=== PATIENT | male | born 1940 | race Caucasian/White ===

== ENCOUNTER 2017-03-23 09:37 | Emergency (ER) | payer MEDICARE, BC, SELFPAY | END 2017-03-23 13:12 | disposition home or self-care (01) | PROVIDERS: Emergency Provider Emergency Medicine; Family Provider Nurse Practitioner; Visit Provider Emergency Medicine | DX: R07.9 Chest pain, unspecified (principal); S22.49XA Multiple fractures of ribs, unspecified side, initial encounter for closed fracture; W19.XXXA Unspecified fall, initial encounter; I10 Essential (primary) hypertension; E78.5 Hyperlipidemia, unspecified; E11.8 Type 2 diabetes mellitus with unspecified complications; Y93.9 Activity, unspecified; Y92.9 Unspecified place or not applicable; Z79.02 Long term (current) use of antithrombotics/antiplatelets; Z79.82 Long term (current) use of aspirin; Z79.899 Other long term (current) drug therapy; Z87.891 Personal history of nicotine dependence | CPT/HCPCS: 36415; 71010; 80053; 82550; 82553; 84484; 85025; 93005; 93041; 96374; 99284 ==

== ENCOUNTER → 2017-04-27 10:50 | Outpatient (CLI) | payer MEDICARE, OTHER, SELFPAY ==
--- NOTE | 2017-04-27 11:01 | NVE_ITS ---
Venous Exam Indications: 782.3 Edema. IMPRESSIONS 1. There is no evidence of significant Reflux. 2. No evidence of deep or superficial vein thrombosis involving the left lower extremity Left lower extremity venous duplex evaluation. Doppler flow study including spectral analysis, color and gomez scale imaging. Location: Vascular laboratory. Patient status: Outpatient. CRITICAL FINDINGS - Reported to: LU Moe Read back and verified. - 04/27/17 - 1115 - NONE Tables: Venous flow and imaging: + +-------+ + Location Overall Flow properties + +-------+ + Left common femoral Patent Normal phasicity; spontaneous; normal augmentation; compressible + +-------+ + Left saphenofemoral junction Patent Compressible + +-------+ + Left profunda femoral Patent Compressible + +-------+ + Left femoral Patent Normal phasicity; spontaneous; normal augmentation; compressible + +-------+ + Left greater saphenous Patent Normal phasicity; spontaneous; normal augmentation; compressible + +-------+ + Left popliteal Patent Normal phasicity; spontaneous; normal augmentation; compressible + +-------+ + Left posterior tibial Patent Compressible + +-------+ + Left peroneal Patent Compressible + +-------+ + Left gastrocnemius Patent Compressible + +-------+ + Left soleal Patent Compressible + +-------+ + (Report amended ) Electronically signed by: Salas Alex [id number]
== END ==
PROVIDERS: PCP Nurse Practitioner; Visit Provider Internal Medicine Cardiovascular Disease
DX: M79.605 Pain in left leg (principal); I25.10 Atherosclerotic heart disease of native coronary artery without angina pectoris; I10 Essential (primary) hypertension; N18.3 Chronic kidney disease, stage 3 (moderate); E78.5 Hyperlipidemia, unspecified; I45.10 Unspecified right bundle-branch block
CPT/HCPCS: 93971

== ENCOUNTER → 2017-05-06 11:09 | Outpatient (CLI) | payer MEDICARE, OTHER, SELFPAY ==
[2017-05-06 16:39] LABS: Anion Gap 15.4 mEq/L (5-15); Blood Urea Nitrogen 33 mg/dL (7-18); Carbon Dioxide 26 mmol/L (21.0-32.0); Chloride 101 mmol/L (98-107); Creatinine,Serum 2.49 mg/dL (0.70-1.30); Estimated Glomerular Filt Rate 25 ml/min (>60); GFR (African American) 31 ML/MIN (>60); Glucose 157 mg/dL (74-106); Potassium 4.4 mmoL/L (3.5-5.1); Sodium 138 mmol/L (136-145)
== END ==
PROVIDERS: PCP Nurse Practitioner; Visit Provider Internal Medicine Cardiovascular Disease
DX: N18.3 Chronic kidney disease, stage 3 (moderate) (principal); E78.5 Hyperlipidemia, unspecified; I10 Essential (primary) hypertension; I25.10 Atherosclerotic heart disease of native coronary artery without angina pectoris
CPT/HCPCS: 36415; 80048

== ENCOUNTER → 2017-05-26 11:33 | Outpatient (CLI) | payer MEDICARE, OTHER, SELFPAY ==
[2017-05-26 13:36] LABS: Carbon Dioxide 26 mmol/L (21.0-32.0); Chloride 100 mmol/L (98-107); Sodium 136 mmol/L (136-145)
[2017-05-26 13:55] LABS: Blood Urea Nitrogen 38 mg/dL (7-18); Creatinine,Serum 2.54 mg/dL (0.70-1.30); Estimated Glomerular Filt Rate 25 ml/min (>60); GFR (African American) 30 ML/MIN (>60); Glucose 187 mg/dL (74-106)
== END ==
PROVIDERS: Family Provider Nurse Practitioner; PCP Nurse Practitioner; Visit Provider Internal Medicine Cardiovascular Disease
DX: R60.0 Localized edema (principal); N18.3 Chronic kidney disease, stage 3 (moderate); I25.10 Atherosclerotic heart disease of native coronary artery without angina pectoris; I10 Essential (primary) hypertension; E78.4 Other hyperlipidemia
CPT/HCPCS: 36415; 80048

== ENCOUNTER 2017-07-07 07:49 | Observation (INO) ==
[2017-07-07 09:02] LABS: Basophils % 0.7 % (0.1-2.0); Eosinophils # 0.2 K/mm3 (0.0-0.4); Eosinophils % 3.6 % (0.1-12.0); Hematocrit 37.8 % (42.0-52.0); Hemoglobin 12.4 g/dL (14.1-18.0); Lymphocytes # 1.9 K/mm3 (0.7-4.5); Lymphocytes % 28.3 K/mm3 (10-50); Mean Corpuscular HGB Conc 32.7 g/dL (31.8-35.4); Mean Corpuscular Hemoglobin 29.7 pg (27.0-31.2); Mean Corpuscular Volume 90.8 fl (80-94); Mean Platelet Volume 7.8 fl (7.4-10.4); Monocytes # 0.4 K/mm3 (0.1-1.0); Monocytes % 6.4 % (1.7-9.3); Neutrophils % 61.1 % (37.0-80.0); Platelet Count 241 K/mm3 (142-424); Red Blood Count 4.17 M/mm3 (4.60-6.20); Red Cell Distribution Width 13.7 % (11.5-17.5); White Blood Count 6.6 K/mm3 (4.8-10.8)
[2017-07-07 09:14] LABS: Anion Gap 11.3 mEq/L (5-15); Potassium 4.3 mmoL/L (3.5-5.1)
--- NOTE | 2017-07-07 13:55 | Progress Note ---
[facility] Anesthesia Checklist - Patient Identification Patient Identification: Arm Band - Structural Data Admitted From: Home Planned Operative Procedure/s: left heart cath Consent for Planned Operative Procedure(s) Verified: Yes Verified Documents: Surgical Consent, History and Physical - NPO Status Verified Time NPO: 00:00 - Additional verifications Anesthesia Reactions: No - Airway Assessment C-Spine Mobility Assessed: Yes (mp2) TMJ Mobility Assessed: Yes - Neurological Assessment Level of Consciousness: Awake, Alert - Anesthesia Plan Anesthesia Risk discussed: Yes Anesthesia Plan: Verified ASA Class: III Anesthesia Type: [facility] Anesthesia HX I have reviewed the patient's past medical history: Yes Medical History: Reports:: Coronary Artery Disease, Diabetes Mellitus Type 2, Hyperlipidemia, Hypertension, Renal Disease, Renal Insufficiency Denies:: Cancer, Diabetes Mellitus Type 1, Internal Pacemaker, MRSA, Seizures Other Surgeries: Yes: Hernia Repair, Other. No: Pacemaker Amputation: No Fractures: No *Family Hx:: Coronary Artery Disease, Heart Attack
--- NOTE | 2017-07-07 16:39 | History & Physical Report ---
*Admission Date: 07/07/17 *Chief complaint: As of breath *History of present illness: 6-year-old male with known coronary artery disease who has been experiencing nocturnal chest pain and shortness of breath despite medical therapies. Today he underwent left heart catheterization which revealed patent stents but evidence of pulmonary hypertension was discovered. Cardiology service requested admission to primary service for monitoring of response to diuretics. Patient was given 80 mg of Lasix after cardiac catheterization at approximately 130 and at the time of this dictation (430) has put out nearly 2 L of clear urine. Patient himself has known atrial fibrillation in addition to coronary artery disease. He has been experiencing shortness of breath in addition to chest pain. He is resting comfortably in the bed at this time and denies any problems. [facility] History I have reviewed the patient's past medical history: Yes Medical History: Reports:: Congestive Heart Failure, Coronary Artery Disease, Diabetes Mellitus Type 2, Hyperlipidemia, Hypertension, Renal Disease, Renal Insufficiency Denies:: Cancer, Diabetes Mellitus Type 1, Internal Pacemaker, MRSA, Seizures Other Surgeries: Yes: Hernia Repair, Other. No: Pacemaker Amputation: No Fractures: No - *Social History Educational Level: Attended High School Smoking Status: Former smoker Tobacco Type: cigarettes Alcohol Intake: never Alcohol Intake Frequency:: other Occupational Status: retired, disabled Housing: house Household Members: significant other - Psychiatric History Expresses thoughts of harming self/others: None Suicide Plan Description: No Plan *Family Hx:: Coronary Artery Disease, Heart Attack Review of Systems - Review of Systems Review of systems:: pertinent systems reviewed and negative unless documented below Meds Home Medications Medication Instructions Recorded Confirmed Type atenolol 25 mg tablet 25 mg PO QDAY 04/26/17 07/07/17 History calcium carbonate 600 mg calcium 600 mg PO QDAY tab 04/26/17 07/07/17 History (1,500 mg) tablet cholecalciferol (vitamin D3) 5,000 5,000 unit PO QDAY 04/26/17 07/07/17 History unit capsule clopidogrel 75 mg tablet 75 mg PO QDAY 04/26/17 07/07/17 History diphenhydramine 25 mg capsule 25 mg PO Q6H cap 04/26/17 07/07/17 History diphenoxylate-atropine 2.5 2 tab PO Q6H tab 04/26/17 07/07/17 History mg-0.025 mg tablet fenofibrate nanocrystallized 145 145 mg PO QDAY 04/26/17 07/07/17 History mg tablet fluticasone 50 mcg/actuation nasal 50 mcg INTRANASAL ONCE 04/26/17 07/07/17 History spray,suspension furosemide 40 mg tablet 40 mg PO QDAY 04/26/17 07/07/17 History glucosamine HCl 1,500 mg tablet 1,500 mg PO QDAY 04/26/17 07/07/17 History hydralazine 25 mg tablet 12.5 mg PO TID tab 04/26/17 07/07/17 History insulin detemir (U-100) 100 65 unit SUB-Q QAM ml 04/26/17 07/07/17 History unit/mL subcutaneous solution lactobacillus combination no.8 3 3,000 mmu cells PO QDAY 04/26/17 07/07/17 History billion cell capsule loperamide 2 mg tablet 2 mg PO QDAY tab 04/26/17 07/07/17 History loratadine 10 mg tablet 10 mg PO QDAY 04/26/17 07/07/17 History lovastatin 40 mg tablet 40 mg PO QDAY 04/26/17 07/07/17 History methylsulfonylmethane 1,000 mg 1,000 mg PO ONCE cap 04/26/17 07/07/17 History capsule omega 7-nxe-pdr-fish oil 1,000 mg 1 cap PO DAILY 04/26/17 07/07/17 History (120 mg-180 mg) capsule potassium 99 mg tablet 99 mg PO QDAY 04/26/17 07/07/17 History tamsulosin 0.4 mg capsule 0.4 mg PO QDAY 04/26/17 07/07/17 History isosorbide mononitrate ER 30 mg 30 mg PO BID tab 07/06/17 07/07/17 History tablet,extended release 24 hr Ranolazine [Ranexa] 1,000 mg PO Q12H 07/07/17 07/07/17 History Allergies Allergy/AdvReac Type Severity Reaction Status Date / Time azithromycin Allergy Mild Verified 07/07/17 16:19 clindamycin Allergy Mild Verified 07/07/17 16:19 Penicillins Allergy Mild Verified 07/07/17 16:19 ticagrelor [From Brilinta] Allergy Mild Verified 07/07/17 16:19 mycins Allergy Mild Uncoded 07/07/17 16:19 Exam Vital signs and Labs for Last 24 Hours: Temp Pulse Resp BP Pulse Ox 98.1 F 79 18 185/83 95 07/07/17 15:47 07/07/17 15:47 07/07/17 15:47 07/07/17 15:47 07/07/17 15:47 Laboratory Results - last 24 hr 07/07/17 08:47: WBC 6.6, RBC 4.17 L, Hgb 12.4 L, Hct 37.8 L, MCV 90.8, MCH 29.7 , MCHC 32.7, RDW 13.7, Plt Count 241, MPV 7.8, Neut % (Auto) 61.1, Lymph % (Auto ) 28.3, [place] % (Auto) 6.4, Eos % (Auto) 3.6, Baso % (Auto) 0.7, Neut # (Auto) 4.0, Lymph # (Auto) 1.9, [place] # (Auto) 0.4, Eos # (Auto) 0.2, Baso # (Auto) 0.0 07/07/17 08:47: Sodium 141, Potassium 4.3, Chloride 104, Carbon Dioxide 30, Anion Gap 11.3, BUN 52 H, Creatinine 3.15 H, Estimated Creat Clear 29, Estimated GFR 19 L*, Est GFR ( Amer) 23 L, Glucose 127 H, Troponin I 0.02 I & O for Last 24 hours: Intake & Output 07/05/17 07/06/17 07/07/17 07/08/17 11:59 11:59 11:59 11:59 Output Total 1700 / 1700 Balance -1700 / -1700 Weight 231 lb 222 lb Narrative: Patient is awake and alert sitting up in bed. Oropharynx is moist. Neck is without jugular venous distention. Lungs are clear to auscultation. Heart rate is irregularly irregular. Abdomen is soft and nontender. Extremities are without any edema and he has a dry lightly erythematous rash on the dorsum of the left foot. H&P: Result - Labs Labs: Short CBC 07/07/17 Range/Units 08:47 WBC 6.6 (4.8-10.8) K/mm3 Hgb 12.4 L (14.1-18.0) g/dL Hct 37.8 L (42.0-52.0) % Plt Count 241 (142-424) K/mm3 BMP 07/07/17 08:47 Sodium 141 Potassium 4.3 Chloride 104 Carbon Dioxide 30 BUN 52 H Creatinine 3.15 H Glucose 127 H Cardiac Enzymes 07/07/17 Range/Units 08:47 Troponin I 0.02 (0.00-0.06) ng/ml Assessment and Plan (1) Chronic kidney disease, stage IV (severe) Current visit: Yes Status: Acute Category: Medical Code(s): N18.4 - Chronic kidney disease, stage 4 (severe) (2) Pulmonary artery hypertension Current visit: Yes Status: Acute Category: Medical Code(s): I27.21 - Secondary pulmonary arterial hypertension (3) Coronary arteriosclerosis Current visit: No Status: Chronic Category: Medical Code(s): I25.10 - Atherosclerotic heart disease of [place] coronary artery without angina pectoris (4) Hypertensive disorder Current visit: No Status: Chronic Qualifiers: Category: Medical Code(s): I10 - Essential (primary) hypertension - Assessment and plan all Dx Assessment and Plan for all problems:: Patient is having an excellent response to diuresis. Benjamin catheter is in place. Monitor further urine output overnight but I do not plan to give him any further diuretics. If there are no significant changes patient will be discharged in the morning
--- NOTE | 2017-07-07 16:55 | Discharge Summary ---
General - General Admission date: 07/07/17 Discharge date: 07/08/17 HPI HPI: MD 6-year-old male with known coronary artery disease who has been experiencing nocturnal chest pain and shortness of breath despite medical therapies. Today he underwent left heart catheterization which revealed patent stents but evidence of pulmonary hypertension was discovered. Cardiology service requested admission to primary service for monitoring of response to diuretics. Patient was given 80 mg of Lasix after cardiac catheterization at approximately 130 and at the time of this dictation (430) has put out nearly 2 L of clear urine. Patient himself has known atrial fibrillation in addition to coronary artery disease. He has been experiencing shortness of breath in addition to chest pain. He is resting comfortably in the bed at this time and denies any problems. Hospital Course Hospital Course: Patient was admitted after being given Lasix for diuresis due to elevated left ventricular diastolic pressures and pulmonary hypertension. Patient had excellent response to initial dose of 80 mg of furosemide intravenously putting out over 2 L of fluid within a few hours of administration of medication. Urine output was monitored with Benjamin catheter. Patient did not have any dyspnea while hospitalized. He continued good urine output and was discharged home the following morning. Patient will follow up with Dr. Rodrigez in his clinic. Objective Vital signs: Temp Pulse Resp BP Pulse Ox 98.1 F 79 18 185/83 95 07/07/17 15:47 07/07/17 15:47 07/07/17 15:47 07/07/17 15:47 07/07/17 15:47 Results Labs on day of discharge: Labs from last 24 hours 07/07/17 07/07/17 08:47 08:47 WBC 6.6 RBC 4.17 L Hgb 12.4 L Hct 37.8 L MCV 90.8 MCH 29.7 MCHC 32.7 RDW 13.7 Plt Count 241 MPV 7.8 Neut % (Auto) 61.1 Lymph % (Auto) 28.3 [place] % (Auto) 6.4 Eos % (Auto) 3.6 Baso % (Auto) 0.7 Neut # (Auto) 4.0 Lymph # (Auto) 1.9 [place] # (Auto) 0.4 Eos # (Auto) 0.2 Baso # (Auto) 0.0 Sodium 141 Potassium 4.3 Chloride 104 Carbon Dioxide 30 Anion Gap 11.3 BUN 52 H Creatinine 3.15 H Estimated Creat Clear 29 Estimated GFR 19 L* Est GFR ( Amer) 23 L Glucose 127 H Troponin I 0.02 DS: Diagnosis - Discharge Diagnosis (1) Pulmonary artery hypertension Status: Acute (2) Chronic kidney disease, stage IV (severe) Status: Acute (3) Coronary arteriosclerosis Status: Chronic (4) Hypertensive disorder Status: Chronic Discharge Plan - Patient Discharge Instructions ACTIVITY: Continue current activity DIET: other (CHF) Patient Instructions: Heart Failure, Cardiac Catheterization, Surgical Site Infection - Follow up Plan Follow up with: Landon Freitas MD [Staff Physician] - 07/12/17 Yael Tapia APRN [Primary Care Provider] - 07/14/17 Disposition: Home, Self-[facility] Medications: Home Medications Medication Instructions Recorded Confirmed Type atenolol 25 mg tablet 25 mg PO QDAY 04/26/17 07/07/17 History calcium carbonate 600 mg calcium 600 mg PO QDAY tab 04/26/17 07/07/17 History (1,500 mg) tablet cholecalciferol (vitamin D3) 5,000 5,000 unit PO QDAY 04/26/17 07/07/17 History unit capsule clopidogrel 75 mg tablet 75 mg PO QDAY 04/26/17 07/07/17 History diphenhydramine 25 mg capsule 25 mg PO Q6H cap 04/26/17 07/07/17 History diphenoxylate-atropine 2.5 2 tab PO Q6H tab 04/26/17 07/07/17 History mg-0.025 mg tablet fenofibrate nanocrystallized 145 145 mg PO QDAY 04/26/17 07/07/17 History mg tablet fluticasone 50 mcg/actuation nasal 50 mcg INTRANASAL ONCE 04/26/17 07/07/17 History spray,suspension glucosamine HCl 1,500 mg tablet 1,500 mg PO QDAY 04/26/17 07/07/17 History insulin detemir (U-100) 100 65 unit SUB-Q QAM ml 04/26/17 07/07/17 History unit/mL subcutaneous solution lactobacillus combination no.8 3 3,000 mmu cells PO QDAY 04/26/17 07/07/17 History billion cell capsule loperamide 2 mg tablet 2 mg PO QDAY tab 04/26/17 07/07/17 History loratadine 10 mg tablet 10 mg PO QDAY 04/26/17 07/07/17 History lovastatin 40 mg tablet 40 mg PO QDAY 04/26/17 07/07/17 History methylsulfonylmethane 1,000 mg 1,000 mg PO ONCE cap 04/26/17 07/07/17 History capsule omega 7-ftv-mek-fish oil 1,000 mg 1 cap PO DAILY 04/26/17 07/07/17 History (120 mg-180 mg) capsule potassium 99 mg tablet 99 mg PO QDAY 04/26/17 07/07/17 History tamsulosin 0.4 mg capsule 0.4 mg PO QDAY 04/26/17 07/07/17 History isosorbide mononitrate ER 30 mg 30 mg PO BID tab 07/06/17 07/07/17 History tablet,extended release 24 hr Ranolazine [Ranexa] 1,000 mg PO Q12H 07/07/17 07/07/17 History Prescriptions/Medication Reconciliation: Continue atenolol 25 mg tablet 25 mg PO QDAY diphenhydramine 25 mg capsule 25 mg PO Q6H cap calcium carbonate 600 mg calcium (1,500 mg) tablet 600 mg PO QDAY tab fluticasone 50 mcg/actuation nasal spray,suspension 50 mcg INTRANASAL ONCE glucosamine HCl 1,500 mg tablet 1,500 mg PO QDAY insulin detemir (U-100) 100 unit/mL subcutaneous solution 65 unit SUB-Q QAM ml diphenoxylate-atropine 2.5 mg-0.025 mg tablet 2 tab PO Q6H tab loratadine 10 mg tablet 10 mg PO QDAY lovastatin 40 mg tablet 40 mg PO QDAY methylsulfonylmethane 1,000 mg capsule 1,000 mg PO ONCE cap potassium 99 mg tablet 99 mg PO QDAY lactobacillus combination no.8 3 billion cell capsule 3,000 mmu cells PO QDAY tamsulosin 0.4 mg capsule 0.4 mg PO QDAY fenofibrate nanocrystallized 145 mg tablet 145 mg PO QDAY cholecalciferol (vitamin D3) 5,000 unit capsule 5,000 unit PO QDAY loperamide 2 mg tablet 2 mg PO QDAY tab isosorbide mononitrate ER 30 mg tablet,extended release 24 hr 30 mg PO BID tab nitroglycerin 0.4 mg sublingual tablet 0.4 mg SUBLINGUAL Q5M PRN #100 tab PRN Reason: chest pain omega 7-zqd-oxh-fish oil 1,000 mg (120 mg-180 mg) capsule 1 cap PO DAILY clopidogrel 75 mg tablet 75 mg PO QDAY Ranolazine [Ranexa] 1,000 mg PO Q12H Hydralazine HCl [Hydralazine HCl 25mg Tablet] 12.5 mg PO TID #90 tab Furosemide [Furosemide 40MG tAB] 40 mg PO QDAY #60 tab Discontinued furosemide 20 mg tablet 20 mg PO QDAY #30 tab
[2017-07-08 05:46] LABS: Hematocrit 35.1 % (42.0-52.0); Hemoglobin 11.4 g/dL (14.1-18.0)
--- NOTE | 2017-07-08 07:57 | Progress Note ---
Internal Medicine - PN: Subj *Date: 07/08/17 *Time: 07:56 Interval history: Saw patient this morning, covering for Dr. Da Silva, patient is pleasant, up on the side of the bed eating breakfast, feels great, no chest pain, Exam Vital signs and Labs for Last 24 Hours: Temp Pulse Resp BP Pulse Ox 97.6 F 60 18 112/44 92 L 07/08/17 03:52 07/08/17 04:00 07/08/17 03:52 07/08/17 03:52 07/08/17 03:52 Laboratory Results - last 24 hr 07/07/17 08:47: WBC 6.6, RBC 4.17 L, Hgb 12.4 L, Hct 37.8 L, MCV 90.8, MCH 29.7 , MCHC 32.7, RDW 13.7, Plt Count 241, MPV 7.8, Neut % (Auto) 61.1, Lymph % (Auto ) 28.3, [place] % (Auto) 6.4, Eos % (Auto) 3.6, Baso % (Auto) 0.7, Neut # (Auto) 4.0, Lymph # (Auto) 1.9, [place] # (Auto) 0.4, Eos # (Auto) 0.2, Baso # (Auto) 0.0 07/07/17 08:47: Sodium 141, Potassium 4.3, Chloride 104, Carbon Dioxide 30, Anion Gap 11.3, BUN 52 H, Creatinine 3.15 H, Estimated Creat Clear 29, Estimated GFR 19 L*, Est GFR ( Amer) 23 L, Glucose 127 H, Troponin I 0.02 07/07/17 21:37: POC Glucose 206 07/08/17 05:30: Hgb 11.4 L, Hct 35.1 L 07/08/17 05:30: Creatinine 3.04 H, Estimated Creat Clear 29, Estimated GFR 20 L , Est GFR ( Amer) 24 L I & O for Last 24 hours: Intake & Output 07/05/17 07/06/17 07/07/17 07/08/17 11:59 11:59 11:59 11:59 Intake Total 720 / 720 Output Total 2150 / 2150 Balance -1430 / -1430 Weight 231 lb 219 lb 6 oz Narrative: Lungs clear bilaterally, heart rate regular. No edema. Patient is awake, alert and pleasant. Assessment and Plan (1) Chronic kidney disease, stage IV (severe) Current visit: Yes Status: Acute Category: Medical Code(s): N18.4 - Chronic kidney disease, stage 4 (severe) (2) Pulmonary artery hypertension Current visit: Yes Status: Acute Category: Medical Code(s): I27.21 - Secondary pulmonary arterial hypertension (3) Coronary arteriosclerosis Current visit: No Status: Chronic Category: Medical Code(s): I25.10 - Atherosclerotic heart disease of [place] coronary artery without angina pectoris (4) Hypertensive disorder Current visit: No Status: Chronic Qualifiers: Category: Medical Code(s): I10 - Essential (primary) hypertension - Assessment and plan all Dx Assessment and Plan for all problems:: Patient is nicely improved after diuresis. Agree with discharge plan outlined by Dr. Da Silva.
== END 2017-07-08 09:15 | disposition home or self-care (01) ==
LOC: CATHLAB 07:49 → 2ND 15:27 → INTOOBSV 15:27
PROVIDERS: ADMIT Family Medicine; ATTEND Family Medicine

== ENCOUNTER → 2017-08-11 08:41 | Outpatient (CLI) | payer MEDICARE, SELFPAY ==
[2017-08-11 10:46] LABS: Anion Gap 12.7 mEq/L (5-15); Blood Urea Nitrogen 35 mg/dL (7-18); Carbon Dioxide 29 mmol/L (21.0-32.0); Chloride 106 mmol/L (98-107); Creatinine,Serum 2.68 mg/dL (0.70-1.30); Estimated Glomerular Filt Rate 23 ml/min (>60); GFR (African American) 28 ML/MIN (>60); Glucose 99 mg/dL (74-106); Potassium 4.7 mmoL/L (3.5-5.1); Sodium 143 mmol/L (136-145)
== END ==
PROVIDERS: Visit Provider Internal Medicine Cardiovascular Disease
DX: I50.9 Heart failure, unspecified (principal); I10 Essential (primary) hypertension; I25.10 Atherosclerotic heart disease of native coronary artery without angina pectoris
CPT/HCPCS: 36415; 80048

== ENCOUNTER → 2017-09-01 08:27 | Outpatient (CLI) | payer MEDICARE, SELFPAY ==
[2017-09-01 10:07] LABS: Anion Gap 14.3 mEq/L (5-15); Blood Urea Nitrogen 66 mg/dL (7-18); Carbon Dioxide 30 mmol/L (21.0-32.0); Chloride 102 mmol/L (98-107); Estimated Glomerular Filt Rate 16 ml/min (>60); GFR (African American) 19 ML/MIN (>60); Glucose 111 mg/dL (74-106); Potassium 4.3 mmoL/L (3.5-5.1); Sodium 142 mmol/L (136-145)
[2017-09-01 10:18] LABS: Creatinine,Serum 3.72 mg/dL (0.70-1.30)
== END ==
PROVIDERS: Visit Provider Internal Medicine Cardiovascular Disease
DX: R60.9 Edema, unspecified (principal); I25.10 Atherosclerotic heart disease of native coronary artery without angina pectoris; I10 Essential (primary) hypertension
CPT/HCPCS: 36415; 80048

== ENCOUNTER → 2017-09-05 08:04 | Outpatient (CLI) | payer MEDICARE, SELFPAY ==
[2017-09-05 10:46] LABS: Anion Gap 13.5 mEq/L (5-15); Blood Urea Nitrogen 66 mg/dL (7-18); Carbon Dioxide 31 mmol/L (21.0-32.0); Chloride 100 mmol/L (98-107); Estimated Glomerular Filt Rate 15 ml/min (>60); GFR (African American) 19 ML/MIN (>60); Glucose 79 mg/dL (74-106); Potassium 4.5 mmoL/L (3.5-5.1); Sodium 140 mmol/L (136-145)
[2017-09-05 11:06] LABS: Creatinine,Serum 3.82 mg/dL (0.70-1.30)
== END ==
PROVIDERS: Visit Provider Physician Assistant
DX: N18.4 Chronic kidney disease, stage 4 (severe) (principal); I25.10 Atherosclerotic heart disease of native coronary artery without angina pectoris; E78.5 Hyperlipidemia, unspecified; I10 Essential (primary) hypertension
CPT/HCPCS: 36415; 80048

== ENCOUNTER → 2017-10-03 07:53 | Outpatient (CLI) | payer MEDICARE, SELFPAY ==
[2017-10-03 08:02] LABS: Microscopic, Urine URINE MICROSCOPIC (MICROSCOPIC)
[2017-10-03 08:30] LABS: Appearance,Urine CLEAR (Clear); Bilirubin,Urine Negative (Negative); Blood, Urine Negative (Negative); Color,Urine YELLOW (Yellow); Glucose,Urine (UA) Negative (Negative); Ketones,Urine Negative (Negative); Leukocyte Esterase,Urine Negative (Negative); Nitrate,Urine Negative (Negative); Protein,Urine Negative (Negative); Specific Gravity, Urine 1.015 (1.005-1.030); Urobilinogen,Urine 0.2 EU/dl (0.2)
[2017-10-03 08:33] LABS: Basophils # 0.1 K/mm3 (0-0.2); Basophils % 0.8 % (0.1-2.0); Eosinophils # 0.4 K/mm3 (0.0-0.4); Eosinophils % 5.3 % (0.1-12.0); Hematocrit 38.8 % (42.0-52.0); Hemoglobin 12.7 g/dL (14.1-18.0); Lymphocytes # 1.9 K/mm3 (0.7-4.5); Lymphocytes % 27.3 K/mm3 (10-50); Mean Corpuscular HGB Conc 32.8 g/dL (31.8-35.4); Mean Corpuscular Hemoglobin 29.7 pg (27.0-31.2); Mean Corpuscular Volume 90.6 fl (80-94); Mean Platelet Volume 7.6 fl (7.4-10.4); Monocytes # 0.5 K/mm3 (0.1-1.0); Monocytes % 6.6 % (1.7-9.3); Neutrophils # 4.1 K/mm3 (1.8-7.8); Platelet Count 252 K/mm3 (142-424); Red Blood Count 4.28 M/mm3 (4.60-6.20); Red Cell Distribution Width 13.8 % (11.5-17.5); White Blood Count 6.8 K/mm3 (4.8-10.8)
[2017-10-03 08:48] LABS: Bacteria,Urine Trace /lpf; Squamous Epithelial Cell,Urine Occasional #/hpf (0-5)
[2017-10-03 08:51] LABS: Creatinine,Urine Random 96 mg/dL (20-320); Total Protein,Urine Random 18.5 mg/dL (0.0-11.9)
[2017-10-03 09:02] LABS: Albumin Level 3.6 gm/dL (3.4-5.0); Anion Gap 14.1 mEq/L (5-15); Blood Urea Nitrogen 47 mg/dL (7-18); Calcium 8.4 mg/dL (8.5-10.1); Carbon Dioxide 28 mmol/L (21.0-32.0); Chloride 103 mmol/L (98-107); Creatinine,Serum 3.48 mg/dL (0.70-1.30); Estimated Glomerular Filt Rate 17 ml/min (>60); GFR (African American) 21 ML/MIN (>60); Glucose 96 mg/dL (74-106); Potassium 4.1 mmoL/L (3.5-5.1); Sodium 141 mmol/L (136-145)
[2017-10-05 08:06] LABS: Vitamin D 25 Hydroxy 56.1 ng/mL (30.0-100.0)
[2017-10-05 08:07] LABS: Parathyroid Hormone Intact 66 pg/mL (15-65)
== END ==
PROVIDERS: Visit Provider Internal Medicine Nephrology
DX: N18.4 Chronic kidney disease, stage 4 (severe) (principal)
CPT/HCPCS: 36415; 80069; 81001; 82570; 82652; 83970; 84155; 85025

== ENCOUNTER → 2017-10-09 15:39 | Outpatient (POV) | payer MEDICARE, SELFPAY | PROVIDERS: Family Provider Nurse Practitioner; PCP Nurse Practitioner; Visit Provider Internal Medicine Nephrology | DX: Z00.00 Encounter for general adult medical examination without abnormal findings (principal) ==

== ENCOUNTER → 2017-12-27 11:50 | Outpatient (CLI) | payer MEDICARE, SELFPAY ==
[2017-12-27 14:08] LABS: Chloride 103 mmol/L (98-107); Potassium 3.9 mmoL/L (3.5-5.1)
[2017-12-27 14:50] LABS: Anion Gap 15.9 mEq/L (5-15); Blood Urea Nitrogen 73 mg/dL (7-18); Calcium 8.6 mg/dL (8.5-10.1); Carbon Dioxide 26 mmol/L (21.0-32.0); Estimated Glomerular Filt Rate 14 ml/min (>60); GFR (African American) 17 ML/MIN (>60); Glucose 189 mg/dL (74-106); Sodium 141 mmol/L (136-145)
[2017-12-27 14:59] LABS: Creatinine,Serum 4.12 mg/dL (0.70-1.30)
== END ==
PROVIDERS: Family Provider Nurse Practitioner; PCP Nurse Practitioner; Visit Provider Internal Medicine Cardiovascular Disease
DX: E78.5 Hyperlipidemia, unspecified (principal); I25.10 Atherosclerotic heart disease of native coronary artery without angina pectoris; N18.3 Chronic kidney disease, stage 3 (moderate)
CPT/HCPCS: 36415; 80048

== ENCOUNTER → 2017-12-28 09:43 | Outpatient (CLI) | payer MEDICARE, SELFPAY ==
[2017-12-28 11:23] LABS: Blood Urea Nitrogen 70 mg/dL (7-18); Calcium 8.4 mg/dL (8.5-10.1); Carbon Dioxide 28 mmol/L (21.0-32.0); Chloride 100 mmol/L (98-107); Estimated Glomerular Filt Rate 15 ml/min (>60); GFR (African American) 18 ML/MIN (>60); Glucose 153 mg/dL (74-106); Sodium 139 mmol/L (136-145)
[2017-12-28 11:53] LABS: Creatinine,Serum 3.92 mg/dL (0.70-1.30)
== END ==
PROVIDERS: PCP Nurse Practitioner; Visit Provider Physician Assistant
DX: E78.5 Hyperlipidemia, unspecified (principal); I25.10 Atherosclerotic heart disease of native coronary artery without angina pectoris; I27.21 Secondary pulmonary arterial hypertension; N18.4 Chronic kidney disease, stage 4 (severe); R60.0 Localized edema
CPT/HCPCS: 36415; 80048; 83880

== ENCOUNTER → 2018-01-03 11:35 | Outpatient (CLI) | payer MEDICARE, SELFPAY ==
[2018-01-03 12:46] LABS: Basophils # 0.1 K/mm3 (0-0.2); Basophils % 0.7 % (0.1-2.0); Eosinophils # 0.2 K/mm3 (0.0-0.4); Eosinophils % 2.6 % (0.1-12.0); Hematocrit 35.3 % (42.0-52.0); Hemoglobin 11.6 g/dL (14.1-18.0); Lymphocytes # 1.8 K/mm3 (0.7-4.5); Lymphocytes % 24.9 K/mm3 (10-50); Mean Corpuscular HGB Conc 32.9 g/dL (31.8-35.4); Mean Corpuscular Hemoglobin 29.5 pg (27.0-31.2); Mean Corpuscular Volume 89.8 fl (80-94); Mean Platelet Volume 7.6 fl (7.4-10.4); Monocytes # 0.4 K/mm3 (0.1-1.0); Monocytes % 5.1 % (1.7-9.3); Neutrophils # 4.9 K/mm3 (1.8-7.8); Neutrophils % 66.8 % (37.0-80.0); Platelet Count 268 K/mm3 (142-424); Red Blood Count 3.93 M/mm3 (4.60-6.20); Red Cell Distribution Width 14.3 % (11.5-17.5); White Blood Count 7.3 K/mm3 (4.8-10.8)
[2018-01-03 14:24] LABS: Albumin Level 3.5 gm/dL (3.4-5.0); Anion Gap 14.8 mEq/L (5-15); Blood Urea Nitrogen 62 mg/dL (7-18); Calcium 8.5 mg/dL (8.5-10.1); Carbon Dioxide 29 mmol/L (21.0-32.0); Chloride 98 mmol/L (98-107); Estimated Glomerular Filt Rate 15 ml/min (>60); GFR (African American) 18 ML/MIN (>60); Glucose 121 mg/dL (74-106); Phosphorous 4.1 mg/dL (2.4-4.9); Potassium 3.8 mmoL/L (3.5-5.1); Sodium 138 mmol/L (136-145)
[2018-01-03 14:28] LABS: Creatinine,Serum 3.85 mg/dL (0.70-1.30)
[2018-01-04 08:37] LABS: Vitamin D 25 Hydroxy 56.2 ng/mL (30.0-100.0)
[2018-01-04 16:21] LABS: Calcium, Ionized 4.8 mg/dL (4.5-5.6)
[2018-01-05 06:31] LABS: Parathyroid Hormone Intact 76 pg/mL (15-65)
== END ==
PROVIDERS: PCP Nurse Practitioner; Visit Provider Internal Medicine Nephrology
DX: N18.4 Chronic kidney disease, stage 4 (severe) (principal)
CPT/HCPCS: 36415; 80069; 82330; 82652; 83970; 85025

== ENCOUNTER → 2018-01-17 13:48 | Outpatient (CLI) | payer MEDICARE, SELFPAY ==
[2018-01-17 15:47] VITALS: PULSE 67; PULSE 72
== END ==
PROVIDERS: Family Provider Nurse Practitioner; PCP Nurse Practitioner; Visit Provider Internal Medicine Cardiovascular Disease
DX: R06.09 Other forms of dyspnea (principal)
CPT/HCPCS: 94060; 94640

== ENCOUNTER → 2018-03-09 11:24 | Outpatient (CLI) | payer MEDICARE, SELFPAY ==
[2018-03-09 12:02] LABS: Basophils # 0.1 K/mm3 (0-0.2); Basophils % 0.8 % (0.1-2.0); Eosinophils # 0.3 K/mm3 (0.0-0.4); Eosinophils % 4.1 % (0.1-12.0); Hematocrit 37.1 % (42.0-52.0); Hemoglobin 12.1 g/dL (14.1-18.0); Lymphocytes # 1.8 K/mm3 (0.7-4.5); Lymphocytes % 22.4 % (10-50); Mean Corpuscular HGB Conc 32.5 g/dL (31.8-35.4); Mean Corpuscular Volume 92.2 fl (80-94); Mean Platelet Volume 7.9 fl (7.4-10.4); Monocytes # 0.4 K/mm3 (0.1-1.0); Monocytes % 5.1 % (1.7-9.3); Neutrophils # 5.4 K/mm3 (1.8-7.8); Neutrophils % 67.7 % (37.0-80.0); Platelet Count 206 K/mm3 (142-424); Red Blood Count 4.02 M/mm3 (4.60-6.20); Red Cell Distribution Width 14.5 % (11.5-17.5)
[2018-03-09 14:11] LABS: Albumin Level 3.4 gm/dL (3.4-5.0); Anion Gap 15.9 mEq/L (5-15); Blood Urea Nitrogen 67 mg/dL (7-18); Calcium 8.8 mg/dL (8.5-10.1); Carbon Dioxide 27 mmol/L (21.0-32.0); Chloride 101 mmol/L (98-107); Creatinine,Serum 2.69 mg/dL (0.70-1.30); Estimated Glomerular Filt Rate 23 ml/min (>60); GFR (African American) 28 ML/MIN (>60); Glucose 228 mg/dL (74-106); Phosphorous 4.5 mg/dL (2.4-4.9); Potassium 3.9 mmoL/L (3.5-5.1); Sodium 140 mmol/L (136-145)
== END ==
PROVIDERS: Visit Provider Internal Medicine Nephrology
DX: N18.4 Chronic kidney disease, stage 4 (severe) (principal)
CPT/HCPCS: 36415; 80069; 85025

== ENCOUNTER → 2018-03-12 15:17 | Outpatient (POV) | payer MEDICARE, SELFPAY | PROVIDERS: Visit Provider Internal Medicine Nephrology | DX: Z00.00 Encounter for general adult medical examination without abnormal findings (principal) ==

== ENCOUNTER → 2018-04-13 10:04 | Outpatient (POV) | payer MEDICARE, SELFPAY | PROVIDERS: Visit Provider Internal Medicine | DX: Z00.00 Encounter for general adult medical examination without abnormal findings (principal) ==

== ENCOUNTER → 2018-04-26 12:46 | Outpatient (CLI) | payer MEDICARE, SELFPAY ==
--- NOTE | 2018-04-26 12:50 | CT_ITS ---
CT lung screening EXAM: CT LUNG LOW DOSE WO CONTRAST HISTORY: 40 pack-year smoking history asymptomatic for lung cancer ITS.REASON: HX TOBACCO USE ORDERING PHYSICIAN: Sravan Coleman MD PATIENT AGE: 77 years COMPARISON: None TECHNIQUE: The exam was performed on a GE Light Speed [address] scanner using 2.90 mGy CTDI. A low dose helical CT CHEST was performed on a multi-detector scanner. All CT scans at the facility use one or more dose reduction, viz: automated exposure control, ma/kV adjustment per patient size (including targeted exams where dose is matched to indication, i.e. head), or iterative reconstruction technique. The LDCT was performed in a facility that meets the criteria for the screening program. Data regarding this exam was submitted to ACR which is an approved registry. The order for this exam indicates that it came as a result of a lung cancer screening counseling shard decision-making visit that included all the elements required of such a visit including smoking cessation. The radiologist interpreting this exam meets the [facility] criteria for the LDCT lung cancer screening program. The exam is reported using the Lung-RADS classification scale and reported to the ACR registry. NOTE: This study was performed for the specific purposes of lung cancer screening and is not an alternative to diagnostic chest CT. RADIATION DOSE: CTDI vol(CT dose Index-volume) = 2.90mG DLP (Dose Length Product) = 127.94 mGcm FINDINGS: There is hyperinflation with attenuation of the peripheral pulmonary vessels and bronchial thickening consistent with obstructive chronic bronchitis. There is an 8 mm subpleural nodule in the left upper lobe posteriorly axial image #29. 7 mm noncalcified nodule left lower lobe axial image #88. Mild scarring in the lung apices with a few subpleural nodular opacities 4 mm or less Extensive coronary artery calcification is noted. There are multiple old right rib fractures of the fifth through eighth ribs. IMPRESSION: 1. Lung RADS Category: 3, probably benign, 8 mm nodule left upper lobe and 7 mm nodule left lower lobe. Suggest 6 month follow-up 2. Other findings: COPD, coronary artery disease RECOMMENDATIONS: 6 month LDCT follow-up
== END ==
PROVIDERS: PCP Nurse Practitioner; Visit Provider Internal Medicine
DX: Z12.2 Encounter for screening for malignant neoplasm of respiratory organs (principal); Z87.891 Personal history of nicotine dependence

== ENCOUNTER → 2018-05-18 12:34 | Outpatient (CLI) | payer MEDICARE, SELFPAY | PROVIDERS: PCP Nurse Practitioner; Visit Provider Internal Medicine Cardiovascular Disease | DX: R00.1 Bradycardia, unspecified (principal) | CPT/HCPCS: 93225 ==

== ENCOUNTER → 2018-05-31 08:44 | Outpatient (CLI) | payer MEDICARE, SELFPAY ==
--- NOTE | 2018-05-31 08:48 | CA_ITS ---
PROCEDURE: 2-D M-mode and color Doppler study INDICATIONS FOR THE TEST: Chest pain COPD Heart Murmur Tobacco Smoking Palpitations Fatigue+ Syncope Edema Hypertension+Diabetes Mellitus+ Rheumatic Fever SOB+NICHOLS Obesity Hyperlipidemia+ Family History HD Additional History CAD, bradycardia, RBBB, dizziness, CHF PATIENT INFORMATION HEIGHT: 75 WEIGHT: 218 GENDER: M B/P: 130/70 2-D/M-MODE INTERPRETATION: 2-D MEASUREMENTS OBSERVED VALUES IN CMS Right Ventricular Dimension (RVDd) 2.1 Interventricular Septum (Thickness)(IVsd) 1.0 Left Ventricular Internal Dimensions(LVIDd) 5.0 Left Ventricular Posterior Wall (Thickness)(LVPWd) 1.0 Aortic Root 3.4 Aortic Cusp Separation 2.1 Left Atrial Dimensions (LAD) 4.6 2D 1. Left atrium is moderately enlarged, left ventricle is normal size, mild concentric left ventricular hypertrophy, visually estimated ejection fraction approximately 35%, there is marked hypokinesis involving the inferolateral and posterolateral wall. 2. The right atrium and right ventricle are normal size and contractility. 3. The aortic valve is thickened and calcified 4. The mitral and tricuspid valve leaflets are minimally thickened. 5. The pulmonic valve is poorly present. 6. No significant pericardial effusion noted. DOPPLER INTERROGATION: 1. The maximum aortic out flow velocity -2.1 m/s, resulting in a mean gradient across valve of 10 mmHg, represents mild aortic stenosis, there is mild aortic insufficiency. 2. The mitral inflow velocity within normal range, there is no mitral stenosis, there is mild mitral regurgitation. Grade 1 diastolic dysfunction seen with tissue Doppler evidence of raised left atrial pressure. 3. Mild tricuspid regurgitation, tricuspid regurgitation jet velocity is inadequate for calculation of the right ventricular systolic pressure. CONCLUSION: 1. Moderately enlarged left atrium, normal left ventricular size, mild concentric left ventricular hypertrophy, visually estimated ejection fraction 35% with multiple segmental wall motion abnormality described above, grade 1 diastolic dysfunction seen with tissue Doppler evidence of raised left atrial pressure. 2. Thickened and calcified aortic valve without Doppler evidence of mild aortic stenosis and mild aortic insufficiency. 3. Mild mitral and tricuspid regurgitation 4. No significant pericardial effusion noted.
== END ==
PROVIDERS: PCP Nurse Practitioner; Visit Provider Internal Medicine
DX: I45.2 Bifascicular block (principal)
CPT/HCPCS: 93306

== ENCOUNTER → 2018-07-09 10:44 | Outpatient (CLI) | payer MEDICARE, SELFPAY ==
[2018-07-09 11:02] LABS: Basophils # 0.1 K/mm3 (0-0.2); Basophils % 0.9 % (0.1-2.0); Eosinophils # 0.5 K/mm3 (0.0-0.4); Eosinophils % 6.2 % (0.1-12.0); Hematocrit 38.1 % (42.0-52.0); Lymphocytes # 1.9 K/mm3 (0.7-4.5); Lymphocytes % 24.2 % (10-50); Mean Corpuscular HGB Conc 34.3 g/dL (31.8-35.4); Mean Corpuscular Hemoglobin 31.5 pg (27.0-31.2); Mean Corpuscular Volume 91.8 fl (80-94); Mean Platelet Volume 8.4 fl (7.4-10.4); Monocytes # 0.4 K/mm3 (0.1-1.0); Monocytes % 5.5 % (1.7-9.3); Neutrophils # 4.9 K/mm3 (1.8-7.8); Neutrophils % 63.3 % (37.0-80.0); Platelet Count 198 K/mm3 (142-424); Red Blood Count 4.14 M/mm3 (4.60-6.20); Red Cell Distribution Width 14.3 % (11.5-17.5); White Blood Count 7.7 K/mm3 (4.8-10.8)
[2018-07-09 11:45] LABS: Albumin Level 3.5 gm/dL (3.4-5.0); Anion Gap 15.2 mEq/L (5-15); Blood Urea Nitrogen 55 mg/dL (7-18); Calcium 8.7 mg/dL (8.5-10.1); Carbon Dioxide 28 mmol/L (21.0-32.0); Chloride 99 mmol/L (98-107); Creatinine,Serum 2.56 mg/dL (0.70-1.30); Estimated Glomerular Filt Rate 24 ml/min (>60); GFR (African American) 29 ML/MIN (>60); Glucose 204 mg/dL (74-106); Phosphorous 4.4 mg/dL (2.4-4.9); Potassium 4.2 mmoL/L (3.5-5.1); Sodium 138 mmol/L (136-145)
[2018-07-10 07:02] LABS: Vitamin D 25 Hydroxy 39.7 ng/mL (30.0-100.0)
[2018-07-10 16:29] LABS: Calcium, Ionized 5.1 mg/dL (4.5-5.6); Parathyroid Hormone Intact 68 pg/mL (15-65)
== END ==
PROVIDERS: Visit Provider Internal Medicine Nephrology
DX: N18.4 Chronic kidney disease, stage 4 (severe) (principal)
CPT/HCPCS: 36415; 80069; 82330; 82652; 83970; 85025

== ENCOUNTER → 2018-07-23 14:33 | Outpatient (POV) | payer MEDICARE, SELFPAY | PROVIDERS: Visit Provider Internal Medicine Nephrology | DX: Z00.00 Encounter for general adult medical examination without abnormal findings (principal) ==

== ENCOUNTER 2018-08-23 16:13 | Observation (INO) | payer MEDICARE, SELFPAY ==
[2018-08-23] VITALS (7 sets, daily range): BP systolic 140–160; BP diastolic 56–84; PULSE 58–74; RESP 16–20; TEMP 36.6–37.6; O2SAT 95–99; BMI 27.5; BMI 27.8
--- NOTE | 2018-08-23 16:49 | HMH.EDCP ---
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 The time I documented below is in addition to time spent performing reported procedures but includes the following listed in this critical care notation. Medical Decision Making - Medical Records Medical records reviewed: Yes: I reviewed the patient's medical records. - Sunil Inquiry Pt receiving controlled substance: No Sunil was queried for this patient: No Vital Signs: 08/23/18 16:18 08/23/18 17:17 08/23/18 17:23 Temperature 99.7 F H Temperature Source Oral Pulse Rate [Right] 72 72 74 Respiratory Rate 20 20 20 Blood Pressure [Right Arm] 151/84 H 151/84 H 140/56 L Blood Pressure Mean [Right Arm] 106 106 84 Blood Pressure Source [Right Arm] Automatic Cuff Automatic Cuff Automatic Cuff Blood Pressure Position [Right Arm] Sitting Sitting Sitting 02 Sat by Pulse Oximetry 97 97 95 Oxygen Delivery Method Room Air Room Air Room Air Oxygen Flow Rate (LPM) 08/23/18 17:30 Temperature Temperature Source Pulse Rate [Right] 68 Respiratory Rate 16 Blood Pressure [Right Arm] 147/65 H Blood Pressure Mean [Right Arm] 92 Blood Pressure Source [Right Arm] Automatic Cuff Blood Pressure Position [Right Arm] Supine 02 Sat by Pulse Oximetry 96 Oxygen Delivery Method Nasal Cannula Oxygen Flow Rate (LPM) 2 - Lab Data Lab results reviewed: Yes: I reviewed the patient's lab results. Lab Results 08/23/18 16:50: WBC 8.4, RBC 3.89 L, Hgb 12.3 L, Hct 34.5 L, MCV 88.5, MCH 31.5 H, MCHC 35.5 H, RDW 13.9, Plt Count 256, MPV 7.2 L, Neut % (Auto) 70.4, Lymph % (Auto) 21.5, [place] % (Auto) 5.4, Eos % (Auto) 2.2, Baso % (Auto) 0.6, Neut # (Auto) 5.9, Lymph # (Auto) 1.8, [place] # (Auto) 0.5, Eos # (Auto) 0.2, Baso # (Auto) 0.1 08/23/18 16:50: Sodium 141, Potassium 4.0, Chloride 104, Carbon Dioxide 24, Anion Gap 17.0 H, BUN 51 H, Creatinine 2.57 H, Estimated Creat Clear 33, Estimated GFR 24 L, Est GFR ( Amer) 29 L, Glucose 236 H, Calcium 8.6, Magnesium 2.0, Total Bilirubin 0.4, AST 14 L, ALT 22, Alkaline Phosphatase 103, Troponin I < 0.02, Total Protein 7.1, Albumin 3.2 L, Globulin 3.9 H, Albumin/Globulin Ratio 0.8 L Result diagrams: 08/23/18 16:50 08/23/18 16:50 Orders (Tests/Meds): ED MEDICATIONS Discontinued Medications Generic Name Dose Route Start Last Admin Trade Name Freq PRN Reason Stop Dose Admin Nitroglycerin 1 gm 08/23/18 16:49 08/23/18 17:19 Nitroglycerin 1 Inch Oint Udp TD 08/23/18 16:50 1 gm ONCE ONE Administration ORDERS Category Date Time Status ECG Request by /Snehal Stat Y 08/23/18 16:53 Stop Req - Physician Consults Physician Consulted: veronica Reason -: Pt condition Comment/Response: rec admission Additional Consult: Yamileth Reason -: Pt condition, Cardiology Eval/Care Comment/Response: obs, consult cards - YUSUF Score for Non-Stemi Age of Patient: 70-79 years old Heart Rate: 70-89 bpm Systolic Blood Pressure: 140-159 mmHg Serum Creatinine: 2.00-3.99 mg/dl CHF [place] Class: I-No CHF Other Risk Factors: ST Segment Deviation Non-Stemi Risk Score: 157 Chest Pain HPI - General Chief Complaint: Chest Pain Stated Complaint: chest pain Time Seen by Provider: 08/23/18 17:00 Mode of Arrival: Ambulatory Source of Information: Patient, Spouse Limitations: No Limitations Description of Symptoms (Recalled from ER Triage Doc. by RN): intermittent chest pain beginn
--- NOTE | 2018-08-23 16:50 | XR_ITS ---
XR chest portable HISTORY: ITS.REASON: chest pain ORDERING PHYSICIAN: Dawson Medrano MD PATIENT AGE: 77 years COMPARISON: 06/01/2018 FINDINGS: Cardiomegaly without failure. Bipolar pacer is present from left subclavian approach. There are multiple old right-sided rib fractures. Lungs are clear. IMPRESSION: Old right-sided rib fractures with cardiomegaly, no acute finding
--- NOTE | 2018-08-23 16:52 | ED_ITS ---
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 The time I documented below is in addition to time spent performing reported procedures but includes the following listed in this critical care notation. Medical Decision Making - Medical Records Medical records reviewed: Yes: I reviewed the patient's medical records. - Sunil Inquiry Pt receiving controlled substance: No Sunil was queried for this patient: No Vital Signs: 08/23/18 16:18 08/23/18 17:17 08/23/18 17:23 Temperature 99.7 F H Temperature Source Oral Pulse Rate [Right] 72 72 74 Respiratory Rate 20 20 20 Blood Pressure [Right Arm] 151/84 H 151/84 H 140/56 L Blood Pressure Mean [Right Arm] 106 106 84 Blood Pressure Source [Right Arm] Automatic Cuff Automatic Cuff Automatic Cuff Blood Pressure Position [Right Arm] Sitting Sitting Sitting 02 Sat by Pulse Oximetry 97 97 95 Oxygen Delivery Method Room Air Room Air Room Air Oxygen Flow Rate (LPM) 08/23/18 17:30 Temperature Temperature Source Pulse Rate [Right] 68 Respiratory Rate 16 Blood Pressure [Right Arm] 147/65 H Blood Pressure Mean [Right Arm] 92 Blood Pressure Source [Right Arm] Automatic Cuff Blood Pressure Position [Right Arm] Supine 02 Sat by Pulse Oximetry 96 Oxygen Delivery Method Nasal Cannula Oxygen Flow Rate (LPM) 2 - Lab Data Lab results reviewed: Yes: I reviewed the patient's lab results. Lab Results 08/23/18 16:50: WBC 8.4, RBC 3.89 L, Hgb 12.3 L, Hct 34.5 L, MCV 88.5, MCH 31.5 H, MCHC 35.5 H, RDW 13.9, Plt Count 256, MPV 7.2 L, Neut % (Auto) 70.4, Lymph % (Auto) 21.5, [place] % (Auto) 5.4, Eos % (Auto) 2.2, Baso % (Auto) 0.6, Neut # (Auto) 5.9, Lymph # (Auto) 1.8, [place] # (Auto) 0.5, Eos # (Auto) 0.2, Baso # (Auto) 0.1 08/23/18 16:50: Sodium 141, Potassium 4.0, Chloride 104, Carbon Dioxide 24, Anion Gap 17.0 H, BUN 51 H, Creatinine 2.57 H, Estimated Creat Clear 33, Estimated GFR 24 L, Est GFR ( Amer) 29 L, Glucose 236 H, Calcium 8.6, Magnesium 2.0, Total Bilirubin 0.4, AST 14 L, ALT 22, Alkaline Phosphatase 103, Troponin I < 0.02, Total Protein 7.1, Albumin 3.2 L, Globulin 3.9 H, Albumin/Globulin Ratio 0.8 L Result diagrams: 08/23/18 16:50 08/23/18 16:50 Orders (Tests/Meds): ED MEDICATIONS Discontinued Medications Generic Name Dose Route Start Last Admin Trade Name Freq PRN Reason Stop Dose Admin Nitroglycerin 1 gm 08/23/18 16:49 08/23/18 17:19 Nitroglycerin 1 Inch Oint Udp TD 08/23/18 16:50 1 gm ONCE ONE Administration ORDERS
[2018-08-23 17:10] LABS: Basophils # 0.1 K/mm3 (0-0.2); Basophils % 0.6 % (0.1-2.0); Eosinophils # 0.2 K/mm3 (0.0-0.4); Eosinophils % 2.2 % (0.1-12.0); Hematocrit 34.5 % (42.0-52.0); Hemoglobin 12.3 g/dL (14.1-18.0); Lymphocytes # 1.8 K/mm3 (0.7-4.5); Lymphocytes % 21.5 % (10-50); Mean Corpuscular HGB Conc 35.5 g/dL (31.8-35.4); Mean Corpuscular Hemoglobin 31.5 pg (27.0-31.2); Mean Corpuscular Volume 88.5 fl (80-94); Mean Platelet Volume 7.2 fl (7.4-10.4); Monocytes # 0.5 K/mm3 (0.1-1.0); Monocytes % 5.4 % (1.7-9.3); Neutrophils # 5.9 K/mm3 (1.8-7.8); Neutrophils % 70.4 % (37.0-80.0); Platelet Count 256 K/mm3 (142-424); Red Blood Count 3.89 M/mm3 (4.60-6.20); Red Cell Distribution Width 13.9 % (11.5-17.5); White Blood Count 8.4 K/mm3 (4.8-10.8)
[2018-08-23 18:16] LABS: Alanine Aminotransferase 22 U/L (12-78); Albumin Level 3.2 gm/dL (3.4-5.0); Albumin/Globulin Ratio 0.8 (1.1-1.8); Alkaline Phosphatase 103 U/L (46-116); Aspartate Amino Transferase 14 U/L (15-37); Bilirubin,Total 0.4 mg/dL (0.2-1.0); Blood Urea Nitrogen 51 mg/dL (7-18); Calcium 8.6 mg/dL (8.5-10.1); Carbon Dioxide 24 mmol/L (21.0-32.0); Chloride 104 mmol/L (98-107); Creatinine Clearance Estimated 33 mL/min (50-200); Creatinine,Serum 2.57 mg/dL (0.70-1.30); Estimated Glomerular Filt Rate 24 ml/min (>60); GFR (African American) 29 ML/MIN (>60); Globulin 3.9 gm/dl (1.3-3.2); Glucose 236 mg/dL (74-106); Sodium 141 mmol/L (136-145); Total Protein,Serum 7.1 gm/dL (6.4-8.2); Troponin I < 0.02 ng/ml (0.00-0.06)
--- NOTE | 2018-08-23 18:45 | PC.NURSE ---
call placed to dr martin
--- NOTE | 2018-08-23 19:09 | PC.NURSE ---
dr monet spoke to dr martin
--- NOTE | 2018-08-23 19:13 | PC.NURSE ---
DR POND SPEAKING WITH DR RABAGO AT THIS TIME
--- NOTE | 2018-08-23 20:05 | PC.NURSE ---
PT ARRIVED TO FLOOR VIA WHEELCHAIR FROM ED
[2018-08-23 21:23] LABS: POC Glucose,Bedside 184 (70-110)
[2018-08-23 23:05] LABS: Troponin I 0.03 ng/ml (0.00-0.06)
[2018-08-24] VITALS (7 sets, daily range): BP systolic 123–161; BP diastolic 57–90; PULSE 56–72; RESP 15–20; TEMP 36.4–36.8; O2SAT 97–99; BMI 27.8; BMI 27.7
--- NOTE | 2018-08-24 02:45 | PC.NURSE ---
He has been awake t/o the night. He denies chest pain. He has nitro paste on at this time. Denies SOA and weakness. Has ambulated independently with steady gait.
[2018-08-24 05:14] LABS: Basophils # 0.1 K/mm3 (0-0.2); Basophils % 0.7 % (0.1-2.0); Eosinophils # 0.4 K/mm3 (0.0-0.4); Eosinophils % 4.5 % (0.1-12.0); Hematocrit 38.3 % (42.0-52.0); Hemoglobin 13.4 g/dL (14.1-18.0); Lymphocytes # 2.2 K/mm3 (0.7-4.5); Lymphocytes % 23.4 % (10-50); Mean Corpuscular HGB Conc 35.1 g/dL (31.8-35.4); Mean Corpuscular Volume 88.2 fl (80-94); Mean Platelet Volume 8.3 fl (7.4-10.4); Monocytes # 0.5 K/mm3 (0.1-1.0); Monocytes % 5.7 % (1.7-9.3); Neutrophils # 6.1 K/mm3 (1.8-7.8); Neutrophils % 65.7 % (37.0-80.0); Platelet Count 254 K/mm3 (142-424); Red Blood Count 4.34 M/mm3 (4.60-6.20); Red Cell Distribution Width 13.9 % (11.5-17.5); White Blood Count 9.2 K/mm3 (4.8-10.8)
[2018-08-24 05:21] LABS: POC Glucose,Bedside 154 (70-110)
[2018-08-24 05:22] LABS: Anion Gap 15.5 mEq/L (5-15); Blood Urea Nitrogen 47 mg/dL (7-18); Calcium 8.7 mg/dL (8.5-10.1); Carbon Dioxide 26 mmol/L (21.0-32.0); Chloride 104 mmol/L (98-107); Creatinine Clearance Estimated 37 mL/min (50-200); Creatinine,Serum 2.33 mg/dL (0.70-1.30); Estimated Glomerular Filt Rate 27 ml/min (>60); GFR (African American) 33 ML/MIN (>60); Glucose 158 mg/dL (74-106); Potassium 3.5 mmoL/L (3.5-5.1); Sodium 142 mmol/L (136-145)
[2018-08-24 05:32] LABS: Troponin I 0.04 ng/ml (0.00-0.06)
--- NOTE | 2018-08-24 07:14 | CA_ITS ---
PROCEDURE: 2-D M-mode and color Doppler study INDICATIONS FOR THE TEST: Chest pain COPD Heart Murmur Tobacco SmokingEX Palpitations Fatigue Syncope Edema HypertensionXDiabetes MellitusX Rheumatic Fever SOBXDOE Obesity Hyperlipidemia Family History HD Additional History CM,ABN EKG EF 35% 05/29 PATIENT INFORMATION HEIGHT: 75 WEIGHT:223 GENDER: Male B/P:147/65 2-D/M-MODE INTERPRETATION: 2-D MEASUREMENTS OBSERVED VALUES IN CMS Right Ventricular Dimension (RVDd) 2.5 Interventricular Septum (Thickness)(IVsd) 1.1 Left Ventricular Internal Dimensions(LVIDd) 6.9 Left Ventricular Posterior Wall (Thickness)(LVPWd) 1.2 Aortic Root 3.3 Aortic Cusp Separation 1.5 Left Atrial Dimensions (LAD) 3.6 2D 1. Technically difficult study because of the patient's factor and poor acoustic windows 2. Left atrium is mildly enlarged, left ventricle is mildly dilated, mild concentric left ventricular hypertrophy, visually estimated ejection fraction approximately 35%, there is moderate hypokinesis involving the inferior, distal septum and apical wall. 3. The right atrium and right ventricle are normal size and contractility. There is pacemaker lead seen right ventricle. 4. The aortic valve is thickened and calcified leaflet continue to display mobility. 5. Mitral and tricuspid valve leaflets are minimally thickened. 6. The pulmonic valve is poorly visualized. 7. No significant pericardial effusion noted. DOPPLER INTERROGATION: The maximum aortic out flow velocity recorded study 2.4 m/s, resulting in a mean gradient across valve of 13 mmHg, represents mild aortic stenosis, there is trace aortic insufficiency. Mild mitral and tricuspid regurgitation, tricuspid regurgitation jet velocity is inadequate for calculation of the right ventricular systolic pressure, diastolic parameters are inconclusive. CONCLUSION: 1. Technically difficult study because of the patient's factors and poor acoustic windows 2. Mildly enlarged left atrium, mildly dilated left ventricle, mild concentric left ventricular hypertrophy, visually estimated ejection fraction of 35% with segmental wall motion abnormality described above, diastolic parameters are inconclusive. 3. Thickened and calcified aortic valve with mean gradient across valve of 13 mmHg represents mild aortic stenosis, there is trace aortic insufficiency. 4. Mild mitral and tricuspid regurgitation 5. No significant pericardial effusion noted.
--- NOTE | 2018-08-24 07:25 | HMH.HP ---
*Admission Date: 08/23/18 *Chief complaint: Chest pain *History of present illness: 77-year-old male with history of coronary artery disease presented to the emergency department after he began experiencing left upper chest/pectoral pain that radiated down into his left arm all the way to his middle and index finger as well as thumb. Patient would use nitroglycerin to relieve his pain which he states would take about 2 to 3 minutes but the nitroglycerin would stop the chest discomfort. However with any subsequent light activity such as walking from his recliner to his bathroom at home he would have recurring chest pain. Decision was made to admit the patient for rule out of [place] and cardiology evaluation this morning. Patient ended up taking about 5 nitroglycerin for episodes of chest pain and ultimately decided to come to the emergency department. Patient had Nitropaste applied in the emergency department and reports that overnight he has not had any further episodes of chest pain although reports some upset stomach. Patient's past medical history is significant for LV dysfunction with ejection fraction of 35% on echocardiogram in May 2018, patient is status post pacemaker implantation earlier this year. Last cardiac catheterization was June 2017. [facility] History I have reviewed the patient's past medical history: Yes Medical History: Reports:: Congestive Heart Failure, Coronary Artery Disease, Diabetes Mellitus Type 2, Hyperlipidemia, Hypertension, Internal Pacemaker, Renal Disease, Renal Insufficiency Denies:: Cancer, Diabetes Mellitus Type 1, MRSA, Seizures *Have you ever received a pneumonia vaccine?: No *Have you received a flu vaccine this season?: No Other Medical History: Reports: Other. Denies: Blood Transfusion Reaction Other Surgeries: Yes: Hernia Repair, Pacemaker, Other Amputation: Yes (traumatic tip right index finger) Fractures: No - *Social History Educational Level: Attended High School Smoking Status: Former smoker Tobacco Type: cigarettes # Packs/Day (cigarettes): 4 #Yrs smoked (if former smoker): 50 Smoking End Date: 2010 Alcohol Intake: never Alcohol Intake Frequency:: other Substance Use Type: denies use *Occupational Status:: retired, disabled Housing: house Household Members: significant other *Travel in the last 8 weeks: None - Psychiatric History Expresses thoughts of harming self/others: None Suicide Plan Description: No Plan Family Hx:: Coronary Artery Disease, Heart Attack Review of Systems - Review of Systems Review of systems:: pertinent systems reviewed and negative unless documented below - Constitutional Denies body ache(s), Denies chills, Denies daytime sleepiness - *Cardiovascular Reports chest pain with activity, Reports shortness of breath with activity, Denies chest pain at rest, Denies excessive sweating, Denies irregular heart rhythm, Denies lightheadedness - *Respiratory Reports shortness of breath with activity, Denies chest congestion, Denies cough, Denies shortness of breath, Denies coughing up blood - *Gastrointestinal Comments: Dyspepsia - *Neurologic Denies abnormal movements, Denies behavioral changes, Denies dizziness, Denies localized weakness, Denies numbness Meds Home Medications Medication Instructions Recorded Confirmed Type calcium carbonate 600 mg calcium 600 mg PO DAILY tab 04/26/17 08/23/18 History (1,500 mg) tablet cholecalciferol (vitamin D3) 5,000 5,000 unit PO DAILY 04/26/17 08/23/18 History unit capsule diphenhydramine 25 mg capsule 50 mg PO Q6H cap 04/26/17 08/23/18 History diphenoxylate-atropine 2.5 2 tab PO Q6H tab 04/26/17 08/23/18 History mg-0.025 mg tablet fluticasone propionate 50 50 mcg INTRANASAL DAILY 04/26/17 08/23/18 History mcg/actuation nasal spray,suspension glucosamine HCl 1,500 mg tablet 1,500 mg PO DAILY 04/26/17 08/23/18 History insulin detemir (U-100) 100 60 unit SUB-Q HS ml 04/26/17 08/23/18 History unit/
--- NOTE | 2018-08-24 07:28 | P.HP_ITS ---
*Admission Date: 08/23/18 *Chief complaint: Chest pain *History of present illness: 77-year-old male with history of coronary artery disease presented to the emergency department after he began experiencing left upper chest/pectoral pain that radiated down into his left arm all the way to his middle and index finger as well as thumb. Patient would use nitroglycerin to relieve his pain which he states would take about 2 to 3 minutes but the nitroglycerin would stop the chest discomfort. However with any subsequent light activity such as walking from his recliner to his bathroom at home he would have recurring chest pain. Decision was made to admit the patient for rule out of MD and cardiology evalua tion this morning. Patient ended up taking about 5 nitroglycerin for episodes of chest pain and ultimately decided to come to the emergency department. Patient had Nitropaste applied in the emergency department and reports that overnight he has not had any further episodes of chest pain although reports some upset stomach. Patient's past medical history is significant for LV dysfunction with ejection fraction of 35% on echocardiogram in May 2018, patient is status post pacemaker implantation earlier this year. Last cardiac catheterization was June 2017. [facility] History I have reviewed the patient's past medical history: Yes Medical History: Reports:: Congestive Heart Failure, Coronary Artery Disease, Diabetes Mellitus Type 2, Hyperlipidemia, Hypertension, Internal Pacemaker, Renal Disease, Renal Insufficiency Denies:: Cancer, Diabetes Mellitus Type 1, MRSA, Seizures *Have you ever received a pneumonia vaccine?: No *Have you received a flu vaccine this season?: No Other Medical History: Reports: Other. Denies: Blood Transfusion Reaction Other Surgeries: Yes: Hernia Repair, Pacemaker, Other Amputation: Yes (traumatic tip right index finger) Fractures: No - *Social History Educational Level: Attended High School Smoking Status: Former smoker Tobacco Type: cigarettes # Packs/Day (cigarettes): 4 #Yrs smoked (if former smoker): 50 Smoking End Date: 2010 Alcohol Intake: never Alcohol Intake Frequency:: other Substance Use Type: denies use *Occupational Status:: retired, disabled Housing: house Household Members: significant other *Travel in the last 8 weeks: None - Psychiatric History Expresses thoughts of harming self/others: None Suicide Plan Description: No Plan Family Hx:: Coronary Artery Disease, Heart Attack Review of Systems - Review of Systems Review of systems:: pertinent systems reviewed and negative unless documented below - Constitutional Denies body ache(s), Denies chills, Denies daytime sleepiness - *Cardiovascular Reports chest pain with activity, Reports shortness of breath with activity, Denies chest pain at rest, Denies excessive sweating, Denies irregular heart rhythm, Denies lightheadedness - *Respiratory Reports shortness of breath with activity, Denies chest congestion, Denies cough, Denies shortness of breath, Denies coughing up blood - *Gastrointestinal Comments: Dyspepsia - *Neurologic Denies abnormal movements, Denies behavioral changes, Denies dizziness, Denies localized weakness, Denies numbness Meds Home Medications Medication Instructions Recorded Confirmed Type calcium carbonate 600 mg calcium 600 mg PO DAILY tab 04/26/17 08/23/18 History (1,500 mg) tablet cholecalciferol (vitamin D3) 5,000 5,000 unit PO DAILY 04/26/17 08/23/18 History unit capsule diphenhydramine 25 mg
--- NOTE | 2018-08-24 07:32 | HMH.CNCARD ---
History of Present Illness Consult date: 08/24/18 Requesting physician: John Da Silva Consult reason: chest pain Chief complaint: chest pain Additional Medical History:: 1. CAD A. SAMEERA to LAD, Cx, First diagonal on two separate occasions in 11/2016. B. Ischemic CM, EF 40% at time of cath, 11/2016 with LVEDP of 35 mm Hg C. Echo, 01/2017, Moderate LAE, mild dilated LV, mild conc LVH, EF 40% with multiple seg wall abnormalities. Mild AR, MR, [facility], 06/2017, ANGIOGRAPHIC RESULTS: 1. The left main artery normal 2. The left anterior descending artery has a stent in the proximal to mid segment which is widely patent free of in-stent restenosis with excellent distal and proximal transitioning 3. The circumflex artery is nondominant and has stents in the proximal segment. The stent is widely patent with excellent proximal distal transitioning. The ramus intermedius is a moderate size vessel and has mid vessel 30% concentric stenosis 4. The right coronary artery is a large dominant vessel and has an ostial 20% additional 20% proximal and 30% concentric stenosis. Very distally the right coronary artery has a concentric 40-50% stenosis immediately proximal to the PDA and posterior lateral ventricular branch. Both distal branches are large and widely patent 5. The [facility] ventriculogram reveals moderate left ventricular dilatation ejection fraction 30% 6. The left ventricular end-diastolic pressure severely elevated at 40 mmHg 2. Rib fractures after fall, 03/2017 3. Hyperlipidemia 4. CKD, stage 4 with GFR 24 and Cr 2.57, 08/2018 5. DM 6. Cardiomyopathy A. Echo, 05/2018, 2D 1. Left atrium is moderately enlarged, left ventricle is normal size, mild concentric left ventricular hypertrophy, visually estimated ejection fraction approximately 35%, there is marked hypokinesis involving the inferolateral and posterolateral wall. 2. The right atrium and right ventricle are normal size and contractility. 3. The aortic valve is thickened and calcified 4. The mitral and tricuspid valve leaflets are minimally thickened. 5. The pulmonic valve is poorly present. 6. No significant pericardial effusion noted. DOPPLER INTERROGATION: 1. The maximum aortic out flow velocity 2.1 m/s, resulting in a mean gradient across valve of 10 mmHg, represents mild aortic stenosis, there is mild aortic insufficiency. 2. The mitral inflow velocity within normal range, there is no mitral stenosis, there is mild mitral regurgitation. Grade 1 diastolic dysfunction seen with tissue Doppler evidence of raised left atrial pressure. 3. Mild tricuspid regurgitation, tricuspid regurgitation jet velocity is inadequate for calculation of the right ventricular systolic pressure. CONCLUSION: 1. Moderately enlarged left atrium, normal left ventricular size, mild concentric left ventricular hypertrophy, visually estimated ejection fraction 35% with multiple segmental wall motion abnormality described above, grade 1 diastolic dysfunction seen with tissue Doppler evidence of raised left atrial pressure. 2. Thickened and calcified aortic valve without Doppler evidence of mild aortic stenosis and mild aortic insufficiency. 3. Mild mitral and tricuspid regurgitation 4. No significant pericardial effusion noted 7. [employer] Accolade Dual chamber pacemaker implanted, 06/2018. History of present illness: 77-year-old male with history of coronary artery disease presented to the emergency department after he began experiencing left upper chest/pectoral pain that radiated down into his left arm all the way to his middle and index finger as well as thumb. Patient would use nitroglycerin to relieve his pain which he states would take about 2 to 3 minutes but the nitroglycerin would stop the chest discomfort. However with any subsequent light activity such as walking from his recliner to his bathroom at home he would have recurring chest pain. Decision was made to admit the lolita
--- NOTE | 2018-08-24 07:32 | HMH.PHAVTE ---
[facility] Pharmacy VTE Monitoring - Patient Demographics Admission date: 08/23/18 Report Date: 08/24/18 Time: 07:32 Allergies/Adverse Reactions: Patient Allergies azithromycin Allergy (Mild, Verified 07/06/18 11:38) clindamycin Allergy (Mild, Verified 07/06/18 11:38) Penicillins Allergy (Mild, Verified 07/06/18 11:38) ticagrelor [From Brilinta] Allergy (Mild, Verified 07/06/18 11:38) mycins Allergy (Mild, Uncoded 07/06/18 11:38) Height: 1.91 m Weight: 101.151 kg Patient Problems: Current Active Problems (Updated 08/24/18 @ 07:32 by John Da Silva MD) Unstable angina pectoris (Acute) Chronic renal failure, stage 4 (severe) (Acute) Coronary artery disease (Acute) - VTE Risk Labs: VTE Related Lab Results Hgb 13.4 g/dL (14.1-18.0) L 08/24/18 05:00 Hct 38.3 % (42.0-52.0) L 08/24/18 05:00 Plt Count 254 K/mm3 (142-424) 08/24/18 05:00 BUN 47 mg/dL (7-18) H 08/24/18 05:00 Creatinine 2.33 mg/dL (0.70-1.30) H 08/24/18 05:00 Estimated Creat Clear 37 mL/min (50-200) 08/24/18 05:00 Was VTE Risk Assessment Performed: Yes VTE Score: 5 VTE Risk Level: Low Risk - Prophylaxis VTE Prophylaxis Ordered?: Yes Types of VTE Prophylaxis: TEDS Knee High Location of Applied Device: Bilateral Lower Extremeties - VTE Diagnosis Confirmed Treatment or plan recommended: Continue Current Treatment
[2018-08-24 10:53] LABS: POC Glucose,Bedside 192 (70-110)
--- NOTE | 2018-08-24 11:39 | HMH.PHAINT ---
MEDICATION RECONCILIATION COMPLETED ON PATIENT USING EXTERNAL FILL HISTORY FROM PHARMACY AND PHYSICIAN'S LIST. -[facility]
[2018-08-24 11:52] LABS: POC Glucose,Bedside 213 (70-110)
--- NOTE | 2018-08-24 16:08 | HMH.DCSUM ---
General - General Admission date:: 08/23/18 Discharge date: 08/24/18 HPI HPI: 77-year-old male with history of coronary artery disease presented to the emergency department after he began experiencing left upper chest/pectoral pain that radiated down into his left arm all the way to his middle and index finger as well as thumb. Patient would use nitroglycerin to relieve his pain which he states would take about 2 to 3 minutes but the nitroglycerin would stop the chest discomfort. However with any subsequent light activity such as walking from his recliner to his bathroom at home he would have recurring chest pain. Decision was made to admit the patient for rule out of OR and cardiology evaluation this morning. Patient ended up taking about 5 nitroglycerin for episodes of chest pain and ultimately decided to come to the emergency department. Patient had Nitropaste applied in the emergency department and reports that overnight he has not had any further episodes of chest pain although reports some upset stomach. Patient's past medical history is significant for LV dysfunction with ejection fraction of 35% on echocardiogram in May 2018, patient is status post pacemaker implantation earlier this year. Last cardiac catheterization was June 2017. Hospital Course Hospital Course: Patient was admitted to second floor for additional monitoring and evaluation. Echocardiogram was performed and revealed no changes from previous exam in May. Troponins negative. EKG is a paced rhythm in the 70s with frequent PACs. Patient reports feeling better and ready to go home at this time. Recommendations of cardiology include increase of metoprolol to 100 mg daily, continue current doses of isosorbide, ranexa, and plavis, will F/U with Dr VARGAS in one week. Follow up with myself in one week as well. August 31 at 1pm. Objective Vital signs: Temp Pulse Resp BP Pulse Ox 97.9 F 63 17 139/76 99 08/24/18 15:50 08/24/18 15:50 08/24/18 15:50 08/24/18 15:50 08/24/18 15:50 no acute distress, average body habitus, chronically ill appearing - *Routine Respiratory Exam Present: CTA bilaterally. Absent: accessory muscle use - *Routine Cardiovascular Exam Present: murmur, irregular rhythm - *Routine Abdominal Exam Present: soft, normoactive bowel sounds - *Routine Extremities Exam Present: edema Comments: 1 + pedal edema - *Routine Skin Exam Present: intact, pallor - *Routine Neurological Exam Present: alert, oriented X3 - Routine Psychiatric Exam Present: normal affect Results Labs on day of discharge: Labs from last 24 hours 08/24/18 08/24/18 08/24/18 11:44 08:33 05:04 WBC RBC Hgb Hct MCV MCH MCHC RDW Plt Count MPV Neut % (Auto) Lymph % (Auto) [place] % (Auto) Eos % (Auto) Baso % (Auto) Neut # (Auto) Lymph # (Auto) [place] # (Auto) Eos # (Auto) Baso # (Auto) Sodium Potassium Chloride Carbon Dioxide Anion Gap BUN Creatinine Estimated Creat Clear Estimated GFR Est GFR ( Amer) Glucose POC Glucose 213 H 192 H 154 H Calcium Magnesium Total Bilirubin AST ALT Alkaline Phosphatase Troponin I Total Protein Albumin Globulin Albumin/Globulin Ratio 08/24/18 08/24/18 08/24/18 05:00 05:00 05:00 WBC 9.2 RBC 4.34 L Hgb 13.4 L Hct 38.3 L MCV 88.2 MCH 31.0 MCHC 35.1 RDW 13.9 Plt Count 254 MPV 8.3 Neut % (Auto) 65.7 Lymph % (Auto) 23.4 [place] % (Auto) 5.7 Eos % (Auto) 4.5 Baso % (Auto) 0.7 Neut # (Auto) 6.1 Lymph # (Auto) 2.2 [place] # (Auto) 0.5 Eos # (Auto) 0.4 Baso # (Auto) 0.1 Sodium 142 Potassium 3.5 Chloride 104 Carbon Dioxide 26 Anion Gap 15.5 H BUN 47 H Creatinine 2.33 H Estimated Creat Clear 37 Estimated GFR 27 L Est GFR ( Am
--- NOTE | 2018-08-24 16:14 | P.DS_ITS ---
General - General Admission date:: 08/23/18 Discharge date: 08/24/18 HPI HPI: 77-year-old male with history of coronary artery disease presented to the emergency department after he began experiencing left upper chest/pectoral pain that radiated down into his left arm all the way to his middle and index finger as well as thumb. Patient would use nitroglycerin to relieve his pain which he states would take about 2 to 3 minutes but the nitroglycerin would stop the chest discomfort. However with any subsequent light activity such as walking from his recliner to his bathroom at home he would have recurring chest pain. Decision was made to admit the patient for rule out of OR and cardiology evaluation this morning. Patient ended up taking about 5 nitroglycerin for episodes of chest pain and ultimately decided to come to the emergency departm ent. Patient had Nitropaste applied in the emergency department and reports that overnight he has not had any further episodes of chest pain although reports some upset stomach. Patient's past medical history is significant for LV dysfunction with ejection fraction of 35% on echocardiogram in May 2018, patient is status post pacemaker implantation earlier this year. Last cardiac catheterization was June 2017. Hospital Course Hospital Course: Patient was admitted to second floor for additional monitoring and evaluation. Echocardiogram was performed and revealed no changes from previous exam in May. Troponins negative. EKG is a paced rhythm in the 70s with frequent PACs. Patient reports feeling better and ready to go home at this time. Recommendations of cardiology include increase of metoprolol to 100 mg daily, continue current doses of isosorbide, ranexa, and plavis, will F/U with Dr VARGAS in one week. Follow up with myself in one week as well. August 31 at 1pm. Objective Vital signs: Temp Pulse Resp BP Pulse Ox 97.9 F 63 17 139/76 99 08/24/18 15:50 08/24/18 15:50 08/24/18 15:50 08/24/18 15:50 08/24/18 15:50 no acute distress, average body habitus, chronically ill appearing - *Routine Respiratory Exam Present: CTA bilaterally. Absent: accessory muscle use - *Routine Cardiovascular Exam Present: murmur, irregular rhythm - *Routine Abdominal Exam Present: soft, normoactive bowel sounds - *Routine Extremities Exam Present: edema Comments: 1 + pedal edema - *Routine Skin Exam Present: intact, pallor - *Routine Neurological Exam Present: alert, oriented X3 - Routine Psychiatric Exam Present: normal affect Results Labs on day of discharge: Labs from last 24 hours 08/24/18 08/24/18 08/24/18 11:44 08:33 05:04 WBC RBC Hgb Hct MCV MCH MCHC RDW Plt Count MPV Neut % (Auto) Lymph % (Auto) [place] % (Auto) Eos % (Auto) Baso % (Auto) Neut # (Auto) Lymph # (Auto) [place] # (Auto) Eos # (Auto) Baso # (Auto) Sodium Potassium Chloride Carbon Dioxide Anion Gap BUN Creatinine Estimated Creat Clear Estimated GFR Est GFR ( Amer) Glucose POC Glucose 213 H 192 H 154
== END 2018-08-24 17:15 | disposition home or self-care (01) ==
LOC: ER 19:22 → 2ND 19:27
PROVIDERS: Admitting Provider Family Medicine; Emergency Provider Emergency Medicine; PCP Nurse Practitioner; Visit Provider Family Medicine
DX: I20.0 Unstable angina (principal); I25.10 Atherosclerotic heart disease of native coronary artery without angina pectoris; I50.9 Heart failure, unspecified; E11.22 Type 2 diabetes mellitus with diabetic chronic kidney disease; I13.0 Hypertensive heart and chronic kidney disease with heart failure and stage 1 through stage 4 chronic kidney disease, or unspecified chronic kidney disease; N18.4 Chronic kidney disease, stage 4 (severe); I25.5 Ischemic cardiomyopathy; I49.3 Ventricular premature depolarization; I45.2 Bifascicular block; Z88.8 Allergy status to other drugs, medicaments and biological substances; Z95.5 Presence of coronary angioplasty implant and graft; Z79.02 Long term (current) use of antithrombotics/antiplatelets; Z95.0 Presence of cardiac pacemaker; Z79.4 Long term (current) use of insulin; Z79.899 Other long term (current) drug therapy; Z88.1 Allergy status to other antibiotic agents; Z88.0 Allergy status to penicillin; Z87.891 Personal history of nicotine dependence; Z82.49 Family history of ischemic heart disease and other diseases of the circulatory system
CPT/HCPCS: 36415; 71045; 80048; 80053; 82962; 83735; 84484; 85025; 93005; 93306; 99284; G0378

== ENCOUNTER → 2018-09-04 14:37 | Outpatient (POV) | payer MEDICARE, SELFPAY | PROVIDERS: Visit Provider Internal Medicine | DX: Z00.00 Encounter for general adult medical examination without abnormal findings (principal) ==

== ENCOUNTER → 2019-01-08 10:01 | Outpatient (CLI) | payer MEDICARE, SELFPAY ==
[2019-01-08 10:23] LABS: Basophils # 0.1 K/mm3 (0-0.2); Basophils % 0.8 % (0.1-2.0); Eosinophils # 0.4 K/mm3 (0.0-0.4); Eosinophils % 4.8 % (0.1-12.0); Hematocrit 38.7 % (42.0-52.0); Hemoglobin 12.5 g/dL (14.1-18.0); Lymphocytes # 2.1 K/mm3 (0.7-4.5); Lymphocytes % 24.3 % (10-50); Mean Corpuscular HGB Conc 32.3 g/dL (31.8-35.4); Mean Corpuscular Hemoglobin 29.2 pg (27.0-31.2); Mean Corpuscular Volume 90.6 fl (80-94); Mean Platelet Volume 8.3 fl (7.4-10.4); Monocytes # 0.4 K/mm3 (0.1-1.0); Neutrophils # 5.6 K/mm3 (1.8-7.8); Neutrophils % 65.2 % (37.0-80.0); Platelet Count 209 K/mm3 (142-424); Red Blood Count 4.28 M/mm3 (4.60-6.20); Red Cell Distribution Width 15.6 % (11.5-17.5); White Blood Count 8.6 K/mm3 (4.8-10.8)
[2019-01-08 10:53] LABS: Albumin Level 3.5 gm/dL (3.4-5.0); Blood Urea Nitrogen 71 mg/dL (7-18); Calcium 8.9 mg/dL (8.5-10.1); Carbon Dioxide 28 mmol/L (21.0-32.0); Chloride 98 mmol/L (98-107); Creatinine,Serum 2.58 mg/dL (0.70-1.30); Estimated Glomerular Filt Rate 24 ml/min (>60); GFR (African American) 29 ML/MIN (>60); Glucose 327 mg/dL (74-106); Phosphorous 4.4 mg/dL (2.4-4.9); Sodium 137 mmol/L (136-145)
[2019-01-08 19:59] LABS: Creatinine,Urine Random 103 mg/dL (20-320); Total Protein,Urine Random 24.2 mg/dL (0.0-11.9)
[2019-01-09 16:46] LABS: Parathyroid Hormone Intact 42 pg/mL (15-65); Vitamin D 25 Hydroxy 46.6 ng/mL (30.0-100.0)
== END ==
PROVIDERS: Visit Provider Internal Medicine Nephrology
DX: N18.4 Chronic kidney disease, stage 4 (severe) (principal)
CPT/HCPCS: 36415; 80069; 82570; 82652; 83970; 84155; 85025

== ENCOUNTER → 2019-01-09 13:56 | Outpatient (POV) | payer MEDICARE, SELFPAY | PROVIDERS: Visit Provider Internal Medicine Nephrology | DX: Z00.00 Encounter for general adult medical examination without abnormal findings (principal) ==

== ENCOUNTER → 2019-03-11 11:58 | Outpatient (CLI) | payer MEDICARE, SELFPAY ==
[2019-03-11 12:49] LABS: Anion Gap 15.8 mEq/L (5-15); Blood Urea Nitrogen 67 mg/dL (7-18); Calcium 8.8 mg/dL (8.5-10.1); Carbon Dioxide 28 mmol/L (21.0-32.0); Chloride 95 mmol/L (98-107); Creatinine,Serum 3.14 mg/dL (0.70-1.30); Estimated Glomerular Filt Rate 19 ml/min (>60); GFR (African American) 23 ML/MIN (>60); Glucose 320 mg/dL (74-106); Potassium 3.8 mmoL/L (3.5-5.1); Sodium 135 mmol/L (136-145)
== END ==
PROVIDERS: Visit Provider Urology
DX: R06.02 Shortness of breath (principal)
CPT/HCPCS: 36415; 80048; 83880

== ENCOUNTER → 2019-05-08 13:29 | Outpatient (POV) | payer MEDICARE, SELFPAY ==
[2019-05-08 17:10] LABS: Albumin Level 3.2 gm/dL (3.4-5.0); Anion Gap 16.1 mEq/L (5-15); Blood Urea Nitrogen 36 mg/dL (7-18); Calcium 8.3 mg/dL (8.5-10.1); Carbon Dioxide 26 mmol/L (21.0-32.0); Chloride 100 mmol/L (98-107); Creatinine,Serum 2.39 mg/dL (0.70-1.30); Estimated Glomerular Filt Rate 26 ml/min (>60); GFR (African American) 32 ML/MIN (>60); Glucose 295 mg/dL (74-106); Potassium 4.1 mmoL/L (3.5-5.1); Sodium 138 mmol/L (136-145)
[2019-05-08 19:46] LABS: Basophils # 0.1 K/mm3 (0-0.2); Basophils % 0.7 % (0.1-2.0); Eosinophils # 0.3 K/mm3 (0.0-0.4); Eosinophils % 4.2 % (0.1-12.0); Hematocrit 39.2 % (42.0-52.0); Hemoglobin 13.1 g/dL (14.1-18.0); Lymphocytes # 2.1 K/mm3 (0.7-4.5); Lymphocytes % 26.4 % (10-50); Mean Corpuscular HGB Conc 33.4 g/dL (31.8-35.4); Mean Corpuscular Hemoglobin 30.2 pg (27.0-31.2); Mean Corpuscular Volume 90.4 fl (80-94); Mean Platelet Volume 8.8 fl (7.4-10.4); Monocytes # 0.5 K/mm3 (0.1-1.0); Monocytes % 5.7 % (1.7-9.3); Neutrophils % 62.9 % (37.0-80.0); Platelet Count 216 K/mm3 (142-424); Red Blood Count 4.34 M/mm3 (4.60-6.20); Red Cell Distribution Width 13.9 % (11.5-17.5)
== END ==
PROVIDERS: Visit Provider Internal Medicine Nephrology
DX: N18.4 Chronic kidney disease, stage 4 (severe) (principal)
CPT/HCPCS: 36415; 80069; 85025

== ENCOUNTER 2019-08-10 16:32 | Inpatient (IN) | payer MEDICARE, SELFPAY ==
[2019-08-10] VITALS (14 sets, daily range): BP systolic 99–185; BP diastolic 58–109; PULSE 50–101; RESP 16–20; TEMP 36.3–36.7; O2SAT 93–99; BMI 28.2; BMI 29.2
--- NOTE | 2019-08-10 16:38 | XR_ITS ---
PROCEDURE: XR CHEST 2V CLINICAL HISTORY: cp Chest pain, heart disease, former smoker COMPARISON: CXR1 CHEST-PORTABLE from 09/20/2013 CXR1 CHEST-PORTABLE from 03/23/2017 CXR1VP XR chest portable from 06/01/2018 FINDINGS: Coronary artery calcifications/stents are noted. There is a biventricular and right atrial pacemaker present. COPD. No lobar consolidation or collapse. The chin obscures the upper chest Old bilateral rib fractures IMPRESSION: No acute findings. Dictated by: Salas Alex MD 08/11/2019 06:41 Electronically signed by Salas Alex MD in [place] 08/11/2019 06:41
--- NOTE | 2019-08-10 16:38 | ECG_ITS ---
APPROVED REPORT Exam: Resting ECG HR:103 bpm ECG Measurements Heart Rate 103 AXES ND 156 P 60 QRSd 146 QRS -70 QT 398 T 90 QTc 521 <Conclusion> Sinus tachycardia with frequent premature ventricular complexes Right bundle branch block Left anterior fascicular block Bifascicular block Left ventricular hypertrophy with repolarization abnormality Cannot rule out Septal infarct, age undetermined Abnormal ECG Electronically signed by : John Rosario, 08/12/2019 21:00:44
--- NOTE | 2019-08-10 16:40 | PC.NURSE ---
Verified with Sanaz from pharmacy on heparin dosing, see mar
[2019-08-10 16:54] LABS: Activated Partial Thrombo Time 28.7 seconds (23.6-34.0); Chloride 101 mmol/L (98-107); INR 0.97 (0.9-1.1); Potassium 3.7 mmoL/L (3.5-5.1); Prothrombin Time 10.1 seconds (9.4-11.8); Sodium 137 mmol/L (136-145)
[2019-08-10 16:57] LABS: Anion Gap 15.7 mEq/L (5-15); Blood Urea Nitrogen 33 mg/dl (9-20); Carbon Dioxide 24 mmol/L (22.0-30.0); Creatinine Clearance Estimated 36 mL/min (50-200); Estimated Glomerular Filt Rate 27 ml/min (>60); GFR (African American) 33 ML/MIN (>60)
[2019-08-10 16:58] LABS: Calcium 9.3 mg/dl (8.4-10.2); Glucose 228 mg/dl (74-100)
--- NOTE | 2019-08-10 17:00 | PC.NURSE ---
PT TO RAD
[2019-08-10 17:05] LABS: Basophils # 0.1 K/mm3 (0-0.2); Basophils % 0.9 % (0.1-2.0); Eosinophils # 0.3 K/mm3 (0.0-0.4); Eosinophils % 3.2 % (0.1-12.0); Hematocrit 39.1 % (42.0-52.0); Hemoglobin 13.4 g/dL (14.1-18.0); Lymphocytes # 2.5 K/mm3 (0.7-4.5); Mean Corpuscular HGB Conc 34.4 g/dL (31.8-35.4); Mean Corpuscular Hemoglobin 30.8 pg (27.0-31.2); Mean Corpuscular Volume 89.5 fl (80-94); Mean Platelet Volume 7.4 fl (7.4-10.4); Monocytes # 0.6 K/mm3 (0.1-1.0); Monocytes % 6.4 % (1.7-9.3); Neutrophils # 5.4 K/mm3 (1.8-7.8); Neutrophils % 61.5 % (37.0-80.0); Platelet Count 207 K/mm3 (142-424); Red Blood Count 4.36 M/mm3 (4.60-6.20); Red Cell Distribution Width 14.1 % (11.5-17.5); White Blood Count 8.8 K/mm3 (4.8-10.8)
[2019-08-10 17:10] LABS: Troponin I 0.02 ng/ml (0.00-0.034)
--- NOTE | 2019-08-10 17:26 | PC.NURSE ---
dr martin and Dr Hernandez paged
--- NOTE | 2019-08-10 17:27 | PC.NURSE ---
Dr Leone speaking with Dr Rodrigez.
--- NOTE | 2019-08-10 17:36 | HMH.EDCP ---
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 The time I documented below is in addition to time spent performing reported procedures but includes the following listed in this critical care notation. Medical Decision Making - Medical Records Medical records reviewed: Yes: I reviewed the patient's medical records. - Sunil Inquiry Pt receiving controlled substance: No Vital Signs: 08/10/19 16:32 Temperature 98 F Temperature Source Oral Pulse Rate [Right] 101 H Respiratory Rate 20 Blood Pressure [Right Arm] 165/109 H Blood Pressure Mean [Right Arm] 127 02 Sat by Pulse Oximetry 97 - Lab Data Lab results reviewed: Yes: I reviewed the patient's lab results. Lab Results 08/10/19 16:35: WBC 8.8, RBC 4.36 L, Hgb 13.4 L, Hct 39.1 L, MCV 89.5, MCH 30.8, MCHC 34.4, RDW 14.1, Plt Count 207, MPV 7.4, Neut % (Auto) 61.5, Lymph % (Auto) 28.0, [place] % (Auto) 6.4, Eos % (Auto) 3.2, Baso % (Auto) 0.9, Neut # (Auto) 5.4, Lymph # (Auto) 2.5, [place] # (Auto) 0.6, Eos # (Auto) 0.3, Baso # (Auto) 0.1 08/10/19 16:35: Sodium 137, Potassium 3.7, Chloride 101, Carbon Dioxide 24, Anion Gap 15.7 H, BUN 33 H, Creatinine 2.30 H, Estimated Creat Clear 36, Estimated GFR 27 L, Est GFR ( Amer) 33 L, Glucose 228 H, Calcium 9.3, Troponin I 0.02 08/10/19 16:35: PT 10.1, INR 0.97, APTT 28.7 Result diagrams: 08/10/19 16:35 08/10/19 16:35 Orders (Tests/Meds): ED MEDICATIONS Generic Name Dose Route Start Last Admin Trade Name Cornelius PRN Reason Stop Dose Admin Atorvastatin Calcium 80 mg 08/10/19 21:00 08/10/19 17:04 Lipitor 40mg Tablet PO 09/09/19 20:59 80 mg HS REMY Administration Heparin Sodium/Dextrose 500 mls @ 20 mls/hr 08/10/19 16:45 08/10/19 17:22 Heparin 25,000 Units In D5w 500ml Premix IV 09/09/19 16:44 20 mls/hr .Q25H REMY Administration 1,000 UNITS/HR Discontinued Medications Generic Name Dose Route Start Last Admin Trade Name Cornelius PRN Reason Stop Dose Admin Aspirin 243 mg 08/10/19 16:42 08/10/19 16:43 Aspirin 81mg Chewable Tablet PO 08/10/19 16:43 243 mg ONCE ONE Administration Clopidogrel Bisulfate 300 mg 08/10/19 16:40 08/10/19 16:43 Plavix 300mg Tablet PO 08/10/19 16:41 300 mg ONCE ONE Administration Heparin Sodium (Porcine) 5,000 unit 08/10/19 16:41 08/10/19 16:43 Heparin Sodium 5,000 Units/Ml Vial IV 08/10/19 16:42 5,000 unit ONCE ONE Administration Morphine Sulfate 2 mg 08/10/19 17:13 08/10/19 17:15 Morphine 2mg/Ml Syringe IV 08/10/19 17:14 2 mg ONCE ONE Administration Morphine Sulfate 4 mg 08/10/19 17:31 08/10/19 17:34 Morphine 4mg/Ml Syringe IV 08/10/19 17:32 4 mg ONCE ONE Administration Nitroglycerin 1 gm 08/10/19 16:40 08/10/19 16:43 Nitroglycerin 1 Inch Oint Udp TD 08/10/19 16:41 1 gm ONCE ONE Administration Ondansetron HCl 4 mg 08/10/19 17:13 08/10/19 17:15 Zofran 4mg/2ml Vial IV 08/10/19 17:14 4 mg ONCE ONE Administration ORDERS Category Date Time Status XR chest 2V Stat Exams 08/10/19 16:38 Taken Troponin I Q3H Lab 08/10/19 19:45 Ordered Troponin I Q3H Lab 08/10/19 22:45 Ordered ECG Request by /Nse Stat Y 08/10/19 16:38 Ordered - Radiology Data #1 Image(s): Chest Preliminary Findings: Normal/NAD - ECG Data Tracing #1 I reviewed this ECG and
--- NOTE | 2019-08-10 17:37 | PC.NURSE ---
CALLED CHARGE NURSE FOR BED ASSIGNMENT. PATIENT WILL BE ADMITTED TO ROOM 216. ER STAFF NOTIFIED AT THIS TIME.
[2019-08-10 20:14] LABS: Troponin I 0.18 ng/ml (0.00-0.034)
--- NOTE | 2019-08-10 21:21 | ECG_ITS ---
APPROVED REPORT Exam: Resting ECG HR:83 bpm ECG Measurements Heart Rate 83 AXES [place] 210 P 55 QRSd 156 QRS -66 QT 450 T 67 QTc 528 <Conclusion> Sinus rhythm with 1st degree AV block and premature ventricular complexes or fusion complexes Right bundle branch block Left anterior fascicular block Bifascicular block Left ventricular hypertrophy with repolarization abnormality Abnormal ECG Electronically signed by : John Rosario, 08/12/2019 21:00:18
[2019-08-10 22:53] LABS: Troponin I 0.42 ng/ml (0.00-0.034)
[2019-08-10 23:57] LABS: Activated Partial Thrombo Time 53.2 seconds (23.6-34.0)
[2019-08-11] VITALS (11 sets, daily range): BP systolic 120–170; BP diastolic 41–72; PULSE 40–68; RESP 14–20; TEMP 36.4–36.7; O2SAT 95–98; BMI 29.1
[2019-08-11 00:11] LABS: POC Glucose,Bedside 278 (70-110)
[2019-08-11 06:31] LABS: Basophils # 0.1 K/mm3 (0-0.2); Basophils % 1.1 % (0.1-2.0); Eosinophils # 0.4 K/mm3 (0.0-0.4); Eosinophils % 6.6 % (0.1-12.0); Hematocrit 36.1 % (42.0-52.0); Hemoglobin 12.5 g/dL (14.1-18.0); Lymphocytes # 1.8 K/mm3 (0.7-4.5); Lymphocytes % 28.9 % (10-50); Mean Corpuscular HGB Conc 34.7 g/dL (31.8-35.4); Mean Corpuscular Hemoglobin 31.3 pg (27.0-31.2); Mean Platelet Volume 8.1 fl (7.4-10.4); Monocytes # 0.3 K/mm3 (0.1-1.0); Monocytes % 5.2 % (1.7-9.3); Neutrophils # 3.7 K/mm3 (1.8-7.8); Neutrophils % 58.2 % (37.0-80.0); Platelet Count 182 K/mm3 (142-424); Red Blood Count 4.01 M/mm3 (4.60-6.20); Red Cell Distribution Width 14.1 % (11.5-17.5); White Blood Count 6.4 K/mm3 (4.8-10.8)
[2019-08-11 06:51] LABS: Alanine Aminotransferase 27 U/L (12-78); Albumin Level 3.5 g/dl (3.5-5.0); Albumin/Globulin Ratio 1.3 (1.1-1.8); Alkaline Phosphatase 86 U/L (38-126); Anion Gap 9.9 mEq/L (5-15); Aspartate Amino Transferase 76 U/L (17-59); Bilirubin,Total 0.4 mg/dl (0.2-1.3); Blood Urea Nitrogen 36 mg/dl (9-20); Calcium 8.9 mg/dl (8.4-10.2); Carbon Dioxide 30 mmol/L (22.0-30.0); Chloride 99 mmol/L (98-107); Creatinine Clearance Estimated 39 mL/min (50-200); Estimated Glomerular Filt Rate 29 ml/min (>60); GFR (African American) 35 ML/MIN (>60); Globulin 2.8 g/dL (1.3-3.2); Potassium 3.9 mmoL/L (3.5-5.1); Sodium 135 mmol/L (136-145); Total Protein,Serum 6.3 g/dl (6.3-8.2)
[2019-08-11 06:54] LABS: Glucose 293 mg/dl (74-100)
[2019-08-11 06:54] LABS: POC Glucose,Bedside 280 (70-110)
--- NOTE | 2019-08-11 07:57 | HMH.HP ---
*Admission Date: 08/10/19 *Chief complaint: Chest pain *History of present illness: 78-year-old male with known coronary artery disease and chronic angina presented to the emergency department after multiple episodes of chest pain yesterday while mowing his yard. Patient reports he was mowing his yard and would get a very sharp left-sided chest pain that would radiate into his left arm down into his third fourth and fifth fingers. Each time he got chest pain he took nitroglycerin and nitroglycerin would alleviate the pain for approximately 20 minutes. Patient would resume mowing his yard and after 20 minutes he would have recurrence of chest pain. He reports the pain he was getting in his chest was slightly different this time then the chronic angina he experiences. However patient cannot specify whether it was more intense or a change in his chest pain he only states it was different . He admits to nausea with his usual angina and this time he even vomited. He also broke out in a sweat and experienced dyspnea. Patient ultimately presented to the emergency department for evaluation. In the ER because of the patient's persistent angina he was started on heparin and loaded with Plavix. Patient was also given aspirin 325 mg. Patient's payroll and benefits coordinator, Dr. Rodrigez, was contacted and agreed with the plan and patient was admitted to the hospital for serial enzymes which have gradually trended up. Last troponin was in an indeterminate range. Patient continued to have some chest pain until he was given morphine at around 1 AM. Patient reports with administration of morphine his chest pain is resolved and he has had no further chest pain since 1 AM. Patient remains on heparin drip. He also diuresed 1-1/2 L of fluid overnight. He admits that he has noticed increased swelling in his upper and lower extremities and had increased his diuretic at home. This is been the patient's pattern for quite some time and he will monitor his fluid intake and weight gain. Within the last 3 months patient is undergone evaluation at the [facility] regarding his chronic angina. Patient states after a 12-hour evaluation he was told there was nothing else that could be done for his heart from an intervention standpoint and management would need to be medical. Patient averages 1 nitroglycerin per day but admits that he usually only takes nitroglycerin every 3 to 4 days, meaning he uses multiple doses of nitroglycerin when it is being used. He does describe resolution of chest pain at times when he rests but he likes to stay active. [facility] History I have reviewed the patient's past medical history: Yes Medical History: Reports:: Congestive Heart Failure, Coronary Artery Disease, Diabetes Mellitus Type 2, Hyperlipidemia, Hypertension, Internal Pacemaker, Renal Disease, Renal Insufficiency Denies:: Cancer, Diabetes Mellitus Type 1, MRSA, Seizures *Have you ever received a pneumonia vaccine?: No *Have you received a flu vaccine this season?: No Other Medical History: Reports: Other. Denies: Blood Transfusion Reaction Laterality Cases: Bilateral: Cataract Other Surgeries: Yes: Cardiac Catheterization, Hernia Repair, Pacemaker, Other Amputation: Yes (traumatic tip right index finger) Fractures: No - *Social History Educational Level: Attended High School Smoking Status: Former smoker Tobacco Type: cigarettes # Packs/Day (cigarettes): 4 #Yrs smoked (if former smoker): 50 Alcohol Intake: never Alcohol Intake Frequency:: other Substance Use Type: denies use *Occupational Status:: retired Housing: house Household Members: significant other *Travel in the last 8 weeks: None Family Hx:: Diabetes, Kidney Disease Review of Systems - Review of Systems Review of systems:: pertinent systems reviewed and negative unless documented below Meds Home Medications Medication Instructions Recorded Confirmed Type calcium carbonate 600 mg calcium 600 mg PO DAILY tab 04/26/17
--- NOTE | 2019-08-11 07:58 | PC.NURSE ---
Late Entry: Early in shift, pt c/o chest pain 2/10 on [employer]. Pt denied any SOA or dyspnea. BP elevated of 157/96 and HR 70-80's with frequent PVC's (q 4th beat with single or couplet PVC) noted on tele. Pt turned onto right side and immediately reported that pain increased, pt rating 8/10 on [employer]EL[employer]. Pt medicated with Morphine per MAR, placed on 2L NC and EKG obtained. It was also noted that pt's 2nd troponin increased to 0.18. Dr. Hernandez is notified of the above findings including ER and current EKGs. MD stated to contact Dr. Rodrigez to report the troponin changes and forward the new EKG for review. This RN s/w Dr. Rodrigez and new order received for Metoprolol Tartrate 50mg PO 1x dose now and to call him back in 1 hr for an update. This RN s/w Dr. Hernandez again after speaking with Dr. Rodrigez, updated him on the above. Dr. Hernandez placed new orders for Bumex 1mg IVP 1x now and reordered a few home meds as well as SSI. Pt's CP decreased to 0, BP decreased and HR showing more paced with bigeminal PVCs. Pt fell asleep shortly after care. The 3rd serial troponin increased to 0.42. Dr. Rodrigez was notified of the 3rd troponin and updated on pt's VS, heart rhythm, Dr. Hernandez's new orders, and pt reporting to be pain free and sleeping. MD stated to continue pt on heparin gtt and that if he continued to c/o CP, he would cath him Monday (08/10). If pt is CP free, MD will wait until Monday (08/11). Dr. Hernandez was also notified of the 3rd troponin level and Dr. Rodrigez's plan. Pt had a good response to the Bumex and diueresed 1,600ml of urine. Pt has denied any continued CP t/o the remainder of the shift. BP has decreased, HR 40- low 80's t/o shift. While pt is asleep HR is paced at 60 bpm without PVC and while pt is awake, the freq PVC's return. Lungs CTA, very diminished L base. No edema noted. Pt's heparin gtt was increased to 22ml/hr per Sanaz Koo @ 8090 and new order placed for repeat PTT @ 0630. Will continue to monitor pt.
[2019-08-11 08:08] LABS: Troponin I 3.52 ng/ml (0.00-0.034)
--- NOTE | 2019-08-11 09:12 | HMH.PHAVTE ---
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 (Acute) Hypertensive heart disease (Acute) NSTEMI (non-ST elevated myocardial infarction) (Acute) Type 2 diabetes mellitus with hyperglycemia, with long-term current use of insulin (Acute) Right bundle branch block (RBBB) (Chronic) Hyperlipidemia (Chronic) Hypertensive disorder (Chronic) Chronic kidney disease, stage 3 (Chronic) - VTE Risk Labs: VTE Related Lab Results Hgb 12.5 g/dL (14.1-18.0) L 08/11/19 06:10 Hct 36.1 % (42.0-52.0) L 08/11/19 06:10 Plt Count 182 K/mm3 (142-424) 08/11/19 06:10 PT 10.1 seconds (9.4-11.8) 08/10/19 16:35 INR 0.97 (0.9-1.1) 08/10/19 16:35 APTT 52.0 seconds (23.6-34.0) H* 08/11/19 06:10 BUN 36 mg/dl (9-20) H 08/11/19 06:10 Creatinine 2.20 mg/dl (0.66-1.25) H 08/11/19 06:10 Estimated Creat Clear 39 mL/min (50-200) 08/11/19 06:10 Was VTE Risk Assessment Performed: Yes VTE Score: 6 VTE Risk Level: Moderate Risk - Prophylaxis VTE Prophylaxis Ordered?: Yes Types of VTE Prophylaxis: Pharmacological Pharmacologic Type: Heparin
[2019-08-11 11:23] LABS: POC Glucose,Bedside 367 (70-110)
--- NOTE | 2019-08-11 13:12 | HMH.PHAHEP ---
[facility] Pharmacy Heparin Dosing - Demographic Data Admission date:: 08/10/19 Date: 08/11/19 Time: 13:13 Allergies/Adverse Reactions: Allergies Allergy/AdvReac Type Severity Reaction Status Date / Time azithromycin Allergy Mild Verified 04/24/19 11:25 clindamycin Allergy Mild Verified 04/24/19 11:25 Penicillins Allergy Mild Verified 04/24/19 11:25 ticagrelor [From Brilinta] Allergy Mild Verified 04/24/19 11:25 mycins Allergy Mild Uncoded 04/24/19 11:25 Height: 1.88 m Weight: 103 kg - Indication Medication therapy:: Heparin Patient Problems: Current Active Problems Chest pain (Acute) 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 (Acute) Hypertensive heart disease (Acute) NSTEMI (non-ST elevated myocardial infarction) (Acute) Type 2 diabetes mellitus with hyperglycemia, with long-term current use of insulin (Acute) Right bundle branch block (RBBB) (Chronic) Hyperlipidemia (Chronic) Hypertensive disorder (Chronic) Chronic kidney disease, stage 3 (Chronic) CVA?: No Bleeding problem?: No Kidney disease?: No AL?: No Desired PTT range:: 60-80 seconds - Labs Anticoagulation Lab Results:: 08/10/19 08/11/19 16:35 06:10 Hgb 13.4 L 12.5 L Hct 39.1 L 36.1 L Plt Count 207 182 - Monitoring Dose Monitor 1 Date: 08/10/19 Time: 16:35 PTT Result:: 28.7 Infusion Rate:: 20 ML/HR Comment:: 5000 UNIT BOLUS GIVEN [id number] Dose Monitor 2 Date: 08/10/19 Time: 23:35 PTT Result:: 53.2 Infusion Rate:: 22 ML/HR Dose Monitor 3 Date: 08/11/19 Time: 06:30 PTT Result:: 52.0 Infusion Rate:: 24 ML/HR Comment:: [id number] Dose Monitor 4 Date: 08/11/19 Time: 14:00 PTT Result:: 55.1 Infusion Rate:: 26 ML/HR Dose Monitor 5 Date: 08/11/19 Time: 21:00 PTT Result:: 68.3 Infusion Rate:: 26 ML/HR Dose Monitor 6 Date: 08/12/19 Time: 04:00 PTT Result:: 78.7 Infusion Rate:: 25 ML/HR - Core Measures Is INR > or = 2 at discharge?: No Most Recent Labs:: Laboratory Results - last 24 hr 08/10/19 16:35: WBC 8.8, RBC 4.36 L, Hgb 13.4 L, Hct 39.1 L, MCV 89.5, MCH 30.8, MCHC 34.4, RDW 14.1, Plt Count 207, MPV 7.4, Neut % (Auto) 61.5, Lymph % (Auto) 28.0, [place] % (Auto) 6.4, Eos % (Auto) 3.2, Baso % (Auto) 0.9, Neut # (Auto) 5.4, Lymph # (Auto) 2.5, [place] # (Auto) 0.6, Eos # (Auto) 0.3, Baso # (Auto) 0.1 08/10/19 16:35: Sodium 137, Potassium 3.7, Chloride 101, Carbon Dioxide 24, Anion Gap 15.7 H, BUN 33 H, Creatinine 2.30 H, Estimated Creat Clear 36, Estimated GFR 27 L, Est GFR ( Amer) 33 L, Glucose 228 H, Calcium 9.3, Troponin I 0.02 08/10/19 16:35: PT 10.1, INR 0.97, APTT 28.7 08/10/19 19:45: Troponin I 0.18 H 08/10/19 21:31: POC Glucose 278 H 08/10/19 22:23: Troponin I 0.42 H 08/10/19 23:35: APTT 53.2 H* D 08/11/19 05:10: Troponin I 3.52 H 08/11/19 06:10: WBC 6.4 D, RBC 4.01 L, Hgb 12.5 L, Hct 36.1 L, MCV 90.0, MCH 31.3 H, MCHC 34.7, RDW 14.1, Plt Count 182, MPV 8.1, Neut % (Auto) 58.2, Lymph % (Auto) 28.9, [place] % (Auto) 5.2, Eos % (Auto) 6.6, Baso % (Auto) 1.1, Neut # (Auto) 3.7, Lymph # (Auto) 1.8, [place] # (Auto) 0.3, Eos # (Auto) 0.4, Baso # (Auto) 0.1 08/11/19 06:10: Sodium 135 L, Potassium 3.9, Chloride 99, Carbon Dioxide 30 D, Anion Gap 9.9, BUN 36 H, Creatinine 2.20 H, Estimated Creat Clear 39, Estimated GFR 29 L, Est GFR ( Amer) 35 L, Glucose 293 H D, Calcium 8.9, Total Bilirubin 0.4, AST 76 H, ALT 27, Alkaline Phosphatase 86, Total Protein 6.3, Albumin 3.5, Globulin 2.8, Albumin/Globulin Ratio 1.3 08/11/19 06:10: APTT 52.0 H* 08/11/19 06:39: POC Glucose 280 H 08/11/19 11:11: POC Glucose 367 H* If INR was < than 2.0 why was therapy stopped?: ON HEPARIN FOR CARDIAC, WENT TO [facility] AND DRIP WAS STOPPED Were Heparin and Warfarin started on the same day?: No If not, why?: WARFARIN NOT INDICATED, NO VTE
[2019-08-11 14:57] LABS: Activated Partial Thrombo Time 55.1 seconds (23.6-34.0)
[2019-08-11 16:23] LABS: POC Glucose,Bedside 398 (70-110)
--- NOTE | 2019-08-11 16:36 | PC.NURSE ---
PT IS SITTING UP IN THE CHAIR. ALERT AND ORIENTED X4. PT STATES HE WILL NOT LET THEM DO A HEART CATH ON HIM TOMORROW UNLESS THEY PUT HIM COMPLETELY ASLEEP B/C HE IS NOT ABLE TO TOLERATE LYING FLAT. PT HAS BEEN PACED ON THE MONITOR T/O THE SHIFT. LUNG SOUNDS DIMINISHED. BOWEL SOUNDS NORMAL. VSS. SCATTERED ABRASIONS NOTED TO BLE. WILL CONTINUE TO MONITOR.
[2019-08-11 21:24] LABS: Activated Partial Thrombo Time 68.3 seconds (23.6-34.0)
--- NOTE | 2019-08-11 21:34 | PC.NURSE ---
Spoke with Ford Koo in pharmacy. PTT 68.3. Keep Heparin gtt @ 26 ml/hr.
[2019-08-11 21:38] LABS: POC Glucose,Bedside 315 (70-110)
[2019-08-12] VITALS (20 sets, daily range): BP systolic 96–158; BP diastolic 44–81; PULSE 60–115; RESP 16–26; TEMP 36.4–36.6; O2SAT 87–100; BMI 29.1
--- NOTE | 2019-08-12 | IR_ITS ---
APPROVED REPORT Patient Location: Inpatient Roulette Dealer: KADY Randhawa RT (R) PROCEDURES Left heart catheterization Selective coronary angiogram INDICATION Acute non-ST elevation myocardial infarction troponin greater than 3 Informed consent was obtained prior to the procedure. COMPLICATIONS NONE Estimated Blood Loss: LESS THAN 10 MLS TECHNIQUE One percent lidocaine was used to anesthetize the right groin. The right femoral artery was accessed via the Seldinger technique. A 4-Czech sheath was placed in the right femoral artery. The JL-4 and JR-4 catheter was also used to perform left heart catheterization left ventriculogram and selective coronary angiogram. At the end of the procedure the patient was transferred to the post-op holding area in stable condition for arterial sheath removal. A total of 9 cc of contrast was used for the entire cardiac procedure ANGIOGRAPHIC RESULTS The left main artery Has mild ostial mid vessel 10 to 20% lpd-audr-enrzdliy stenoses The left anterior descending artery Is ostially normal and then has a stent in the proximal through mid segment which has mild to moderate npr-uhbd-sxojjlwd in-stent restenosis. The remaining LAD is widely patent. A large first diagonal artery has an ostial stent which is widely patent. Distal to the stent are 30 and 40% vuy-yfpm-ogbvtmlu stenoses The circumflex artery Is a large vessel with 2 large obtuse marginal arteries. Each vessel has 30% guw-dgde-elremfgx stenoses The right coronary artery Is a large dominant vessel and has proximal 30 to 40% concentric stenosis with mild diffuse vascular ectasia. Distally there is a 30% stenosis. The BOONE ventriculogram reveals None obtained The left ventricular end-diastolic pressure Less than 10 mmHg IMPRESSION Coronary artery disease as described above all of which is atb-kwgr-uzhjxizd with widely patent stents Currently patient has normal LVEDP PLAN 1. Continue medical management Electronically signed by : Shon Rodrigez, 08/12/2019 10:33:58
--- NOTE | 2019-08-12 00:01 | CA_ITS ---
APPROVED REPORT EXAM: Comprehensive 2D, Doppler, and color-flow Echocardiogram Dancing Master: Ana Grijalva CRT Ht: 6 ft 2 in Wt: 227lbs BSA: 2.29 BP: 120/46 mmHg Indications: HTN, DM, ex smoker, chf, pacer, stents, ex alcohol use, HLD. 2D Dimensions LVOT 2.38 cm (M/F) 1.5-2.5 M-Mode Dimensions RVDd 2.83 cm (0.9-2.6) LVDd 6.52 cm (3.5-5.7) LVDs 5.82 cm (3.5-5.7) IVSd 1.64 cm (0.6-1.1) PWd 0.70 cm (0.6-1.1) EF (Teich) 22.80% FS 10.70% EDV (Teich) 217.50 mL ESV (Teich) 167.90 mL LV Diastology E/A Ratio 1.05 Aortic Valve LVOT Max 114.00 (70-110 cm/s) LVOT VTI 25.69 cm Mitral Valve MV A Velocity 88.00 (40-130 cm/s) Left Ventricle Left atrium is mildly enlarged, left ventricle is normal size, mild concentric left ventricular hypertrophy, visually estimated ejection fraction approximately 40%, there is marked hypokinesis involving the inferior basal and posterior lateral wall. Grade 1 diastolic dysfunction seen with tissue Doppler evidence of raise left atrial pressure. Right Ventricle Right atrium and right ventricular mildly enlarged with normal contractility, there is a pacemaker lead seen right atrium and right ventricle. Aortic Valve Aortic valve is thickened and calcified leaflet continue to display mobility, Doppler is not indicated above significant aortic stenosis, there is mild aortic insufficiency. Mitral Valve Mitral valve leaflets are minimally thickened, there is no mitral stenosis, there is moderate mitral regurgitation. Tricuspid Valve Tricuspid valve is minimally thickened, there is mild tricuspid regurgitation, calculated right ventricular systolic pressure is 50 mmHg. Pulmonic Valve Pulmonic valve is poorly visualized. Great Vessels Aortic root is normal size. Pericardium No significant pericardial effusion noted. Conclusion 1. Normal left ventricular size, mild concentric left ventricular hypertrophy, visually estimated ejection fraction 40% with segmental wall motion abnormality described above, grade 1 diastolic dysfunction seen with tissue Doppler evidence of raise left atrial pressure. 2. Thickened and calcified aortic valve without Doppler evidence of aortic stenosis, there is mild aortic insufficiency. 3. Moderate mitral and tricuspid regurgitation, calculated right ventricular systolic pressure is 50 mmHg. 4. No significant pericardial effusion noted. Electronically signed by : Landon Freitas, 08/12/2019 20:16:35
[2019-08-12 04:51] LABS: Activated Partial Thrombo Time 78.7 seconds (23.6-34.0)
--- NOTE | 2019-08-12 05:45 | PC.NURSE ---
Pt is currently resting in chair. Has c/o discomfort to chest, shoulder, back and abdomen. Pt stated he had a burning sensation when he breathes in. Pt was asked if he has GERD. Pt stated , Yes . MD was consulted. Calcium carbonate ordered and administered. Pt states that discomfort has improved. Heparin gtt adjusted per pharmacy.APTT 78.7. Heparin currently 25 ml/hr per Sanaz Koo. VSS. Paced on telemetry. Pt is currently NPO for cardiac consult. No other concerns at this time. Will continue to monitor.
--- NOTE | 2019-08-12 07:19 | P.PN_ITS ---
Internal Medicine - PN: Subj *Date: 08/12/19 *Time: 07:19 Interval history: Patient developed a burning sensation in his chest yesterday that was successfully treated with pantoprazole and Tums. Patient admits he gets heartburn frequently and lives on Tums . He denies any further anginal chest pain. Exam Vital signs and Labs for Last 24 Hours: Temp Pulse Resp BP Pulse Ox 97.7 F 60 16 109/61 L 98 08/12/19 04:00 08/12/19 04:00 08/12/19 04:00 08/12/19 04:00 08/12/19 04:00 Laboratory Results - last 24 hr 08/11/19 05:10: Troponin I 3.52 H 08/11/19 11:11: POC Glucose 367 H* 08/11/19 14:21: APTT 55.1 H* 08/11/19 16:07: POC Glucose 398 H* 08/11/19 20:11: POC Glucose 315 H* 08/11/19 20:58: APTT 68.3 H* D 08/12/19 04:25: APTT 78.7 H* D I & O for Last 24 hours: Intake & Output 08/09/19 08/10/19 08/11/19 08/12/19 11:59 11:59 11:59 11:59 Intake Total 1311 / 1311 1184 / 1184 Output Total 1600 / 1600 675 / 675 Balance -289 / -289 509 / 509 Weight 227 lb 6 oz 227 lb 1.218 oz Narrative: Patient is awake and alert sitting up in bed. Lungs are clear to auscultation. Heart has a regular rate and rhythm. 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 Current visit: Yes Status: Acute Category: Medical Code(s): I25.710 - Atherosclerosis of autologous vein coronary artery bypass graft(s) with unstable angina pectoris (3) Hypertensive heart disease Current visit: Yes Status: Acute Qualifiers: Heart failure presence: with heart failure Heart failure type: systolic Heart failure chronicity: acute Qualified Code(s): I11.0 - Hypertensive heart disease with heart failure; I50.21 - Acute systolic (congestive) heart failure Category: Medical Code(s): I11.9 - Hypertensive heart disease without heart failure (4) Right bundle branch block (RBBB) Current visit: Yes Status: Chronic Category: Medical Code(s): I45.10 - Unspecified right bundle-branch block (5) Angina, class IV Current visit: No Status: Acute Category: Medical Code(s): I20.9 - Angina pectoris, unspecified (6) Cardiac pacemaker in situ Current visit: No Status: Acute Category: Medical Code(s): Z95.0 - Presence of cardiac pacemaker (7) Coronary artery disease Current visit: No Status: Acute Category: Medical Code(s): I25.10 - Atherosclerotic heart disease of [place] coronary artery without angina pectoris (8) LV dysfunction Current visit: No Status: Chronic Category: Medical Code(s): I51.9 - Heart disease, unspecified (9) Chronic kidney disease, stage IV (severe) Current visit: No Status: Chronic Category: Medical Code(s): N18.4 - Chronic kidney disease, stage 4 (severe) (10) Type 2 diabetes mellitus with hyperglycemia, with long-term current use of insulin Current visit: Yes Status: Acute Category: Medical Code(s): E11.65 - Type 2 diabetes mellitus with hyperglycemia; Z79.4 - snf (current) use of insulin - Assessment and plan all Dx Assessment and Plan for all problems:: 1. Left heart cath today 2. Echocardiogram this morning
[2019-08-12 07:57] LABS: POC Glucose,Bedside 222 (70-110)
[2019-08-12 08:24] LABS: Chloride 95 mmol/L (98-107); Potassium 4.9 mmoL/L (3.5-5.1); Sodium 134 mmol/L (136-145)
[2019-08-12 08:27] LABS: Anion Gap 16.9 mEq/L (5-15); Blood Urea Nitrogen 42 mg/dl (9-20); Calcium 9.1 mg/dl (8.4-10.2); Carbon Dioxide 27 mmol/L (22.0-30.0); Creatinine Clearance Estimated 30 mL/min (50-200); Estimated Glomerular Filt Rate 21 ml/min (>60); GFR (African American) 25 ML/MIN (>60); Glucose 209 mg/dl (74-100)
--- NOTE | 2019-08-12 09:01 | HMH.CNCARD ---
History of Present Illness Consult date: 08/12/19 Requesting physician: John Da Silva Consult reason: chest pain Chief complaint: chest pain Additional Medical History:: 1. CAD A. SAMEERA to LAD, Cx, First diagonal on two separate occasions in 11/2016. B. Ischemic CM, EF 40% at time of cath, 11/2016 with LVEDP of 35 mm Hg C. Echo, 01/2017, Moderate LAE, mild dilated LV, mild conc LVH, EF 40% with multiple seg wall abnormalities. Mild AR, MR, TR. D. [facility], 06/2017, patent stents in LAD, Circumflex with moderate, non-flow limiting disease noted. LVEF 30%. LVEDP 40 mm Hg. E. [facility], 09/2018, ANGIOGRAPHIC RESULTS: 1. The left main artery normal 2. The left anterior descending artery has an ostial 30-40% stenosis followed by a stent in the proximal through mid segment which is widely patent with 30-40% mid vessel in-stent restenosis. The remaining LAD has mild atheromatous plaque. The first diagonal artery has a stent which T's off the proximal LAD stent which is widely patent free of in-stent restenosis with МАРИЯ-3 flow down the vessel 3. The circumflex artery is nondominant and gives rise to ramus intermedius which has mild 10-20% stenoses. The circumflex artery itself has mid vessel 40% stenosis distal to its present which is widely patent with minimal in-stent restenosis 4. The right coronary artery is a large dominant vessel and has a proximal concentric 40% stenosis followed by mild to moderate diffuse vascular ectasia. The very distal segment of the right coronary artery has 30% stenosis proximal to the posterior descending artery. The posterior descending artery has mid vessel 30% stenosis 5. The BOONE ventriculogram reveals left ventricular dilatation with reduced ejection fraction estimated at 30% 6. The left ventricular end-diastolic pressure 35 to 40 mmHg 7. Right renal artery singular and normal 8. Left renal artery singular and normal IMPRESSION: 1. Nonflow limiting coronary artery disease as described above with widely patent stents as described above 2. Severe left ventricular dysfunction with severely elevated LVEDP 3. Normal renal arteries PLAN: 1. Medical management for coronary artery disease 2. Patient's angina stems from elevated LVEDP. He requires higher amounts of diuresis 3. Patient should be assessed for possible AICD and possible cardiac resynchronization therapy 2. Rib fractures after fall, 03/2017 3. Hyperlipidemia 4. CKD, stage 4 with GFR 24 and Cr 2.57, 08/2018 A. Cr 2.2-2.9, 08/2019 5. DM 6. Cardiomyopathy A. Echo, 08/2018,2D 1. Technically difficult study because of the patient's factor and poor acoustic windows 2. Left atrium is mildly enlarged, left ventricle is mildly dilated, mild concentric left ventricular hypertrophy, visually estimated ejection fraction approximately 35%, there is moderate hypokinesis involving the inferior, distal septum and apical wall. 3. The right atrium and right ventricle are normal size and contractility. There is pacemaker lead seen right ventricle. 4. The aortic valve is thickened and calcified leaflet continue to display mobility. 5. Mitral and tricuspid valve leaflets are minimally thickened. 6. The pulmonic valve is poorly visualized. 7. No significant pericardial effusion noted. DOPPLER INTERROGATION: The maximum aortic out flow velocity recorded study 2.4 m/s, resulting in a mean gradient across valve of 13 mmHg, represents mild aortic stenosis, there is trace aortic insufficiency. Mild mitral and tricuspid regurgitation, tricuspid regurgitation jet velocity is inadequate for calculation of the right ventricular systolic pressure, diastolic parameters are inconclusive. CONCLUSION: 1. Technically difficult study because of the patient's factors and poor acoustic windows 2. Mildly enlarged left atrium, mildly dilated left ventricle, mild concentric left ventricular hypertrophy, visually estimated ejection fraction of 35% with segmental w
--- NOTE | 2019-08-12 09:44 | PC.NURSE ---
spoke with stas donnelly at 0920. pt was moaning and crying to where staff could hear. pt states he needs something to help him relax. stas cony ordered ativan 0.5mg iv x 1. staff went to get consent signed for heart cath and admin ativan at approx 0930. pt states that he feels like the [place] are closing in on him. states he was told last night that he was having a panic attack. pt was able to be distracted and calmed down. at this time approx 0938 chemistry laboratory technician staff arrive in pt room to take pt down for cath r/t un known change in schedule time. during bedside report stas seo rn was notified that the consent was not signed nor had the pt received his am meds. stas seo rn states that she will get the consent signed and pt was given plavix at bedside.
--- NOTE | 2019-08-12 10:50 | HMH.ANESCL ---
[facility] Anesthesia Checklist - Patient Identification Patient Identification: Arm Band, Verbal (Name & ) - Structural Data Admitted From: Inpatient Planned Operative Procedure/s: Cardiac catherization Consent for Planned Operative Procedure(s) Verified: Yes Verified Documents: Surgical Consent, History and Physical - NPO Status Verified Time NPO: 00:00 - Chart Verification Results Verified: CBC, BMP, PT, PTT, INR, ECG (ECG and ECHO 35%), Chest Xray - Additional verifications Fingerstick Blood Glucose: 222 Anesthesia Reactions: No Hx Blood Transfusions: Yes Blood Transfusion Reaction: No - Airway Assessment C-Spine Mobility Assessed: Yes (limited neck ROM) TMJ Mobility Assessed: Yes Dentition: Dentures-good fit (upper, many missing lower) - Neurological Assessment Level of Consciousness: Awake, Alert, Appropriate, Follows Commands Hx Seizures: No Numbness or tingling in extremities: No - Anesthesia Plan Anesthesia Risk discussed: Yes Anesthesia Plan: Verified ASA Class: IV (Emergent) Anesthesia Type: MAC [facility] History I have reviewed the patient's past medical history: Yes Medical History: Reports:: Congestive Heart Failure, Chronic Obstructive Pulmonary Disease (COPD), Coronary Artery Disease, Diabetes Mellitus Type 2, Gastroesophageal Reflux Disease(GERD), Hyperlipidemia, Hypertension, Internal Pacemaker, Renal Disease, Renal Insufficiency Denies:: Cancer, Diabetes Mellitus Type 1, MRSA, Seizures *Have you ever received a pneumonia vaccine?: No *Have you received a flu vaccine this season?: No Other Medical History: Reports: Other. Denies: Blood Transfusion Reaction Comment:: Angina Anesthesia experience/problems:: None Laterality Cases: Bilateral: Cataract Other Surgeries: Yes: Cardiac Catheterization, Hernia Repair, Pacemaker (AICD), Other Amputation: Yes (traumatic tip right index finger) Fractures: No - *Social History Educational Level: Attended High School Smoking Status: Former smoker Tobacco Type: cigarettes # Packs/Day (cigarettes): 4 #Yrs smoked (if former smoker): 50 Alcohol Intake: never Alcohol Intake Frequency:: other Substance Use Type: denies use *Occupational Status:: retired Housing: house Household Members: significant other *Travel in the last 8 weeks: None Family Hx:: Diabetes, Kidney Disease
--- NOTE | 2019-08-12 11:14 | PC.NURSE ---
received report from stas seo rn
--- NOTE | 2019-08-12 13:16 | PC.NURSE ---
pt am meds were not given prior to cath. contacted pharmacy about medications. when pt returns to unit, meds that are daily will be given when pt is able to comply with care
[2019-08-12 14:11] LABS: CATHL Activated Clotting Time 212 SEC (74-125)
[2019-08-12 14:47] LABS: POC Glucose,Bedside 297 (70-110)
--- NOTE | 2019-08-12 15:44 | PC.NURSE ---
1458 called and spoke with stas donnelly in regards to pt condition. pt is agitated, states his back is hurting, then states he is hot and cant breath. pt had oscillating fan placed in room. pt then states he is cold. when fan wasn't removed from pt direction fast enough pt kicked fan over. pt has been yelling out and screaming. when asked what is wrong pt has the same complaints. pt lung sounds also contain audible rhonchi and wheezes. per [place], given 40 lasix now and give another 4mg dose of morphine. meds admin as ordered.
--- NOTE | 2019-08-12 15:56 | PC.NURSE ---
clarified with stas rosario at this time that heparin drip was to be stopped. per [place] yes stop drip
--- NOTE | 2019-08-12 16:38 | HMH.DCSUM ---
General - General Admission date:: 08/10/19 Discharge date: 08/12/19 HPI HPI: 78-year-old male with known coronary artery disease and chronic angina presented to the emergency department after multiple episodes of chest pain yesterday while mowing his yard. Patient reports he was mowing his yard and would get a very sharp left-sided chest pain that would radiate into his left arm down into his third fourth and fifth fingers. Each time he got chest pain he took nitroglycerin and nitroglycerin would alleviate the pain for approximately 20 minutes. Patient would resume mowing his yard and after 20 minutes he would have recurrence of chest pain. He reports the pain he was getting in his chest was slightly different this time then the chronic angina he experiences. However patient cannot specify whether it was more intense or a change in his chest pain he only states it was different . He admits to nausea with his usual angina and this time he even vomited. He also broke out in a sweat and experienced dyspnea. Patient ultimately presented to the emergency department for evaluation. In the ER because of the patient's persistent angina he was started on heparin and loaded with Plavix. Patient was also given aspirin 325 mg. Patient's batting machine operator insulation, Dr. Rodrigez, was contacted and agreed with the plan and patient was admitted to the hospital for serial enzymes which have gradually trended up. Last troponin was in an indeterminate range. Patient continued to have some chest pain until he was given morphine at around 1 AM. Patient reports with administration of morphine his chest pain is resolved and he has had no further chest pain since 1 AM. Patient remains on heparin drip. He also diuresed 1-1/2 L of fluid overnight. He admits that he has noticed increased swelling in his upper and lower extremities and had increased his diuretic at home. This is been the patient's pattern for quite some time and he will monitor his fluid intake and weight gain. Within the last 3 months patient is undergone evaluation at the [facility] regarding his chronic angina. Patient states after a 12-hour evaluation he was told there was nothing else that could be done for his heart from an intervention standpoint and management would need to be medical. Patient averages 1 nitroglycerin per day but admits that he usually only takes nitroglycerin every 3 to 4 days, meaning he uses multiple doses of nitroglycerin when it is being used. He does describe resolution of chest pain at times when he rests but he likes to stay active. Hospital Course Hospital Course: Patient was admitted after receiving aspirin and Plavix in the emergency department and a heparin drip was started. Patient continued to have chest discomfort until 1 AM the morning of admission at which point he received intravenous morphine and his chest pain resolved completely without recurrence the remainder of hospitalization. On admission he was also given intravenous Lasix and diuresed over a liter of fluid with improvement in pedal edema by the following morning. Troponin trended up and on the morning of August 10 was greater than 3. Cardiology was consulted and contacted and patient was scheduled for cardiac catheterization to be performed on the morning of August 11. On the morning of August 11 patient underwent cardiac catheterization with findings as follows: ANGIOGRAPHIC RESULTS The left main artery Has mild ostial mid vessel 10 to 20% abj-jnbd-cjknvbsf stenoses The left anterior descending artery Is ostially normal and then has a stent in the proximal through mid segment which has mild to moderate ydz-drff-xkbebpwb in-stent restenosis. The remaining LAD is widely patent. A large first diagonal artery has an ostial stent which is widely patent. Distal to the stent are 30 and 40% nvt-xsud-efwxbpjv stenoses The circumflex artery Is a large vessel with 2 large obtuse marginal arteries. Each vesse
--- NOTE | 2019-08-12 16:48 | XR_ITS ---
PROCEDURE: XR CHEST PORTABLE CLINICAL HISTORY: acute cough, congestion, confusion, post procedure COMPARISON: CXR1 CHEST-PORTABLE from 03/23/2017 CXR1VP XR chest portable from 06/01/2018 XR CHEST 2V from 08/10/2019 FINDINGS: Normal heart size. Biventricular pacemaker with right atrial lead noted unchanged. Increased density is present in the right upper lobe and right lower lobe consistent with pneumonia which is developed since the previous exam. There are multiple old right-sided rib fractures. IMPRESSION: Right upper and right lower lobe pneumonia Dictated by: Salas Alex MD 08/12/2019 17:34 Electronically signed by Salas Alex MD in [place] 08/12/2019 17:34
[2019-08-12 17:52] LABS: POC Glucose,Bedside 259 (70-110)
--- NOTE | 2019-08-12 18:09 | PC.NURSE ---
pt continues to have altered mental status. pt appears generally confused by items such as the hose for the BP cuff. is aware. md agreed to let pt have food but states that pt needs to be monitored closely. lung sounds continue to have coarse rhonchi and scattered wheezes. decreased pt ivf r/t fluid overload on xray. will continue to monitor. bedsafety in use.
--- NOTE | 2019-08-12 19:19 | PC.NURSE ---
report given to syed
[2019-08-12 22:38] LABS: POC Glucose,Bedside 219 (70-110)
[2019-08-13] VITALS (9 sets, daily range): BP systolic 109–147; BP diastolic 53–80; PULSE 78–99; RESP 16–27; TEMP 36.4–37; O2SAT 91–99
[2019-08-13 00:17] LABS: ABG Base Excess -3.7 mmol/L (-2.4-2.3); ABG HCO3 21.4 mmhg (22.0-26.0); ABG Oxygen Saturation 91 % (90-100); ABG PCO2 36.6 mmhg (35.0-45.0); ABG PH 7.38 mmol/L (7.35-7.45); ABG PO2 60.2 mmhg (80-100); ABG TCO2 22.5 mmhg (23-27)
[2019-08-13 00:18] LABS: Oxygen 2 LPM %
[2019-08-13 00:19] LABS: Allen's Test ACCEPTABLE; Source Right Radial
--- NOTE | 2019-08-13 00:45 | PC.NURSE ---
Late entry: @ 2100 s/w Dr. Da Silva regarding pt's agitation and difficult to console, pt c/o I can't breathe , and to report that pt has had a poor response to diuretics- only had 150ml of urine output since ~ 1430 when he came back to the floor post heart cath. Pt's VS are: BP 107/68 then 91/59, HR 76, sat 86% on 2L then 91% when O2 increased to 3L. Dr. Da Silva given the completed report on the most recent CXR and PNA is indicated in Right upper and lower lobe lung. ordered Levaquin 750 mg IV daily. Currently, lung sounds are noted to have coarse rhonchi t/o right and left lungs and crackles in bases. @ 2245 s/w Dr. Da Silva again regarding pt's agitation and restless and continuing to c/o I just can't breathe despite o2 sat 98-100% on 2L and now has audible and auscultated wheezes. Pt did get Morphine 4 mg ~ 2225 r/t neck, back pain and air hunger. Pt's BP had increased to 144/92 prior to receiving morphine. Pt received relief and pt relaxed and fell asleep for ~ 10min then back to yelling out help , I want to sleep , I just can't breathe , and get me out of this bed . ordered ABG, Stop IVF, Duoneb q4 PRN. RT in pt's rrom ait this time and stated that d/t pt receiving duoneb at this time, we will have to wait for 30 min after r/t pt being on 10L o2 for neb tx. Post neb tx, it is noted that audible wheezes are no longer present and auscultated wheezes are improved. With pt's continuos demand to go back to the chair, once RR decreased and pt no longer c/o I can't breathe , pt was transferred back to chair. Pt tolerated better than the previous transfer with o2 demand and dyspnea. Current BP 121/58, HR 86, RR 24, sat 96% on 2L. Pt continues to moan and call out Oh man and Oh . RT called and stated ABG was almost normal but I recommend increasing O2 to 3L . Pt's o2 was increased t 3L.
--- NOTE | 2019-08-13 05:26 | PC.NURSE ---
@ 0250 Pt became increasingly agitated and wanting to leave AMA. Asks staff to call GF to come and pick him up. Pt made aware that he could bleed out from recent heart cath and/or from his PNA if not treated appropriately. Pt states I don't care anymore, I just wanna get out of here! , Just let me go! This RN and John Brar, RN assessed the pt and found to be A&Ox3, is aware that he had something done today but can not state what he had done. Pt's GF, Minerva was called and given update on pt condition and if she could get pt to calm down. Minerva s/w pt although pt continued to yell towards her, shouting Come get me, please, just get me out of here. I mean it! and dropped the phone with no indication of picking it up again. Pt continued shouting and pulled off leads, sat monitor, gown, and BP cuff. IV still in place but pt was attempting to pull it out when he was interrupted by staff and IV dressed in coban. This RN retrieved phone and Minerva asked where do I come to pick him up? . Pt's GF informed that I would contact MD and then call her back. S/W Dr. Da Silva @ [phone], made aware of the above information. MD ordered Ativan 0.5mg IV 1x. Education on medication given to pt, although he refused to take it at first, stating I just wanna get out of here! I can't take it it anymore! Pt asked What can he not take anymore? , pt reported My back is killing me, I just want to sleep! . Pt informed this medication would help calm him down to sleep. Pt still skeptical but stated I'll try it, if it don't work I'm walking home . Pt medicated with ativan and within several minutes pt appeared to calm down and closing his eyes. Cardiac leads, sat probe, and NC reapplied to pt. Pt would not keep gown on but would allow a blanket. Pull alarm placed on blanket in front on pt. Pt began to appear to sleep quietly. This RN called pt's GF back and updated her on pt's condition. Minerva informed this RN that this is what happened the last time he had this surgery done, they had to have me come stay with him because he was being so mean and threatening the nurses. I won't let him get away with acting like that. I think that is why he is acting this way now, is because I can't be there with him . Minerva asks for this RN to call her back later this am to update her. Pt has occasionally made a few comments or few words but has not completely awoken, since ativan given. To promote rest of pt, will keep pt as calm and quiet as possible and cluster care prior to the change of shift.
--- NOTE | 2019-08-13 05:54 | PC.NURSE ---
WEIGHT NOT DONE DUE TO AGITATION PER RN AT THIS TIME.
--- NOTE | 2019-08-13 07:38 | HMH.ACPN2 ---
Internal Medicine - PN: Subj *Date: 08/13/19 *Time: 07:38 Interval history: Patient underwent left heart catheterization yesterday which fortunately showed no significant obstructive disease. Post procedurally patient developed some increased work of breathing and confusion. Chest x-ray revealed a right upper lobe and right lower lobe pneumonia and patient has been started on Levaquin. Throughout the night he was agitated and sometimes combative with the nurses. Patient contacted his girlfriend and asked her to come and take him home from the hospital but he was finally convinced that he was in no physical shape to leave the hospital and his girlfriend was informed of this as well. This morning the patient reports feeling short of breath. Exam Vital signs and Labs for Last 24 Hours: Temp Pulse Resp BP Pulse Ox 98.6 F 80 27 H 121/58 L 99 08/13/19 00:00 08/13/19 04:00 08/13/19 01:33 08/13/19 00:00 08/13/19 00:00 Laboratory Results - last 24 hr 08/12/19 04:25: Sodium 134 L, Potassium 4.9 D, Chloride 95 L, Carbon Dioxide 27, Anion Gap 16.9 H, BUN 42 H, Creatinine 2.90 H D, Estimated Creat Clear 30, Estimated GFR 21 L, Est GFR ( Amer) 25 L D, Glucose 209 H D, Calcium 9.1 08/12/19 05:41: POC Glucose 222 H 08/12/19 09:21: Activated Clotting Time 212 H* 08/12/19 14:11: POC Glucose 297 H 08/12/19 15:26: APTT 28.0 08/12/19 17:44: POC Glucose 259 H 08/12/19 21:50: POC Glucose 219 H 08/13/19 00:12: Specimen Source Right radial, O2 % 2 lpm, ABG pH 7.38, ABG pCO2 36.6, ABG pO2 60.2 L, ABG HCO3 21.4 L, ABG Total CO2 22.5 L, ABG O2 Saturation 91, ABG Base Excess -3.7 L, Salas Test Acceptable I & O for Last 24 hours: Intake & Output 08/10/19 08/11/19 08/12/19 08/13/19 11:59 11:59 11:59 11:59 Intake Total 1311 / 1311 1184 / 1184 190 / 190 Output Total 1600 / 1600 675 / 675 250 / 250 Balance -289 / -289 509 / 509 -60 / -60 Weight 227 lb 6 oz 227 lb 1.218 oz 227 lb 1.218 oz Narrative: Patient is sitting up in the chair. He is picking at his hospital gown. He is able to answer questions although his voice is quite weak. He shows no increased work of breathing and rhonchi that could be heard standing next to the patient yesterday have improved. Patient still has rales in the right upper and right lower lobe on auscultation. Heart rate is regular. Abdomen is soft. Lower extremities are warm to the touch. 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 Current visit: Yes Status: Acute Category: Medical Code(s): I25.710 - Atherosclerosis of autologous vein coronary artery bypass graft(s) with unstable angina pectoris (3) Hypertensive heart disease Current visit: Yes Status: Acute Qualifiers: Heart failure presence: with heart failure Heart failure type: systolic Heart failure chronicity: acute Qualified Code(s): I11.0 - Hypertensive heart disease with heart failure; I50.21 - Acute systolic (congestive) heart failure Category: Medical Code(s): I11.9 - Hypertensive heart disease without heart failure (4) Right bundle branch block (RBBB) Current visit: Yes Status: Chronic Category: Medical Code(s): I45.10 - Unspecified right bundle-branch block (5) Angina, class IV Current visit: No Status: Acute Category: Medical Code(s): I20.9 - Angina pectoris, unspecified (6) Cardiac pacemaker in situ Current visit: No Status: Acute Category: Medical Code(s): Z95.0 - Presence of cardiac pacemaker (7) Coronary artery disease Current visit: No Status: Acute Category: Medical Code(s): I25.10 - Atherosclerotic heart disease of [place] coronary artery without angina pectoris (8) LV dysfunction Current visit: No Status: Chroni
--- NOTE | 2019-08-13 08:43 | HMH.PNCARD ---
Subjective Date: 08/13/19 Time: 08:43 Principal diagnosis: Chest pain, pneumonia Interval history: 78-year-old white male in bed in no acute distress. Patient is not very communicative this morning with the events of yesterday evening noted. Patient is now being treated for presumed aspiration pneumonia post procedure. Cardiac catheterization revealed no significant obstructive disease with recommendation for continuation of medical therapy. CXR obtained yesterday post procedure due to hypoxia, confusion and agitation. Exam Vital signs and Labs for Last 24 Hours: Temp Pulse Resp BP Pulse Ox 97.9 F 99 H 18 113/69 99 08/13/19 08:00 08/13/19 08:00 08/13/19 08:00 08/13/19 08:00 08/13/19 08:00 Laboratory Results - last 24 hr 08/12/19 09:21: Activated Clotting Time 212 H* 08/12/19 14:11: POC Glucose 297 H 08/12/19 15:26: APTT 28.0 08/12/19 17:44: POC Glucose 259 H 08/12/19 21:50: POC Glucose 219 H 08/13/19 00:12: Specimen Source Right radial, O2 % 2 lpm, ABG pH 7.38, ABG pCO2 36.6, ABG pO2 60.2 L, ABG HCO3 21.4 L, ABG Total CO2 22.5 L, ABG O2 Saturation 91, ABG Base Excess -3.7 L, Salas Test Acceptable I & O for Last 24 hours: Intake & Output 08/10/19 08/11/19 08/12/19 08/13/19 11:59 11:59 11:59 11:59 Intake Total 1311 / 1311 1184 / 1184 310 / 310 Output Total 1600 / 1600 675 / 675 250 / 250 Balance -289 / -289 509 / 509 60 / 60 Weight 227 lb 6 oz 227 lb 1.218 oz 227 lb 1.218 oz - *Routine Respiratory Exam Present: decreased breath sounds, rhonchi. Absent: accessory muscle use, rales, wheezes - *Routine Cardiovascular Exam Present: RRR. 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 Status: Acute Current Visit: Yes (3) Hypertensive heart disease Status: Acute Current Visit: Yes (4) Right bundle branch block (RBBB) Status: Chronic Current Visit: Yes (5) Angina, class IV Status: Acute Current Visit: No (6) Cardiac pacemaker in situ Status: Acute Current Visit: No (7) Coronary artery disease Status: Acute Current Visit: No (8) LV dysfunction Status: Chronic Current Visit: No (9) Chronic kidney disease, stage IV (severe) Status: Chronic Current Visit: No (10) Type 2 diabetes mellitus with hyperglycemia, with long-term current use of insulin Status: Acute Current Visit: Yes (11) Pneumonia Status: Acute Current Visit: Yes Assessment and Plan for All Diagnoses:: 1. Cardiac status is stable by cardiac catheterization yesterday. Continue ASA, plavix, metoprolol and ranolazine. Isosorbide discontinued yesterday. 2. CKD, stage IV. Minimal IV contrast used yesterday but patient was started on IV fluids to maintain current kidney functions. When the events of yesterday began patient was given an IV dose of Lasix for possible CHF exacerbation. We will repeat BMP today 3. BiV AICD in situ 4. Aspiration pneumonia, post procedure. On ABX per Dr. Da Silva.
[2019-08-13 08:52] LABS: POC Glucose,Bedside 183 (70-110)
[2019-08-13 09:25] LABS: Basophils # 0.1 K/mm3 (0-0.2); Basophils % 0.6 % (0.1-2.0); Eosinophils % 0.1 % (0.1-12.0); Hematocrit 37.4 % (42.0-52.0); Hemoglobin 12.8 g/dL (14.1-18.0); Lymphocytes # 0.7 K/mm3 (0.7-4.5); Lymphocytes % 4.6 % (10-50); Mean Corpuscular HGB Conc 34.3 g/dL (31.8-35.4); Mean Corpuscular Hemoglobin 31.4 pg (27.0-31.2); Mean Corpuscular Volume 91.7 fl (80-94); Mean Platelet Volume 8.2 fl (7.4-10.4); Monocytes # 0.7 K/mm3 (0.1-1.0); Monocytes % 4.4 % (1.7-9.3); Neutrophils # 13.3 K/mm3 (1.8-7.8); Neutrophils % 90.3 % (37.0-80.0); Platelet Count 216 K/mm3 (142-424); Red Blood Count 4.08 M/mm3 (4.60-6.20); Red Cell Distribution Width 14.7 % (11.5-17.5); White Blood Count 14.7 K/mm3 (4.8-10.8)
[2019-08-13 09:26] LABS: MANUAL DIFFERENTIAL MANUAL DIFFERENTIAL (MANUAL DIFF)
[2019-08-13 12:18] LABS: Chloride 95 mmol/L (98-107); Potassium 4.8 mmoL/L (3.5-5.1); Sodium 134 mmol/L (136-145)
[2019-08-13 12:21] LABS: Blood Urea Nitrogen 57 mg/dl (9-20); Creatinine Clearance Estimated 23 mL/min (50-200); Estimated Glomerular Filt Rate 15 ml/min (>60); GFR (African American) 19 ML/MIN (>60)
[2019-08-13 12:22] LABS: Anion Gap 20.8 mEq/L (5-15); Calcium 8.7 mg/dl (8.4-10.2); Carbon Dioxide 23 mmol/L (22.0-30.0); Glucose 180 mg/dl (74-100)
[2019-08-13 12:25] LABS: POC Glucose,Bedside 181 (70-110)
[2019-08-13 14:21] LABS: Lymphocytes % 6 % (10-50); Monocytes % 6 % (2-9); Neutrophils % 88 % (42-76); RBC Morphology Normal; Total Cells Counted 100; Toxic Granulation 1+
[2019-08-13 14:22] LABS: Platelet Estimate Normal
--- NOTE | 2019-08-13 19:51 | PC.NURSE ---
PATIENT HAS BEEN AGITATED THIS SHIFT HE WANTS TO GO HOME. IT WAS THOUGHT THAT HAVING SIGNIFICANT OTHER AT BEDSIDE WOULD HELP. THIS ACTUALLY HINDERED THE SITUATION AND CAUSED THE PATIENT MORE ANXIETY AND DEMAND TO GO HOME. DR RABAGO AND THIS NURSE SPOKE TO PATIENT ABOUT THE IMPORTANCE OF CONTINUING MEDICAL CARE. HE WAS MEDIATED PER MAR FOR BACK PAIN AND HAS SETTLED DOWN AND AGREED TO STAY. VISITOR HAS WENT HOME AND HE HAS BEEN PLEASANT AND FRIENDLY SINCE. CALL LIGHT WITHIN REACH WILL CONTINUE TO MONITOR.
[2019-08-13 23:41] LABS: POC Glucose,Bedside 119 (70-110)
[2019-08-13 23:41] LABS: POC Glucose,Bedside 128 (70-110)
[2019-08-14] VITALS (9 sets, daily range): BP systolic 128–152; BP diastolic 46–70; PULSE 70–100; RESP 20–22; TEMP 36.5–36.7; O2SAT 91–95
--- NOTE | 2019-08-14 05:13 | PC.NURSE ---
PT ABLE TO ANSWER ALL QUESTIONS APPROPRIATELY, BUT ANSWERS VERY SLOWLY, AND SPEECH IS VERY SLURRED AT TIMES. PT REMAINS VERY CONFUSED T/O MAJORITY OF SHIFT WHILE AWAKE. PT TOLERATING 3LNC THIS SHIFT. PT HAS NO C/O NA/VO THIS SHIFT. PT C/O LOWER BACK PAIN X1 THIS SHIFT, TREATED WITH MORPHINE PER JUN. ON REASSESSMENT PT RESTING IN CHAIR. CATH SITE TO R INGUINAL AREA CDI. PT SLEEPING MAJORITY OF SHIFT IN CHAIR. PT REQUIRING X2 ASSIST WHEN STANDING UP TO USE URINAL, VERY UNSTEADY ON FEET. SAFETY APPLIED. NO OTHER COMPLAINTS THUS FAR, VSS WILL CONTINUE TO MONITOR
--- NOTE | 2019-08-14 05:43 | PC.NURSE ---
NO WEIGHT OBTAINED THIS AM. PT UNABLE TO BE SAFELY WEIGHED. PT UNABLE TO STAND WITH X2 ASSIST, VERY UNSTABLE ON FEET.
[2019-08-14 06:13] LABS: POC Glucose,Bedside 93 (70-110)
[2019-08-14 08:06] LABS: Basophils # 0.1 K/mm3 (0-0.2); Basophils % 0.5 % (0.1-2.0); Eosinophils # 0.1 K/mm3 (0.0-0.4); Eosinophils % 0.7 % (0.1-12.0); Hematocrit 38.3 % (42.0-52.0); Hemoglobin 12.6 g/dL (14.1-18.0); Lymphocytes % 7.2 % (10-50); Mean Corpuscular Hemoglobin 30.4 pg (27.0-31.2); Mean Corpuscular Volume 92.1 fl (80-94); Mean Platelet Volume 8.8 fl (7.4-10.4); Monocytes # 0.6 K/mm3 (0.1-1.0); Neutrophils # 12.1 K/mm3 (1.8-7.8); Neutrophils % 87.7 % (37.0-80.0); Platelet Count 212 K/mm3 (142-424); Red Blood Count 4.16 M/mm3 (4.60-6.20); Red Cell Distribution Width 14.8 % (11.5-17.5); White Blood Count 13.8 K/mm3 (4.8-10.8)
[2019-08-14 08:12] LABS: MANUAL DIFFERENTIAL MANUAL DIFFERENTIAL (MANUAL DIFF)
[2019-08-14 08:17] LABS: Anion Gap 15.4 mEq/L (5-15); Calcium 8.9 mg/dl (8.4-10.2); Carbon Dioxide 26 mmol/L (22.0-30.0); Chloride 96 mmol/L (98-107); Creatinine Clearance Estimated 24 mL/min (50-200); Estimated Glomerular Filt Rate 16 ml/min (>60); GFR (African American) 20 ML/MIN (>60); Glucose 92 mg/dl (74-100); Potassium 4.4 mmoL/L (3.5-5.1); Sodium 133 mmol/L (136-145)
[2019-08-14 08:18] LABS: Blood Urea Nitrogen 82 mg/dl (9-20)
--- NOTE | 2019-08-14 08:28 | HMH.ACPN2 ---
Internal Medicine - PN: Subj *Date: 08/14/19 *Time: 08:28 Interval history: Patient states he slept well overnight after receiving an oral dose of Ativan 1 mg. He reports shortness of breath that he believes has now returned to baseline. He continues to have a cough that is nonproductive. He denies chest pain. His significant other is at bedside and supports the idea that he is improving. Exam Vital signs and Labs for Last 24 Hours: Temp Pulse Resp BP Pulse Ox 97.9 F 80 20 139/63 95 08/14/19 03:51 08/14/19 04:00 08/14/19 03:51 08/14/19 03:51 08/14/19 03:51 Laboratory Results - last 24 hr 08/13/19 07:00: POC Glucose 183 H 08/13/19 09:05: WBC 14.7 H D, RBC 4.08 L, Hgb 12.8 L, Hct 37.4 L, MCV 91.7, MCH 31.4 H, MCHC 34.3, RDW 14.7, Plt Count 216, MPV 8.2, Neut % (Auto) 90.3 H, Lymph % (Auto) 4.6 L, [place] % (Auto) 4.4, Eos % (Auto) 0.1, Baso % (Auto) 0.6, Neut # (Auto) 13.3 H, Lymph # (Auto) 0.7, [place] # (Auto) 0.7, Eos # (Auto) 0.0, Baso # (Auto) 0.1, Total Counted 100, Neutrophils % (Manual) 88 H, Lymphocytes % (Manual) 6 L, Monocytes % (Manual) 6, Toxic Granulation 1+, Platelet Estimate Normal, RBC Morphology Normal 08/13/19 09:05: Sodium 134 L, Potassium 4.8, Chloride 95 L, Carbon Dioxide 23, Anion Gap 20.8 H, BUN 57 H D, Creatinine 3.80 H D, Estimated Creat Clear 23, Estimated GFR 15 L*, Est GFR ( Amer) 19 L* D, Glucose 180 H, Calcium 8.7 08/13/19 12:14: POC Glucose 181 H 08/13/19 16:40: POC Glucose 128 H 08/13/19 21:18: POC Glucose 119 H 08/14/19 05:20: POC Glucose 93 08/14/19 07:50: WBC 13.8 H, RBC 4.16 L, Hgb 12.6 L, Hct 38.3 L, MCV 92.1, MCH 30.4, MCHC 33.0, RDW 14.8, Plt Count 212, MPV 8.8, Neut % (Auto) 87.7 H, Lymph % (Auto) 7.2 L, [place] % (Auto) 4.0, Eos % (Auto) 0.7, Baso % (Auto) 0.5, Neut # (Auto) 12.1 H, Lymph # (Auto) 1.0, [place] # (Auto) 0.6, Eos # (Auto) 0.1, Baso # (Auto) 0.1 08/14/19 07:50: Sodium 133 L, Potassium 4.4, Chloride 96 L, Carbon Dioxide 26, Anion Gap 15.4 H, BUN 82 H D, Creatinine 3.60 H, Estimated Creat Clear 24, Estimated GFR 16 L*, Est GFR ( Amer) 20 L, Glucose 92 D, Calcium 8.9 I & O for Last 24 hours: Intake & Output 08/11/19 08/12/19 08/13/19 08/14/19 11:59 11:59 11:59 11:59 Intake Total 1311 / 1311 1184 / 1184 310 / 310 10 / 10 Output Total 1600 / 1600 675 / 675 250 / 250 600 / 600 Balance -289 / -289 509 / 509 60 / 60 -590 / -590 Weight 227 lb 6 oz 227 lb 1.218 oz 227 lb 1.218 oz Narrative: Patient appears more alert and less agitated than yesterday. Nasal cannula is in place. Lungs have rhonchi in the right upper and lower lobe anteriorly and posteriorly. Heart has a regular rate and rhythm. Lower extremities have trace edema. White blood cell count has decreased slightly. H&H remained stable. 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 Current visit: Yes Status: Acute Category: Medical Code(s): I25.710 - Atherosclerosis of autologous vein coronary artery bypass graft(s) with unstable angina pectoris (3) Hypertensive heart disease Current visit: Yes Status: Acute Qualifiers: Heart failure presence: with heart failure Heart failure type: systolic Heart failure chronicity: acute Qualified Code(s): I11.0 - Hypertensive heart disease with heart failure; I50.21 - Acute systolic (congestive) heart failure Category: Medical Code(s): I11.9 - Hypertensive heart disease without heart failure (4) Right bundle branch block (RBBB) Current visit: Yes Status: Chronic Category: Medical Code(s): I45.10 - Unspecified right bundle-branch block (5) Angina, class IV Current visit: No Status: Acute Antonia
[2019-08-14 10:14] LABS: Lymphocytes % 9 % (10-50); Monocytes % 4 % (2-9); Neutrophils % 87 % (42-76); Total Cells Counted 100
[2019-08-14 10:18] LABS: Platelet Estimate Normal; RBC Morphology Normal
--- NOTE | 2019-08-14 11:05 | HMH.PNCARD ---
Subjective Date: 08/14/19 Time: 11:00 Principal diagnosis: Chest pain, pneumonia Interval history: This is an 78-year-old white male who is sitting up in the chair with no acute distress. He declines any chest pain or chest pressure this morning. He states that he is still having shortness of breath with exertion but this is better. He denies any edema. He denies any fever, chills, nausea, vomiting, diarrhea, PND or orthopnea. He did have some hypoxia confusion and agitation yesterday. He is much better today. His creatinine has elevated to 3.60. He is going to get some gentle hydration today to help improve his renal function. His reports to me that the patient has given up and he is ready to go home and because he has lived a good life. I have had a long discussion with the that he is improving and his renal function will most likely improve with a little high IV fluid rehydration. She verbalizes understanding. Exam Vital signs and Labs for Last 24 Hours: Temp Pulse Resp BP Pulse Ox 97.7 F 89 22 128/60 94 L 08/14/19 08:00 08/14/19 08:00 08/14/19 08:00 08/14/19 08:00 08/14/19 08:00 Laboratory Results - last 24 hr 08/13/19 09:05: Total Counted 100, Neutrophils % (Manual) 88 H, Lymphocytes % (Manual) 6 L, Monocytes % (Manual) 6, Toxic Granulation 1+, Platelet Estimate Normal, RBC Morphology Normal 08/13/19 09:05: Sodium 134 L, Potassium 4.8, Chloride 95 L, Carbon Dioxide 23, Anion Gap 20.8 H, BUN 57 H D, Creatinine 3.80 H D, Estimated Creat Clear 23, Estimated GFR 15 L*, Est GFR ( Amer) 19 L* D, Glucose 180 H, Calcium 8.7 08/13/19 12:14: POC Glucose 181 H 08/13/19 16:40: POC Glucose 128 H 08/13/19 21:18: POC Glucose 119 H 08/14/19 05:20: POC Glucose 93 08/14/19 07:50: WBC 13.8 H, RBC 4.16 L, Hgb 12.6 L, Hct 38.3 L, MCV 92.1, MCH 30.4, MCHC 33.0, RDW 14.8, Plt Count 212, MPV 8.8, Neut % (Auto) 87.7 H, Lymph % (Auto) 7.2 L, [place] % (Auto) 4.0, Eos % (Auto) 0.7, Baso % (Auto) 0.5, Neut # (Auto) 12.1 H, Lymph # (Auto) 1.0, [place] # (Auto) 0.6, Eos # (Auto) 0.1, Baso # (Auto) 0.1, Total Counted 100, Neutrophils % (Manual) 87 H, Lymphocytes % (Manual) 9 L, Monocytes % (Manual) 4, Platelet Estimate Normal, RBC Morphology Normal 08/14/19 07:50: Sodium 133 L, Potassium 4.4, Chloride 96 L, Carbon Dioxide 26, Anion Gap 15.4 H, BUN 82 H D, Creatinine 3.60 H, Estimated Creat Clear 24, Estimated GFR 16 L*, Est GFR ( Amer) 20 L, Glucose 92 D, Calcium 8.9 I & O for Last 24 hours: Intake & Output 08/11/19 08/12/19 08/13/19 08/14/19 23:59 23:59 23:59 23:59 Intake Total 1795 / 1795 50 / 190 270 / 270 360 / 360 Output Total 1625 / 1925 450 / 550 700 / 700 Balance 170 / -130 -400 / -360 -430 / -430 360 / 360 Weight 227 lb 1.218 oz 227 lb 1.218 oz - Constitutional no acute distress, average body habitus - *Routine HEENT Exam Head: Present: normocephalic, atraumatic Eye: Present: EOMI, PERRL ENT: Present: mucous membranes moist - *Routine Neck Exam Present: supple, full ROM, normal carotid upstroke. Absent: JVD, carotid bruit, lymphadenopathy - *Routine Respiratory Exam Present: wheezes (Expiratory wheezing noted in the right upper and right lower lobes.) - *Routine Cardiovascular Exam Present: RRR, Normal S1, Normal S2. Absent: murmur, gallop - *Routine Abdominal Exam Present: soft, normoactive bowel sounds. Absent: tenderness, distended - *Routine Extremities Exam Present: full ROM, pulses intact, normal capillary refill. Absent: cyanosis, clubbing, edema - *Routine Skin Exam Present: intact, warm. Absent: erythema, rash - *Routine Neurological Exam Present: alert, oriented X3, CN II-XII intact. 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
[2019-08-14 12:07] LABS: POC Glucose,Bedside 145 (70-110)
[2019-08-14 16:45] LABS: POC Glucose,Bedside 125 (70-110)
--- NOTE | 2019-08-14 17:16 | PC.NURSE ---
Pt has been alert and answering questions appropriately the majority of the shift. Rt anterior/posterior lung pereira with rhonchi, left side clear. He complained of being SOB this afternoon, O2 was 92 on 3L NC. Instructed patient on breathing exercises to slow breathing, helped some but he was still concerned. Dr Da Silva notified, duoneb x1 ordered with patient reporting relief. He is very weak and unable to stand but for seconds with assist x2. +1 edema to ble. Girlfriend at bedside and supportive. Will continue to monitor.
[2019-08-14 17:42] LABS: POC Glucose,Bedside 91 (70-110)
--- NOTE | 2019-08-14 19:21 | PC.NURSE ---
report given to gisella
[2019-08-14 20:42] LABS: POC Glucose,Bedside 97 (70-110)
[2019-08-15] VITALS (8 sets, daily range): BP systolic 124–156; BP diastolic 58–71; PULSE 76–93; RESP 20–32; TEMP 36.4–37.1; O2SAT 89–94
[2019-08-15 05:58] LABS: Basophils # 0.1 K/mm3 (0-0.2); Basophils % 0.4 % (0.1-2.0); Eosinophils # 0.2 K/mm3 (0.0-0.4); Eosinophils % 1.5 % (0.1-12.0); Hematocrit 34.7 % (42.0-52.0); Lymphocytes # 1.3 K/mm3 (0.7-4.5); Mean Corpuscular HGB Conc 32.7 g/dL (31.8-35.4); Mean Corpuscular Hemoglobin 30.2 pg (27.0-31.2); Mean Corpuscular Volume 92.5 fl (80-94); Monocytes # 0.8 K/mm3 (0.1-1.0); Monocytes % 5.2 % (1.7-9.3); Neutrophils # 12.1 K/mm3 (1.8-7.8); Neutrophils % 83.9 % (37.0-80.0); Platelet Count 198 K/mm3 (142-424); Red Blood Count 3.75 M/mm3 (4.60-6.20); Red Cell Distribution Width 14.7 % (11.5-17.5); White Blood Count 14.4 K/mm3 (4.8-10.8)
[2019-08-15 06:00] LABS: Chloride 100 mmol/L (98-107); Potassium 3.9 mmoL/L (3.5-5.1); Sodium 136 mmol/L (136-145)
[2019-08-15 06:03] LABS: Anion Gap 14.9 mEq/L (5-15); Calcium 8.5 mg/dl (8.4-10.2); Carbon Dioxide 25 mmol/L (22.0-30.0); Creatinine Clearance Estimated 25 mL/min (50-200); Estimated Glomerular Filt Rate 18 ml/min (>60); GFR (African American) 21 ML/MIN (>60); Glucose 61 mg/dl (74-100)
[2019-08-15 06:10] LABS: Hemoglobin 11.4 g/dL (14.1-18.0)
[2019-08-15 06:32] LABS: Blood Urea Nitrogen 81 mg/dl (9-20)
[2019-08-15 07:08] LABS: POC Glucose,Bedside 61 (70-110)
--- NOTE | 2019-08-15 08:12 | HMH.PNCARD ---
Subjective Date: 08/15/19 Time: 08:13 Principal diagnosis: Chest pain, pneumonia Interval history: 78-year-old white male in bed. Patient has conversational dyspnea and audible wheezing. Patient's significant other is present and states that the patient wants to go home to . Patient states that he is unable to rest adequately here in the hospital due to noises and interruptions. Exam Vital signs and Labs for Last 24 Hours: Temp Pulse Resp BP Pulse Ox 97.7 F 76 22 124/71 92 L 08/15/19 04:00 08/15/19 04:00 08/15/19 04:00 08/15/19 04:00 08/15/19 04:00 Laboratory Results - last 24 hr 08/14/19 07:50: Total Counted 100, Neutrophils % (Manual) 87 H, Lymphocytes % (Manual) 9 L, Monocytes % (Manual) 4, Platelet Estimate Normal, RBC Morphology Normal 08/14/19 07:50: Sodium 133 L, Potassium 4.4, Chloride 96 L, Carbon Dioxide 26, Anion Gap 15.4 H, BUN 82 H D, Creatinine 3.60 H, Estimated Creat Clear 24, Estimated GFR 16 L*, Est GFR ( Amer) 20 L, Glucose 92 D, Calcium 8.9 08/14/19 11:55: POC Glucose 145 H 08/14/19 16:17: POC Glucose 125 H 08/14/19 17:33: POC Glucose 91 08/14/19 20:19: POC Glucose 97 08/15/19 05:43: WBC 14.4 H, RBC 3.75 L, Hgb 11.4 L, Hct 34.7 L, MCV 92.5, MCH 30.2, MCHC 32.7, RDW 14.7, Plt Count 198, MPV 9.0, Neut % (Auto) 83.9 H, Lymph % (Auto) 9.0 L, [place] % (Auto) 5.2, Eos % (Auto) 1.5, Baso % (Auto) 0.4, Neut # (Auto) 12.1 H, Lymph # (Auto) 1.3, [place] # (Auto) 0.8, Eos # (Auto) 0.2, Baso # (Auto) 0.1 08/15/19 05:43: Sodium 136, Potassium 3.9, Chloride 100, Carbon Dioxide 25, Anion Gap 14.9, BUN 81 H, Creatinine 3.40 H, Estimated Creat Clear 25, Estimated GFR 18 L*, Est GFR ( Amer) 21 L, Glucose 61 L D, Calcium 8.5 08/15/19 06:34: POC Glucose 61 L I & O for Last 24 hours: Intake & Output 08/12/19 08/13/19 08/14/19 08/15/19 11:59 11:59 11:59 11:59 Intake Total 1184 / 1184 310 / 310 370 / 370 669 / 669 Output Total 675 / 675 250 / 250 600 / 600 675 / 675 Balance 509 / 509 60 / 60 -230 / -230 -6 / -6 Weight 227 lb 1.218 oz 227 lb 1.218 oz 234 lb 3 oz - *Routine Respiratory Exam Present: wheezes, diminished air movement. Absent: accessory muscle use, rales, rhonchi - *Routine Cardiovascular Exam Present: RRR. 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 Status: Resolved Current Visit: Yes (3) Hypertensive heart disease Status: Acute Current Visit: Yes (4) Right bundle branch block (RBBB) Status: Chronic Current Visit: Yes (5) Cardiac pacemaker in situ Status: Acute Current Visit: No (6) Coronary artery disease Status: Acute Current Visit: No (7) LV dysfunction Status: Chronic Current Visit: No (8) Chronic kidney disease, stage IV (severe) Status: Chronic Current Visit: No (9) Type 2 diabetes mellitus with hyperglycemia, with long-term current use of insulin Status: Acute Current Visit: Yes (10) Pneumonia Status: Acute Current Visit: Yes (11) Acute kidney injury Status: Acute Current Visit: Yes Assessment and Plan for All Diagnoses:: 1. Aspiration pneumonia, requiring supplemental oxygen as well as antibiotic therapy. Standing chest x-ray is pending today 2. Coronary artery disease, clinically stable by left heart catheterization this admission 3. Chronic kidney disease, transient increase in creatinine post cardiac catheterization, improving slowly. 4. Non-ST elevation [place], type II in conjunction with chronic kidney disease. Discussed recommendation to stay in the hospital for further treatment with the patient and his significant other.
--- NOTE | 2019-08-15 08:20 | HMH.ACPN2 ---
Internal Medicine - PN: Subj *Date: 08/15/19 *Time: 08:21 Interval history: Patient admits he did not sleep very well which frustrates him. He also reports he is more short of breath this morning. He states his shortness of breath is above baseline. His cough is primarily nonproductive. He denies chest pain. He does feel like his hands are swollen. Exam Vital signs and Labs for Last 24 Hours: Temp Pulse Resp BP Pulse Ox 97.7 F 76 22 124/71 92 L 08/15/19 04:00 08/15/19 04:00 08/15/19 04:00 08/15/19 04:00 08/15/19 04:00 Laboratory Results - last 24 hr 08/14/19 07:50: Total Counted 100, Neutrophils % (Manual) 87 H, Lymphocytes % (Manual) 9 L, Monocytes % (Manual) 4, Platelet Estimate Normal, RBC Morphology Normal 08/14/19 11:55: POC Glucose 145 H 08/14/19 16:17: POC Glucose 125 H 08/14/19 17:33: POC Glucose 91 08/14/19 20:19: POC Glucose 97 08/15/19 05:43: WBC 14.4 H, RBC 3.75 L, Hgb 11.4 L, Hct 34.7 L, MCV 92.5, MCH 30.2, MCHC 32.7, RDW 14.7, Plt Count 198, MPV 9.0, Neut % (Auto) 83.9 H, Lymph % (Auto) 9.0 L, [place] % (Auto) 5.2, Eos % (Auto) 1.5, Baso % (Auto) 0.4, Neut # (Auto) 12.1 H, Lymph # (Auto) 1.3, [place] # (Auto) 0.8, Eos # (Auto) 0.2, Baso # (Auto) 0.1 08/15/19 05:43: Sodium 136, Potassium 3.9, Chloride 100, Carbon Dioxide 25, Anion Gap 14.9, BUN 81 H, Creatinine 3.40 H, Estimated Creat Clear 25, Estimated GFR 18 L*, Est GFR ( Amer) 21 L, Glucose 61 L D, Calcium 8.5 08/15/19 06:34: POC Glucose 61 L I & O for Last 24 hours: Intake & Output 08/12/19 08/13/19 08/14/19 08/15/19 11:59 11:59 11:59 11:59 Intake Total 1184 / 1184 310 / 310 370 / 370 669 / 669 Output Total 675 / 675 250 / 250 600 / 600 675 / 675 Balance 509 / 509 60 / 60 -230 / -230 -6 / -6 Weight 227 lb 1.218 oz 227 lb 1.218 oz 234 lb 3 oz Narrative: Patient has increased work of breathing and audible wheezes can be heard from across the room. He has frequent cough that sounds dry. Nasal cannula is in place but patient is unaware that oxygen is actually not flowing. Lungs have expiratory wheezes heard anteriorly. Heart has a regular rate and rhythm. Abdomen is soft. Patient has his chronic lower extremity edema that does not appear to worse than yesterday. There is no significant swelling of the hands. Labs show stable H&H. Patient's white count is risen slightly. Creatinine has decreased from 3.6-3.4. 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 Current visit: Yes Status: Resolved Category: Medical Code(s): I25.710 - Atherosclerosis of autologous vein coronary artery bypass graft(s) with unstable angina pectoris (3) Hypertensive heart disease Current visit: Yes Status: Acute Qualifiers: Heart failure presence: with heart failure Heart failure type: systolic Heart failure chronicity: acute Qualified Code(s): I11.0 - Hypertensive heart disease with heart failure; I50.21 - Acute systolic (congestive) heart failure Category: Medical Code(s): I11.9 - Hypertensive heart disease without heart failure (4) Right bundle branch block (RBBB) Current visit: Yes Status: Chronic Category: Medical Code(s): I45.10 - Unspecified right bundle-branch block (5) Cardiac pacemaker in situ Current visit: No Status: Acute Category: Medical Code(s): Z95.0 - Presence of cardiac pacemaker (6) Coronary artery disease Current visit: No Status: Acute Category: Medical Code(s): I25.10 - Atherosclerotic heart disease of [place] coronary artery without angina pectoris (7) LV dysfunction Current visit: No Status: Chronic Category: Medical Code(s): I51.9 - Heart disease, unspecified (8) Chronic kidney disease, stage IV (severe) Current visit: No
--- NOTE | 2019-08-15 08:23 | XR_ITS ---
PROCEDURE: XR CHEST 2V CLINICAL HISTORY: pneumonia progress Follow-up pneumonia, previous smoker COMPARISON: [id number] XR chest portable from 06/01/2018 XR CHEST 2V from 08/10/2019 XR CHEST PORTABLE from 08/12/2019 FINDINGS: There is mild cardiomegaly without failure. Biventricular pacemaker is present with a right atrial lead. Chronic interstitial changes are present. Right upper and right lower lobe pneumonia once again noted. There is also some increased density in the left suprahilar region suspicious for pneumonia. There are multiple old right rib fractures. IMPRESSION: Right upper and right lower lobe pneumonia not significantly change with suspected new left suprahilar pneumonia Dictated by: Salas Alex MD 08/15/2019 14:36 Electronically signed by Salas Alex MD in [place] 08/15/2019 14:36
--- NOTE | 2019-08-15 09:07 | PC.NURSE ---
Late Entry: Pt is A&O to person, place & president. Pt has ambulated from bed to chair and back to bed 1x this shift and tolerated poor d/t unsteady balance and weakness. Pt c/o pain to neck and back, medicated per JUN. Pt c/o SOB but states I am always like this , pt requested cough med and was given 2x doses. Pt did not require any insulin coverage, this am his FS was 61, pt was given 2 cups of OJ which he drank all of immediately. Pt continues to c/o feeling too hot and then too cold, pt remains afebrile. After 12am, pt was found to have NC off and in the floor, when attempting to place O2 back on pt he refused to let this RN place it on him by holding his hands up and grabbing this RN's hands shouting I don't want it . Pt educated on need of o2 and that it would help with his breathing, that his oxygenation is not yet back to baseline. Pt continues to refuse. His O2 sat during the night was 90-92% on room air, while asleep. This am it was readdressed with pt the need for O2 d/t his work of breathing increased greatly after ambulating to the bed with staff x2 assist. Pt continued to refuse. Pt's IV to RAC was found to have infiltrated, IV removed and dressed with gauze and coban. Pt educated the need for new IV, which he refused stating I am going home this morning so there is not point . Call light within reach, report given to Jennifer Ferguson RN
[2019-08-15 11:50] LABS: POC Glucose,Bedside 167 (70-110)
[2019-08-15 12:04] LABS: POC Glucose,Bedside 144 (70-110)
[2019-08-15 16:39] LABS: POC Glucose,Bedside 190 (70-110)
--- NOTE | 2019-08-15 17:44 | PC.NURSE ---
Pt has been pleasant and cooperative this shift. During AM assessment pt had complaints of pain and SOA. Pt received morphine and a Duoneb tx with favorable results. O2 is administered via NC @ 2 LPM with sats >90%. 20 G peripheral IV inserted in the LT forearm this shift, SL with no s/s of infiltration. Pt has been up to chair the majority of this shift and ambulates with 1 assist. AM assessment remains unchanged. Abnormal results are still present: Non-pitting edema noted to BLE; lung sounds reveal expiratory rhonchi; and scattered bruising noted to BUE. No BM this shift. Pt uses the urinal to void clear, yellow urine. FSBS results at lunch were 144, which did not require insulin coverage. FSBS results at dinner were 190, which required 5 units insulin per sliding scale. VSS. Call light within reach. Will continue to monitor.
[2019-08-16] VITALS: BP 145/62; PULSE 84; RESP 22; TEMP 37.2; O2SAT 94
[2019-08-16 00:57] LABS: POC Glucose,Bedside 156 (70-110)
[2019-08-16 04:00] VITALS: BP 136/58; PULSE 80; RESP 20; TEMP 36.9; O2SAT 93
--- NOTE | 2019-08-16 06:00 | PC.NURSE ---
Pt is A&Ox3 and has ambulated from chair to bed and back to chair with staff assistx2, pt is tolerated ambulation more easily with each instance though pt can become very SOB and labored breathing which heightens anxiety. Rhochi noted right lung auscultation and some wheezing noted bilat anterior. Pt has maintained o2 sats well, 93-94% on 2L NC. Pt slept intermittently, c/o that medicine doesn't do a good of job as it did that first time . Pt has c/o back and shoulder pain, medicated per JUN. Pt did require Morphine 1x dose r/t pain and difficulty breathing, pt was able to calm down and rest for a little while post medication and being transferred back to chair. VSS, call light within reach.
[2019-08-16 06:15] LABS: Basophils # 0.1 K/mm3 (0-0.2); Basophils % 0.3 % (0.1-2.0); Eosinophils # 0.1 K/mm3 (0.0-0.4); Hematocrit 33.2 % (42.0-52.0); Lymphocytes # 0.9 K/mm3 (0.7-4.5); Lymphocytes % 6.3 % (10-50); Mean Corpuscular Hemoglobin 30.9 pg (27.0-31.2); Mean Corpuscular Volume 93.5 fl (80-94); Mean Platelet Volume 8.6 fl (7.4-10.4); Monocytes # 0.8 K/mm3 (0.1-1.0); Monocytes % 5.9 % (1.7-9.3); Neutrophils # 12.4 K/mm3 (1.8-7.8); Neutrophils % 86.5 % (37.0-80.0); Platelet Count 204 K/mm3 (142-424); Red Blood Count 3.55 M/mm3 (4.60-6.20); Red Cell Distribution Width 14.7 % (11.5-17.5); White Blood Count 14.4 K/mm3 (4.8-10.8)
[2019-08-16 06:20] VITALS: PULSE 77; O2SAT 93
[2019-08-16 06:20] LABS: MANUAL DIFFERENTIAL MANUAL DIFFERENTIAL (MANUAL DIFF)
[2019-08-16 06:21] LABS: Calcium 8.8 mg/dl (8.4-10.2); Carbon Dioxide 25 mmol/L (22.0-30.0); Chloride 100 mmol/L (98-107); Creatinine Clearance Estimated 28 mL/min (50-200); Estimated Glomerular Filt Rate 19 ml/min (>60); GFR (African American) 23 ML/MIN (>60); Glucose 140 mg/dl (74-100); Sodium 134 mmol/L (136-145)
[2019-08-16 06:24] LABS: Blood Urea Nitrogen 91 mg/dl (9-20)
[2019-08-16 07:19] LABS: POC Glucose,Bedside 152 (70-110)
[2019-08-16 08:00] VITALS: BP 145/60; PULSE 85; RESP 22; TEMP 36.6; O2SAT 95
[2019-08-16 08:42] VITALS: PULSE 85; RESP 22; O2SAT 95
[2019-08-16 08:59] LABS: Lymphocytes % 10 % (10-50); Monocytes % 5 % (2-9); Neutrophils % 85 % (42-76); Total Cells Counted 100
[2019-08-16 09:00] LABS: Platelet Estimate Normal; RBC Morphology Normal
[2019-08-16 09:05] LABS: POC Glucose,Bedside 189 (70-110)
--- NOTE | 2019-08-16 09:35 | PC.NURSE ---
Room air O2 saturation: 87%
--- NOTE | 2019-08-16 10:15 | SW/DCPLANNER ---
SET UP HOME 02 AND NEBULIZER FOR THIS PATIENT TO BE DELIVERED TO THE HOSPITAL PRIOR TO PATIENT DISCHARGING TO HOME.. NURSE TO EDUCATE PATIENT ON HOW TO USE NEBULIZER AND SETTINGS ON HIS PORTABLE TANK..
== END 2019-08-16 11:12 | disposition home or self-care (01) | DRG 280 ==
LOC: ER 16:50 → 2ND 17:42
PROVIDERS: Internal Medicine; Admitting Provider Internal Medicine Adolescent Medicine; Emergency Provider Family Medicine; PCP Family Medicine; Visit Provider Family Medicine
PROC: 4A023N7 Measurement of Cardiac Sampling and Pressure, Left Heart, Percutaneous Approach (ICD-10-PCS; principal; 2019-08-12 12:15)
DX: I21.4 Non-ST elevation (NSTEMI) myocardial infarction (principal); I50.21 Acute systolic (congestive) heart failure; J69.0 Pneumonitis due to inhalation of food and vomit; I13.0 Hypertensive heart and chronic kidney disease with heart failure and stage 1 through stage 4 chronic kidney disease, or unspecified chronic kidney disease; N18.4 Chronic kidney disease, stage 4 (severe); N17.9 Acute kidney failure, unspecified; J95.89 Other postprocedural complications and disorders of respiratory system, not elsewhere classified; Z95.0 Presence of cardiac pacemaker; I45.10 Unspecified right bundle-branch block; I25.110 Atherosclerotic heart disease of native coronary artery with unstable angina pectoris; E11.65 Type 2 diabetes mellitus with hyperglycemia; Z79.4 Long term (current) use of insulin
CPT/HCPCS: 36415; 71045; 71046; 80048; 80053; 82803; 82962; 84484; 85007; 85025; 85347; 85610; 85730; 93005; 93306; 93458; 94640; 94760; 94761; 96365; 96367; 96374; 96375; 96376; 99284; C1725; C1769; J1644; J1956; J2405; J2720; Q9967

== ENCOUNTER 2019-08-19 23:26 | Observation (INO) | payer MEDICARE, SELFPAY ==
[2019-08-19 23:28] VITALS: BMI 41.0
--- NOTE | 2019-08-19 23:29 | XR_ITS ---
PROCEDURE: XR CHEST PORTABLE CLINICAL HISTORY: soa Shortness of air, former smoker COMPARISON: XR CHEST 2V from 08/10/2019 XR CHEST PORTABLE from 08/12/2019 XR CHEST 2V from 08/15/2019 FINDINGS: Cardiomegaly without failure. There is a biventricular pacemaker with right atrial lead present. There is some right upper lobe volume loss with some elevation of the right minor fissure and slight increased density in the right midlung which may be due to some mild infiltrate. Chronic pulmonary changes are noted. There are multiple old right-sided rib fractures with pleural thickening IMPRESSION: Chronic changes with right upper lobe volume loss/infiltrate Dictated by: Salas Alex MD 08/20/2019 07:40 Electronically signed by Salas Alex MD in [facility] 08/20/2019 07:40
[2019-08-19 23:31] VITALS: BP 134/78; PULSE 84; RESP 22; TEMP 36.6; O2SAT 94; BMI 40.6
--- NOTE | 2019-08-19 23:36 | PC.NURSE ---
blood that was obtained by ems sent to lab at this time.
[2019-08-19 23:38] LABS: Microscopic, Urine URINE MICROSCOPIC (MICROSCOPIC)
--- NOTE | 2019-08-19 23:39 | PC.NURSE ---
rad at bedside. xray completed.
[2019-08-19 23:43] LABS: Basophils # 0.1 K/mm3 (0-0.2); Basophils % 0.8 % (0.1-2.0); Eosinophils # 0.3 K/mm3 (0.0-0.4); Eosinophils % 1.5 % (0.1-12.0); Hematocrit 32.4 % (42.0-52.0); Hemoglobin 10.5 g/dL (14.1-18.0); Lymphocytes % 12.1 % (10-50); Mean Corpuscular HGB Conc 32.3 g/dL (31.8-35.4); Mean Corpuscular Hemoglobin 28.9 pg (27.0-31.2); Mean Corpuscular Volume 89.6 fl (80-94); Mean Platelet Volume 8.1 fl (7.4-10.4); Monocytes % 5.9 % (1.7-9.3); Neutrophils # 13.4 K/mm3 (1.8-7.8); Neutrophils % 79.7 % (37.0-80.0); Platelet Count 299 K/mm3 (142-424); Red Blood Count 3.61 M/mm3 (4.60-6.20); White Blood Count 16.8 K/mm3 (4.8-10.8)
[2019-08-19 23:43] LABS: Appearance,Urine CLEAR (Clear); Bilirubin,Urine Negative (Negative); Blood, Urine 1+ (Negative); Color,Urine YELLOW (Yellow); Glucose,Urine (UA) Negative (Negative); Ketones,Urine Negative (Negative); Leukocyte Esterase,Urine Negative (Negative); Nitrate,Urine Negative (Negative); PH,Urine 5.5 (5.0-8.5); Protein,Urine Negative (Negative); Urobilinogen,Urine 0.2 EU/dl (0.2)
[2019-08-19 23:46] LABS: Chloride 103 mmol/L (98-107); Potassium 3.7 mmoL/L (3.5-5.1); Sodium 135 mmol/L (136-145)
[2019-08-19 23:48] LABS: Creatinine Clearance Estimated 40 mL/min (50-200); Estimated Glomerular Filt Rate 24 ml/min (>60); GFR (African American) 29 ML/MIN (>60); MANUAL DIFFERENTIAL MANUAL DIFFERENTIAL (MANUAL DIFF)
[2019-08-19 23:49] LABS: Alanine Aminotransferase 38 U/L (12-78); Albumin Level 3.1 g/dl (3.5-5.0); Albumin/Globulin Ratio 0.9 (1.1-1.8); Alkaline Phosphatase 180 U/L (38-126); Aspartate Amino Transferase 54 U/L (17-59); Bilirubin,Total 0.5 mg/dl (0.2-1.3); Calcium 9.1 mg/dl (8.4-10.2); Globulin 3.4 g/dL (1.3-3.2); Glucose 164 mg/dl (74-100); Total Protein,Serum 6.5 g/dl (6.3-8.2)
[2019-08-19 23:50] LABS: Bacteria,Urine 1+ /lpf; Lactic Acid 1.5 mmol/L (0.7-2.1)
[2019-08-19 23:57] LABS: Blood Urea Nitrogen 87 mg/dl (9-20)
--- NOTE | 2019-08-19 23:57 | HMH.EDSOB ---
ED Disposition Clinical Impression: Chronic renal failure, stage 4 (severe), Cardiac pacemaker in situ, Right bundle branch block (RBBB), Left anterior fascicular block, SIRS (systemic inflammatory response syndrome), Type 2 diabetes mellitus with hyperglycemia, with long-term current use of insulin CHF (congestive heart failure) Qualifiers: Heart failure type: unspecified Heart failure chronicity: acute on chronic Qualified Code(s): I50.9 - Heart failure, unspecified Disposition: Admitted as Observation Condition on Discharge: Fair - Critical Care Critical Care Time: No Attestation: On 08/19/19, the high probability of a clinically significant, sudden or life threatening deterioration of the following system(s) required my full and direct attention, intervention and personal management. The time I documented below is in addition to time spent performing reported procedures but includes the following listed in this critical care notation. Medical Decision Making - Medical Records Medical records reviewed: Yes: I reviewed the patient's medical records. - Sunil Inquiry Pt receiving controlled substance: No Vital Signs: 08/19/19 23:31 08/19/19 23:58 08/20/19 00:34 Temperature 97.8 F Temperature Source Oral Pulse Rate [Right Brachial] 84 82 81 Respiratory Rate 22 22 18 Blood Pressure [Right Arm] 134/78 142/74 H 164/72 H Blood Pressure Mean [Right Arm] 96 96 102 Blood Pressure Source [Right Arm] Automatic Cuff Automatic Cuff Automatic Cuff Blood Pressure Position [Right Arm] Sitting Sitting Sitting 02 Sat by Pulse Oximetry 94 L 95 98 Oxygen Delivery Method Nasal Cannula Nasal Cannula Room Air Oxygen Flow Rate (LPM) 2 2 - Lab Data Lab results reviewed: Yes: I reviewed the patient's lab results. Lab Results 08/19/19 23:15: WBC 16.8 H, RBC 3.61 L, Hgb 10.5 L, Hct 32.4 L, MCV 89.6, MCH 28.9, MCHC 32.3, RDW 15.0, Plt Count 299 D, MPV 8.1, Neut % (Auto) 79.7, Lymph % (Auto) 12.1, [place] % (Auto) 5.9, Eos % (Auto) 1.5, Baso % (Auto) 0.8, Neut # (Auto) 13.4 H, Lymph # (Auto) 2.0, [place] # (Auto) 1.0, Eos # (Auto) 0.3, Baso # (Auto) 0.1, Total Counted 100, Neutrophils % (Manual) 85 H, Lymphocytes % (Manual) 13, Monocytes % (Manual) 1 L, Eosinophils % (Manual) 1, Platelet Estimate Normal, RBC Morphology Normal 08/19/19 23:15: Sodium 135 L, Potassium 3.7, Chloride 103, Carbon Dioxide 21 L, Anion Gap 14.7, BUN 87 H, Creatinine 2.60 H, Estimated Creat Clear 40, Estimated GFR 24 L, Est GFR ( Amer) 29 L, Glucose 164 H, Calcium 9.1, Total Bilirubin 0.5, AST 54, ALT 38, Alkaline Phosphatase 180 H, Troponin I 0.43 H, Total Protein 6.5, Albumin 3.1 L, Globulin 3.4 H, Albumin/Globulin Ratio 0.9 L 08/19/19 23:30: Lactate 1.5 08/19/19 23:30: Urine Color Yellow, Urine Appearance Clear, Urine pH 5.5, Ur Specific [place] [address] 1.020, Urine Protein Negative, Urine Glucose (UA) Negative, Urine Ketones Negative, Urine Blood 1+, Urine Nitrate Negative, Urine Bilirubin Negative, Urine Urobilinogen 0.2, Ur Leukocyte Esterase Negative, Urine RBC 5-10, Urine WBC 3-5, Urine Bacteria 1+ 08/19/19 23:30: NT-Pro-B Natriuret Pep 3010 H Result diagrams: 08/19/19 23:15 08/19/19 23:15 Orders (Tests/Meds): ED MEDICATIONS Discontinued Medications Generic Name Dose Route Start Last Admin Trade Name Masonq PRN Reason Stop Dose Admin Furosemide 60 mg 08/20/19 00:35 08/20/19 00:37 Lasix 100mg/10ml Vial IV 08/20/19 00:36 60 mg ONCE ONE Administration ORDERS Category Date Time Status XR chest portable Stat Exams 08/19/19 23:29 Taken SARS-CoV-2, DAVE Stat Lab 08/20/19 00:36 Ordered Troponin I Q3H Lab 08/20/19 02:30 Ordered Troponin I Q3H Lab 08/20/19 05:30 Ordered Blood Culture Stat Micro 08/19/19 23:30 Received Urine Culture(cathed specimen) Stat Micro 08/19/19 23:30 Received - Radiology Data #1 Image(s): Chest Image Reviewed: Yes I reviewed the patient's radiology image Preliminary Findings: Abnormal (chroni
[2019-08-19 23:58] VITALS: BP 142/74; PULSE 82; RESP 22; O2SAT 95
--- NOTE | 2019-08-19 23:58 | ECG_ITS ---
APPROVED REPORT Exam: Resting ECG HR:85 bpm ECG Measurements Heart Rate 85 AXES SD 182 P 21 QRSd 150 QRS -56 QT 428 T 58 QTc 509 <Conclusion> Sinus rhythm with premature ventricular complexes Right bundle branch block Left anterior fascicular block Bifascicular block Abnormal ECG Electronically signed by : Ernesto Tabor, 08/20/2019 16:37:57
[2019-08-20] VITALS (7 sets, daily range): BP systolic 118–164; BP diastolic 46–80; PULSE 64–81; RESP 18–24; TEMP 36.6–36.8; O2SAT 91–98; BMI 29.0
[2019-08-20 00:01] LABS: Troponin I 0.43 ng/ml (0.00-0.034)
[2019-08-20 00:15] LABS: Anion Gap 14.7 mEq/L (5-15); Carbon Dioxide 21 mmol/L (22.0-30.0)
--- NOTE | 2019-08-20 00:19 | PC.NURSE ---
transferred patient from [facility] to [facility] using 2 person mod assist. pt very unsteady on feet. alert, oriented. states he needs to move for his back pain complaints. when questioned on how long he had had back pain, he stated 39 years. nothing acute.
[2019-08-20 00:23] LABS: NT Pro Brain Natriuretic Pep. 3010 pg/mL (0-450)
--- NOTE | 2019-08-20 00:25 | PC.NURSE ---
paged dr stroud.
[2019-08-20 00:26] LABS: Eosinophils % 1 % (0-3); Lymphocytes % 13 % (10-50); Monocytes % 1 % (2-9); Neutrophils % 85 % (42-76); Total Cells Counted 100
--- NOTE | 2019-08-20 00:26 | PC.NURSE ---
sig other updated at this time by plumbing warehouse helper
[2019-08-20 00:27] LABS: Platelet Estimate Normal; RBC Morphology Normal
--- NOTE | 2019-08-20 00:55 | PC.NURSE ---
lab at bedside obtaining covid swab prior to floor placement due to recent pneumonia and soa
[2019-08-20 00:58] LABS: Adenovirus,PCR Not Detected (NotDetected); Bordetella Pertussis Not Detected (NotDetected); Chlamydophila Pneumoniae, PCR Not Detected (NotDetected); Coronavirus 19, PCR Not Detected (NotDetected); Coronavirus 229E Not Detected (NotDetected); Coronavirus NL63 Not Detected (NotDetected); Coronavirus OC43 Not Detected (NotDetected); Coronovirus HKU1,PCR Not Detected (NotDetected); Human Metapneumovirus Not Detected (NotDetected); Influenza A, PCR Not Detected (NotDetected); Influenza AH1, 2009 Not Detected (NotDetected); Influenza AH1, PCR Not Detected (NotDetected); Influenza AH3,PCR Not Detected (NotDetected); Influenza B, PCR Not Detected (NotDetected); Mycoplasma Pneumoniae, PCR Not Detected (NotDected); Parainfluenza 1, PCR Not Detected (NotDetected); Parainfluenza 2, PCR Not Detected (NotDetected); Parainfluenza 3, PCR Not Detected (NotDetected); Parainfluenza 4, PCR Not Detected (NotDetected); Respiratory Syncytial Virus Not Detected (NotDetected); Rhinovirus/Enterovirus Not Detected (NotDetected)
--- NOTE | 2019-08-20 01:00 | PC.NURSE ---
family was updated at this time bertin bolden [phone]
--- NOTE | 2019-08-20 01:51 | PC.NURSE ---
charted on the wrong patient, i meant to chart on 207
--- NOTE | 2019-08-20 02:40 | PC.NURSE ---
COVID TEST NEGATIVE. PTOK TO GO TO FLOOR. BLOOD OBTAINED AND SENT FOR SECOND TROPONIN LEVEL. RECEIVING NURSE AWARE OF COVID (-) RESULT. DISCUSSED SEPSIS VS SIRS. IDENTIFIED WITH NURSE THAT PATIENT IS CURRENTLY ON PO ATB'S FOR PREV DIAGNOSED PNEUMONIA. NO NEW INFECTION. PT ADDITIONALLY UNABLE TO TOLERATE LARGE BOLUS OF IVF'S.
--- NOTE | 2019-08-20 02:51 | PC.NURSE ---
pt arrived to floor via stretcher from ED
[2019-08-20 03:19] LABS: Thyroid Stimulating Hormone 3.58 uIU/mL (0.465-4.68)
--- NOTE | 2019-08-20 05:35 | PC.NURSE ---
PT ALERT AND ORIENTED, RESTING COMFORTABLY IN THE CHAIR WITH LOWER EXTREMITIES ELEVATED. CURRENTLY ON ROOM AIR. O2 SATURATION OF 94%. HAS COMPLAINED OF SHORTNESS OF AIR AT TIMES. CRACKLES NOTED TO LEFT BASE. RHONCHI NOTED THROUGHOUT. UPON ASSESSMENT PT WAS NOTED TO HAVE EDEMA TO ALL EXTREMITIES, BLE 3+ WEEPING WITH 3 OPEN BLISTERS. WOUNDS DRESSED TO PREVENT INFECTION WITH TELFA AND SOFT CAST ROLL. PT HAS COMPLAINED OF BACK PAIN AND HEADACHE. HE IS NOT TOLERATING ELEVATION OF EXTREMITIES. MD URBAN NOTIFIED THAT PATIENT MET SEPSIS CRITERIA. PER TELEPHONE ORDER [id number] 1GM IV ONE TIME ORDERED AND ADMINISTERED. PT TOLERATED WELL. NORMAL SALINE CURRENTLY INFUSING AT 50ML/HR. INDWELLING CATHETER DRAINING TO CHAIRSIDE WITH 700 TOTAL URINE OUTPUT. VITAL SIGNS STABLE. NO OTHER CONCERNS AT THIS TIME. WILL CONTINUE TO MONITOR.
[2019-08-20 06:00] LABS: Basophils # 0.1 K/mm3 (0-0.2); Basophils % 0.6 % (0.1-2.0); Eosinophils # 0.2 K/mm3 (0.0-0.4); Eosinophils % 1.1 % (0.1-12.0); Hematocrit 33.9 % (42.0-52.0); Hemoglobin 11.1 g/dL (14.1-18.0); Lymphocytes % 11.1 % (10-50); Mean Corpuscular HGB Conc 32.6 g/dL (31.8-35.4); Mean Corpuscular Hemoglobin 29.3 pg (27.0-31.2); Mean Corpuscular Volume 89.9 fl (80-94); Mean Platelet Volume 8.1 fl (7.4-10.4); Monocytes # 0.7 K/mm3 (0.1-1.0); Monocytes % 4.1 % (1.7-9.3); Neutrophils # 14.7 K/mm3 (1.8-7.8); Neutrophils % 83.1 % (37.0-80.0); Platelet Count 277 K/mm3 (142-424); Red Blood Count 3.77 M/mm3 (4.60-6.20); White Blood Count 17.6 K/mm3 (4.8-10.8)
[2019-08-20 06:06] LABS: Chloride 105 mmol/L (98-107)
[2019-08-20 06:07] LABS: Potassium 3.6 mmoL/L (3.5-5.1); Sodium 136 mmol/L (136-145)
[2019-08-20 06:10] LABS: Anion Gap 12.6 mEq/L (5-15); Calcium 8.9 mg/dl (8.4-10.2); Carbon Dioxide 22 mmol/L (22.0-30.0); Creatinine Clearance Estimated 34 mL/min (50-200); Estimated Glomerular Filt Rate 25 ml/min (>60); GFR (African American) 30 ML/MIN (>60); Glucose 113 mg/dl (74-100)
[2019-08-20 06:12] LABS: Blood Urea Nitrogen 88 mg/dl (9-20)
--- NOTE | 2019-08-20 07:26 | HMH.HPDC ---
General - General Admission date:: 08/20/19 Discharge date: 08/20/19 *Admission Date: 08/20/19 *Chief complaint: Blisters on legs *History of present illness: 78-year-old male with recent hospitalization for non-STEMI with acute on chronic congestive heart failure and complicated post procedurally by pneumonia that was suspected to be due to aspiration came back to the emergency department yesterday evening because he had developed some bullous lesions on his lower extremities. Patient's significant other had first noticed these lesions. Patient is a diabetic with neuropathy and there was great concern that these bullous lesions would end up becoming infected and costing him his feet. He admits he is scared of losing his feet and so he decided to present to the emergency department. Patient clearly states to me this morning that he was not feeling short of breath when he came to the emergency department. Nonetheless a work-up was begun. Findings included white blood cell count higher than when he was discharged from the hospital 3 days prior, creatinine that was significantly improved compared to his day of hospital discharge, and abnormal appearing chest x-ray. Patient was currently taking oral antibiotics for his pneumonia. Patient was given 60 mg of Lasix intravenously. Patient had room air sat of 94%. Patient was admitted for observation. On admission the bullous appearing lesions of his legs of which there were 2 bulla along with what appears to be an abrasion of the right hamm were dressed. All wounds were weeping serous fluid. [facility] History I have reviewed the patient's past medical history: Yes Medical History: Reports:: Congestive Heart Failure, Chronic Obstructive Pulmonary Disease (COPD), Coronary Artery Disease, Diabetes Mellitus Type 2, Gastroesophageal Reflux Disease(GERD), Hyperlipidemia, Hypertension, Internal Pacemaker (AICD), Renal Disease, Renal Insufficiency Denies:: Cancer, Diabetes Mellitus Type 1, MRSA, Seizures *Have you ever received a pneumonia vaccine?: No *Have you received a flu vaccine this season?: No Other Medical History: Reports: Cataracts, Other. Denies: Blood Transfusion Reaction Laterality Cases: Bilateral: Cataract Other Surgeries: Yes: Cardiac Catheterization, Hernia Repair, Pacemaker (AICD), Other Amputation: Yes (traumatic tip right index finger) Fractures: No - *Social History Educational Level: Attended High School Smoking Status: Former smoker Tobacco Type: cigarettes # Packs/Day (cigarettes): 4 #Yrs smoked (if former smoker): 50 Alcohol Intake: former Alcohol Intake Frequency:: 0-2 drinks per day Substance Use Type: denies use *Occupational Status:: retired Housing: house Household Members: significant other *Travel in the last 8 weeks: Inside the [place] Family Hx:: Cancer, Diabetes, Heart Attack, Hyperlipidemia, Hypertension, Kidney Disease Review of Systems - Review of Systems Review of systems:: pertinent systems reviewed and negative unless documented below - *Neurologic Denies seizure-like activity Exam Vital signs and Labs for Last 24 Hours: Temp Pulse Resp BP Pulse Ox 98.2 F 72 24 127/50 L 91 L 08/20/19 03:30 08/20/19 06:23 08/20/19 03:30 08/20/19 03:30 08/20/19 06:23 Laboratory Results - last 24 hr 08/19/19 23:15: WBC 16.8 H, RBC 3.61 L, Hgb 10.5 L, Hct 32.4 L, MCV 89.6, MCH 28.9, MCHC 32.3, RDW 15.0, Plt Count 299 D, MPV 8.1, Neut % (Auto) 79.7, Lymph % (Auto) 12.1, [place] % (Auto) 5.9, Eos % (Auto) 1.5, Baso % (Auto) 0.8, Neut # (Auto) 13.4 H, Lymph # (Auto) 2.0, [place] # (Auto) 1.0, Eos # (Auto) 0.3, Baso # (Auto) 0.1, Total Counted 100, Neutrophils % (Manual) 85 H, Lymphocytes % (Manual) 13, Monocytes % (Manual) 1 L, Eosinophils % (Manual) 1, Platelet Estimate Normal, RBC Morphology Normal 08/19/19 23:15: Sodium 135 L, Potassium 3.7, Chloride 103, Carbon Dioxide 21 L, Anion Gap 14.7, BUN 87 H, Creatinine 2.60 H, Estimated Creat Clear 40, Estimated
--- NOTE | 2019-08-20 09:15 | HMH.PTWOUND ---
Rehab Inpt Wound Evaluation Rehab IP Wound Evaluation Start: 08/20/19 07:35 Freq: ONCE Status: Active Protocol: Document 08/20/19 09:09 BRETT (Rec: 08/20/19 09:14 BRETT [id number]) Rehab PT Wound Assessment Patient Status Premedicated Prior to Dressing Change No Subjective Subjective Pt reports he has had LE swelling for 3-4 years. But RLE swole up over the last few days and formed blisters on BLE Wound Left Lower Leg Wound Type Blister Wound Bed Appearance [place] Percentage Granulated (%) 100 Surrounding Tissue Appearance Edematous-pitting Edema Type Pitting Edema Degree 2+ Query Text:1+ Trace, Barely Detectable, Rebound 15-30 seconds 2+ Moderate, Slight Indentation, Rebound 10-20 seconds 3+ Deep, Deeper Indentation, Rebound > 30 seconds 4+ Very Deep, Rebound > 60 seconds Edema Appearance Shiny,Tight Surrounding Tissue Temperature Warm Wound Drainage Description Serous Drainage Amount Large Drainage Odor No Odor Dressing Status Open to Air Primary Dressing Unna Boot Wound Secondary Dressing Type Unna Boot Right Upper Distal Foot Wound Type Blister Wound Length (cm) 5 Wound Width (cm) 6 Wound Bed Appearance [place] Percentage Granulated (%) 100 Wound Margins Description Macerated Surrounding Tissue Appearance Shiny Edema Degree 2+ Query Text:1+ Trace, Barely Detectable, Rebound 15-30 seconds 2+ Moderate, Slight Indentation, Rebound 10-20 seconds 3+ Deep, Deeper Indentation, Rebound > 30 seconds 4+ Very Deep, Rebound > 60 seconds Edema Appearance Shiny,Tight,Open Sores Surrounding Tissue Temperature Warm Wound Drainage Description Serous Drainage Amount Large Drainage Odor No Odor Dressing Status Open to Air Wound Topical Solution/Irrigant Antibiotic Irrigant Primary Dressing Unna Boot Wound Secondary Dressing Type Unna Boot Plan/Recommendation Comment Pt to have HH for wound care and dressing change Eval Complexity Eval Charge Codes 23126 - Low Complexity G-codes PT Current Status Other PT/OT Status PT Current Status Modifier CN-At least 100% impaired, limited or restricted PT Goal Status Other PT
--- NOTE | 2019-08-20 10:19 | HMH.PHAVTE ---
[facility] Pharmacy VTE Monitoring - Patient Demographics Admission date: 08/20/19 Report Date: 08/20/19 Time: 10:20 Allergies/Adverse Reactions: Patient Allergies azithromycin Allergy (Mild, Verified 08/20/19 07:45) Unknown allergy reaction clindamycin Allergy (Mild, Verified 08/20/19 07:45) Unknown allergy reaction Penicillins Allergy (Mild, Verified 08/20/19 07:45) Unknown allergy reaction ticagrelor [From Brilinta] Allergy (Mild, Verified 08/20/19 07:45) Unknown allergy reaction erythromycin base Allergy (Verified 08/20/19 07:46) Unknown allergy reaction Height: 1.88 m Weight: 102.71 kg Patient Problems: Current Active Problems Chronic renal failure, stage 4 (severe) (Acute) Cardiac pacemaker in situ (Acute) Type 2 diabetes mellitus with hyperglycemia, with long-term current use of insulin (Acute) SIRS (systemic inflammatory response syndrome) (Acute) Chronic systolic heart failure (Acute) CHF (congestive heart failure) (Chronic) Left anterior fascicular block (Chronic) Right bundle branch block (RBBB) (Chronic) - VTE Risk Labs: VTE Related Lab Results Hgb 11.1 g/dL (14.1-18.0) L 08/20/19 05:48 Hct 33.9 % (42.0-52.0) L 08/20/19 05:48 Plt Count 277 K/mm3 (142-424) 08/20/19 05:48 BUN 88 mg/dl (9-20) H 08/20/19 05:48 Creatinine 2.50 mg/dl (0.66-1.25) H 08/20/19 05:48 Estimated Creat Clear 34 mL/min (50-200) 08/20/19 05:48 Was VTE Risk Assessment Performed: Yes VTE Score: 9 VTE Risk Level: Moderate Risk - Prophylaxis VTE Prophylaxis Ordered?: Yes Types of VTE Prophylaxis: TEDS Knee High Location of Applied Device: Bilateral Lower Extremeties
--- NOTE | 2019-08-20 10:47 | SW/DCPLANNER ---
SET PATIENT UP WITH HOME HEALTH THIS MORNING PATIENT ASKED IF I COULD CALL HIS GIRLFRIEND AND SHE REQUESTED [facility]...I HAVE SENT THE REFERRAL AND REQUESTED PATIENT TO BE SEEN IN THE AM (MON).... PATIENT IS A READMISSION TO [facility]...GIRLFRIEND WILL BE COMING LATER TODAY....
[2019-08-20 11:29] LABS: POC Glucose,Bedside 169 (70-110)
[2019-08-26 13:48] LABS: POC Glucose,Bedside 178 (70-110)
== END 2019-08-20 14:06 | disposition home or self-care (01) ==
LOC: ER 23:37 → 2ND 08-20 00:46
PROVIDERS: Admitting Provider Internal Medicine Adolescent Medicine; Emergency Provider Emergency Medicine; PCP Family Medicine; Visit Provider Family Medicine
DX: R60.0 Localized edema (principal); I21.4 Non-ST elevation (NSTEMI) myocardial infarction; I50.21 Acute systolic (congestive) heart failure; I13.0 Hypertensive heart and chronic kidney disease with heart failure and stage 1 through stage 4 chronic kidney disease, or unspecified chronic kidney disease; N18.4 Chronic kidney disease, stage 4 (severe); N17.9 Acute kidney failure, unspecified; I45.10 Unspecified right bundle-branch block; I25.110 Atherosclerotic heart disease of native coronary artery with unstable angina pectoris; E11.65 Type 2 diabetes mellitus with hyperglycemia; Z79.4 Long term (current) use of insulin; Z79.899 Other long term (current) drug therapy
CPT/HCPCS: 36415; 71045; 80048; 80053; 81001; 82962; 83605; 83880; 84443; 84484; 85007; 85025; 87040; 87086; 87581; 87633; 87798; 93005; 94640; 96365; 96375; 99285; G0378; J2405